=== PATIENT | female | born 1930 | race Caucasian/White ===

== ENCOUNTER 2018-06-26 05:48 | Day surgery (SDC) | payer MEDICARE, BC ==
[2018-06-26] MEDS ORDERED: ALPRAZolam 0.25 MG TAB PO PRN (06:01)
[2018-06-26] MEDS ORDERED: NITROGLYCERIN SL TABS 0.4 MG TAB SUBLINGUAL PRN ×2 (06:01→10:16)
[2018-06-26] MEDS ORDERED: SODIUM CHLORIDE 0.9% 1,000 ML in EMPTY BAG 1 BAG IV ONE (06:01)
[2018-06-26] MEDS ORDERED: ASPIRIN 325 MG TAB PO STA (06:01)
[2018-06-26] MEDS ORDERED: ALPRAZolam 0.5 MG TAB PO PRN (06:01)
[2018-06-26] MEDS ORDERED: ATORVASTATIN 80 MG TAB PO STA (06:01)
[2018-06-26] MEDS ORDERED: LIDOCAINE 1% INJ 10MG/ML (20 ML MDV) ONE (09:06)
[2018-06-26] MEDS ORDERED: MIDAZOLAM 2 MG/2 ML VIAL ONE (09:07)
[2018-06-26] MEDS ORDERED: LIDOCAINE 1% (PF) 10MG/ML VIAL SQ ONE (09:08)
[2018-06-26] MEDS: MIDAZOLAM 2 MG/2 ML VIAL IV ONE ×2 (09:10→09:49)
[2018-06-26] MEDS ORDERED: POTASSIUM CHLORIDE 20 MEQ in WATER FOR INJECTION 1 100ML.BAG IVPB STA (09:32)
[2018-06-26] MEDS ORDERED: BIVALIRUDIN BOLUS 250 MG/50 ML IV ONE (09:42)
[2018-06-26] MEDS ORDERED: BIVALIRUDIN 250 MG in SODIUM CHLORIDE 0.9% 50 ML IV ONE (09:43)
--- NOTE | 2018-06-26 09:58 | CC ---
CARDIAC CATHETERIZATION REPORT INDICATION: Unstable angina. This is an 88-year-old lady who recently presented to me with symptoms of exertional shortness of breath and chest tightness and was advised to undergo cardiac catheterization. She had been explained of risks, benefits and alternatives understood and accepted. Her renal function showed that the BUN and creatinine are elevated. She has been brought in earlier and received hydration. She understands the risk of contrast induced nephropathy. PROCEDURE NOTE: After obtaining informed consent, left heart catheterization and coronary angiogram were performed via the right femoral artery using standard Jakob catheters. The patient tolerated the procedure well without any obvious immediate complications. The patient received moderate conscious sedation and total sedation time was 17 minutes. FINDINGS: 1. HEMODYNAMICS: Left ventricular end-diastolic pressure is 14 to 16 mm. There is no significant gradient across the aortic valve. 2. LEFT VENTRICULOGRAM: Left ventriculogram is not performed. 3. ANGIOGRAPHIC DATA: 4. Left main coronary artery: Left main coronary artery appears calcified but is free of significant stenosis. Divides into left anterior descending coronary artery and circumflex coronary artery. LAD and circumflex are calcified. The circumflex coronary artery is a nondominant vessel, shows mild nonobstructive coronary artery disease. LAD shows a 99% stenosis in its midportion with slow filling of the distal LAD. Right coronary artery is a large dominant vessel that shows mild atherosclerotic plaque in its proximal portion. CONCLUSIONS: A 99% stenosis involving mid left anterior descending artery. PLAN: Patient will undergo angioplasty of the LAD. MMODL / IJN: [id number] /
[2018-06-26] MEDS ORDERED: IOPAMIDOL-370 125ML BTL INJ ONE (10:01)
[2018-06-26] MEDS ORDERED: CLOPIDOGREL 75 MG TAB ONE (10:06)
[2018-06-26] MEDS ORDERED: NITROGLYCERIN 1000MCG/10ML SYRINGE INTRACORON ONE (10:08)
[2018-06-26] MEDS ORDERED: CLOPIDOGREL 75 MG TAB PO ONE (10:08)
[2018-06-26] MEDS ORDERED: MAG HYDROX/AL HYDROX/SIMETH 30 ML CUP PO PRN (10:16)
[2018-06-26] MEDS ORDERED: ZOLPIDEM 5 MG TAB PO PRN (10:16)
[2018-06-26] MEDS ORDERED: RX INFO: IV CONTRAST WAS GIVEN 1 EACH MISC MISCELLANE PRN (10:16)
[2018-06-26] MEDS ORDERED: ATROPINE SULFATE 0.1 MG/ML 10ML SYRINGE IV PRN (10:16)
[2018-06-26] MEDS ORDERED: IOPAMIDOL-370 100ML BTL INJ ONE (10:17)
[2018-06-26] MEDS: SODIUM CHLORIDE 0.9% 1,000 ML IV SCH (13:46)
--- NOTE | 2018-06-26 16:43 | PTCA ---
PERCUTANEOUSTRANS CORORONARY ANGIOGRAPHY DATE OF SERVICE: 06/26/2018 PROCEDURE PERFORMED: PTCA and stenting of mid left anterior descending coronary artery within a previously stented lesion which was the restenotic lesion. Drug-eluting stent was used. PERFORMED BY: Dr. Gildardo Blunt. SEDATION: Moderate conscious sedation time was 34 minutes. CLINICAL INFORMATION: Mrs. Ruth Ambrocio is an 88-year-old lady who underwent stenting of LAD performed more than 10 years ago in [place]. The details of the stent are not available. However, she came in with unstable and seen by Dr. Cifuentes, who performed the cardiac cath from right femoral approach. Catheterization revealed a there was a subtotal occlusion of the LAD with the distal half of the mid LAD stent with very sluggish flow and there was a question of some thrombus. She was advised intervention that was performed in the same setting. PROCEDURE NOTE: The existing 6-Swedish introducer in the right femoral artery was used to perform the procedure. I used initially a standard left Jakob guide catheter, but the guide support was inadequate. I switched over to a 3.5 curved XB LAD guide catheter and with this I was able to cannulate the left coronary artery. I used a Whisper wire which was a straight wire to cross the lesion. I could not cross the lesion and wire was kept at the lesion and I used a 2.25 caliber 12 mm long Trek balloon and with this combination of balloon and whisper wire, I was able to cross the lesion and wire was kept distally. Predilatation was performed with this balloon at 8-9 atmospheres. Subsequently, I advanced a 2.5 caliber 12 mm long Xience stent and deployed this in the distal half of the previous stent at 13 atmospheres. Patient did not have chest pain but had subtle EKG changes. Excellent angiographic result was achieved. Just proximal to the stented segment which was also within the previously placed stent, I dilated using a 2.75 caliber NC Trek balloon up to 12 atmospheres. Excellent angiographic result was achieved without complication. The sheath was taken out and an Angio-Seal device used to secure hemostasis. She was sent to the room in a stable condition. Results were discussed with the patient's son and [id number]. The patient received Angiomax bolus and infusion and she also received an additional 150 mg of Plavix orally. Excellent angiographic result without complication was achieved. MMODL / IJN: [id number] /
[2018-06-26] MEDS: GABAPENTIN 100 MG CAP PO SCH (20:11)
[2018-06-26] MEDS ORDERED: ATORVASTATIN 40 MG TAB PO SCH (21:00)
[2018-06-27] MEDS: SODIUM CHLORIDE 0.9% 1,000 ML IV SCH (03:08)
[2018-06-27 06:20] LABS: Basophils # (A) 0.1 k/uL (0-0.2); Basophils % (A) 1 %; Eosinophils # (A) 0.4 k/uL (0-0.7); Eosinophils % (A) 5 %; Lymphocytes % (A) 24 %; MCH 29.3 pg (25.0-35.0); MCV 94.4 fL (80.0-100.0); Mean Platelet Volume 6.6; Monocytes # (A) 0.4 k/uL (0-1.0); Monocytes % (A) 5 %; Neutrophils # (A) 5.2 k/uL (1.3-7.7); Neutrophils % (A) 64 %; Platelet Count 197 k/uL (150-450); RBC 4.45 m/uL (3.80-5.40); RDW 14.5 % (11.5-15.5); WBC 8.1 k/uL (3.8-10.6)
[2018-06-27 06:25] LABS: Calcium 8.5 mg/dL (8.4-10.2)
[2018-06-27 07:30] VITALS: BP 120/84; PULSE 89; RESP 22; TEMP 97.7
[2018-06-27] MEDS: GABAPENTIN 100 MG CAP PO SCH (08:15)
--- NOTE | 2018-06-27 08:27 | DS ---
DISCHARGE SUMMARY DIAGNOSIS: Unstable angina. PROCEDURES PERFORMED: 1. Left heart catheterization. 2. Angioplasty with stent placement of LAD. HOSPITAL COURSE: This is an 88-year-old lady who presented to me with symptoms of unstable angina in the form of new onset exertion, shortness of breath and fatigue and tiredness. She underwent cardiac catheterization for the same and found to have 99% stenosis involving mid LAD for which she underwent angioplasty with stent placement. This morning she is doing well and is free of symptoms. LABS: Show that the creatinine is normal as is the hemoglobin and platelet count. She is ambulating without any problems. PHYSICAL EXAM: Afebrile. Vital signs are stable. There is no jugular venous distention. Chest exam reveals good air entry bilaterally. Heart exam reveals first and second heart sounds and a systolic murmur at the apex. Abdomen is soft. Exam of extremities did not reveal edema. Peripheral pulses are felt. Her groin is free of bleeding, bruit, hematoma. Foot pulses are intact. EKG shows sinus rhythm with PVCs inside a paced rhythm with PVCs and nonspecific ST-T wave changes. Lab show a creatinine of 0.8, hemoglobin is 13. FOLLOWUP: Patient will be followed up in my office in a week's time. DISCHARGE MEDICATION: She will go home on: 1. Aspirin. 2. Plavix 75 mg daily. 3. Amiodarone 200 daily. 4. Norvasc 10 mg daily. 5. Zoloft. 6. Lipitor 40 mg daily. 7. Neurontin 100 b.i.d. 8. Lasix 20 mg daily. 9. Losartan hydrochlorothiazide/. 10.Toprol-XL 25 mg daily. 11.Sublingual nitroglycerin on p.r.n. basis. MMODL / IJN: [id number] /
[2018-06-27] MEDS ORDERED: HYDROCHLOROTHIAZIDE 12.5 MG CAP PO SCH (09:00)
[2018-06-27] MEDS ORDERED: AMIODARONE 200 MG TAB PO SCH (09:00)
[2018-06-27] MEDS ORDERED: CLOPIDOGREL 75 MG TAB PO SCH (09:00)
[2018-06-27] MEDS ORDERED: METOPROLOL SUCCINATE (ER) 25 MG TAB.ER.24H PO SCH (09:00)
[2018-06-27] MEDS ORDERED: SERTRALINE 100 MG TAB PO SCH (09:00)
[2018-06-27] MEDS ORDERED: CYANOCOBALAMIN 500 MCG TAB PO SCH (09:00)
[2018-06-27] MEDS ORDERED: LOSARTAN 50 MG TAB PO SCH (09:00)
[2018-06-27] MEDS ORDERED: ASPIRIN 81 MG PO SCH (09:00)
[2018-06-27] MEDS ORDERED: FUROSEMIDE 20 MG TAB PO SCH (09:00)
[2018-06-27 09:50] VITALS: BMI 35.6
[2018-06-27] MEDS ORDERED: MULTIVITAMINS, THERA 1 EACH TAB PO SCH (12:00)
[2018-07-01] MEDS ORDERED: ERGOCALCIFEROL 50,000 UNIT CAP PO SCH (09:00)
== END 2018-06-27 10:09 | disposition home or self-care (01) ==
LOC: CATHCVL 05:48 → 6SEL 10:14 → CATHCVL 06-27 10:09
PROVIDERS: ATTEND Internal Medicine Cardiovascular Disease
DX: T82.855A Stenosis of coronary artery stent, initial encounter (principal); I25.110 Atherosclerotic heart disease of native coronary artery with unstable angina pectoris; I49.3 Ventricular premature depolarization; I11.0 Hypertensive heart disease with heart failure; I50.32 Chronic diastolic (congestive) heart failure; E78.2 Mixed hyperlipidemia; I49.5 Sick sinus syndrome; Z95.0 Presence of cardiac pacemaker; Z82.49 Family history of ischemic heart disease and other diseases of the circulatory system; Z79.02 Long term (current) use of antithrombotics/antiplatelets; Z79.899 Other long term (current) drug therapy; Z88.5 Allergy status to narcotic agent
CPT/HCPCS: 93458; 80048; 85025; C9600; C1760; C1769 ×2; C1887 ×2; C1725 ×2; C1894; C1874; J2250; J3480; J0583; J2001; Q9967 ×2

== ENCOUNTER 2018-07-04 19:54 | Emergency (ER) | payer MEDICARE, BC ==
[2018-07-04 20:07] VITALS: TEMP 98.2
[2018-07-04 21:07] LABS: Basophils % (A) 0 %; Eosinophils # (A) 0.2 k/uL (0-0.7); Eosinophils % (A) 3 %; HCT 42.2 % (34.0-46.0); HGB 14.4 gm/dL (11.4-16.0); Lymphocytes # (A) 1.3 k/uL (1.0-4.8); Lymphocytes % (A) 23 %; MCH 30.3 pg (25.0-35.0); MCHC 34.1 g/dL (31.0-37.0); Mean Platelet Volume 6.8; Monocytes # (A) 0.3 k/uL (0-1.0); Monocytes % (A) 6 %; Neutrophils # (A) 3.8 k/uL (1.3-7.7); Neutrophils % (A) 67 %; Platelet Count 217 k/uL (150-450); RBC 4.75 m/uL (3.80-5.40); RDW 14.6 % (11.5-15.5); WBC 5.7 k/uL (3.8-10.6)
--- NOTE | 2018-07-04 21:15 | ED ---
SOB HPI - General Chief Complaint: Shortness of Breath Stated Complaint: Congestion Time Seen by Provider: 07/04/18 20:06 Source: patient, RN notes reviewed, old records reviewed Mode of arrival: wheelchair Limitations: no limitations - History of Present Illness Initial Comments: This is an 88-year-old female the ER for evaluation weakness and not feeling well. Overall fatigue. Patient is ER catheterization a week ago states since that she's been having difficulty with her level, bleeding mild depression. Patient just overall fatigue. Patient has had multiple recent changes in medication, multiple Medications patient is on, no fevers cough or congestion MD Complaint: shortness of breath, anxiety -: days(s) Severity: mild Severity scale (1-10): 3 Quality: other (Fatigued) Improves With: nothing Worsens With: exertion Associated Symptoms: denies other symptoms Treatments Prior to Arrival: none - Related Data Home Medications Medication Instructions Recorded Confirmed Amiodarone [Cordarone] 200 mg PO DAILY 06/24/18 07/04/18 Atorvastatin [Lipitor] 40 mg PO DAILY 06/24/18 07/04/18 Clopidogrel [Plavix] 75 mg PO DAILY 06/24/18 07/04/18 Cyanocobalamin (Vitamin B-12) 1,000 mcg PO DAILY 06/24/18 07/04/18 [Vitamin B-12] Ergocalciferol (Vitamin D2) 50,000 unit PO TH 06/24/18 07/04/18 [Vitamin D2] Furosemide [Lasix] 20 mg PO DAILY 06/24/18 07/04/18 Gabapentin [Neurontin] 100 mg PO BID 06/24/18 07/04/18 Losartan/Hydrochlorothiazide 1 tab PO DAILY 06/24/18 07/04/18 [Losartan-Hctz 100-12.5 mg Tab] Multivit with Calcium,Iron,Min 1 tab PO DAILY 06/24/18 07/04/18 [Women's Multivitamin] Sertraline [Zoloft] 100 mg PO DAILY 06/24/18 07/04/18 amLODIPine [Norvasc] 10 mg PO DAILY 06/24/18 07/04/18 Metoprolol Succinate (ER) [Toprol 25 mg PO DAILY 07/04/18 07/04/18 XL] Previous Rx's Medication Instructions Recorded Nitroglycerin Sl Tabs [Nitrostat] 0.4 mg SUBLINGUAL Q5M PRN #25 tab 06/27/18 Allergies Allergy/AdvReac Type Severity Reaction Status Date / Time morphine AdvReac Nausea & Verified 07/04/18 20:43 Vomiting Review of Systems ROS Statement: Those systems with pertinent positive or pertinent negative responses have been documented in the HPI. ROS Other: All systems not noted in ROS Statement are negative. Past Medical History Past Medical History: Heart Failure, Hyperlipidemia, Hypertension, Myocardial Infarction ([place]), Musculoskeletal Disorder, Osteoarthritis (OA) Additional Past Medical History / Comment(s): worsening SOB w/exertion, frequent fatigue, uses oxygen @2l @[facility] & sometimes during the day depending on sats., occasional stool incontinence, urinary incontinence, fell & dislocated left shoulder in February 2018-no surgery but limited mobility w/it Last Myocardial Infarction Date:: unknown History of Any Multi-Drug Resistant Organisms: None Reported Past Surgical History: Appendectomy, Heart Catheterization With Stent, Pacemaker , Tonsillectomy Past Anesthesia/Blood Transfusion Reactions: No Reported Reaction Date of Last Stent Placement:: 2007 Type of Cardiac Device: Permanent Pacemaker Device Placement Date:: 08-10-14 Past Psychological History: Anxiety, Depression Smoking Status: Never smoker Past Alcohol Use History: Occasional Past Drug Use History: None Reported - Past Family History Father Family Medical History: Cancer General Exam Limitations: no limitations General appearance: alert, in no apparent distress Head exam: Present: atraumatic, normocephalic, normal inspection Eye exam: Present: normal appearance, PERRL, EOMI. Absent: scleral icterus, conjunctival injection, periorbital swelling ENT exam: Present: normal exam, mucous membranes moist Neck exam: Present: normal inspection. Absent: tenderness, meningismus, lymphadenopathy Respiratory exam: Present: normal lung sounds bilaterally. Absent: respiratory distress, wheezes, rales, rhonchi, stridor Cardiovascular Exam: Present: regular rate, normal rhythm, normal heart sounds. Absent: systolic murmur, diastolic murmur, rubs, gallop, clicks GI/Abdominal exam: Present: soft, normal bowel sounds. Absent: distended, tenderness, guarding, rebound, rigid Extremities exam: Present: normal inspection, full ROM, normal capillary refill. Absent: tenderness, pedal edema, joint swelling, calf tenderness Back exam: Present: normal inspection Neurological exam: Present: alert, oriented X3, CN II-XII intact Psychiatric exam: Present: normal affect, normal mood Skin exam: Present: warm, dry, intact, normal color. Absent: rash Course Vital Signs 07/04/18 07/04/18 07/04/18 20:04 20:38 21:48 Temperature 98.2 F Pulse Rate 80 80 Respiratory 16 17 19 Rate Blood Pressure 106/72 123/75 O2 Sat by Pulse 94 L 96 Oximetry 07/04/18 23:25 Temperature Pulse Rate 61 Respiratory 18 Rate Blood Pressure 125/71 O2 Sat by Pulse 97 Oximetry - Reevaluation(s) Reevaluation #1: Medical records thoroughly reviewed Patient consult with at length, at this point patient is asymptomatic and will be followed up with cardiology Medical Decision Making - Medical Decision Making 88 female the ER for evaluation, patient resents for evaluation regarding fatigue patient will be discharged home - Lab Data Result diagrams: 07/04/18 20:35 07/04/18 20:35 Lab Results 07/04/18 07/04/18 07/04/18 Range/Units 20:35 20:35 20:35 WBC 5.7 (3.8-10.6) k/uL RBC 4.75 (3.80-5.40) m/uL Hgb 14.4 (11.4-16.0) gm/dL Hct 42.2 (34.0-46.0) % MCV 88.9 D (80.0-100.0) fL MCH 30.3 (25.0-35.0) pg MCHC 34.1 (31.0-37.0) g/dL RDW 14.6 (11.5-15.5) % Plt Count 217 (150-450) k/uL Neutrophils % 67 % Lymphocytes % 23 % Monocytes % 6 % Eosinophils % 3 % Basophils % 0 % Neutrophils # 3.8 (1.3-7.7) k/uL Lymphocytes # 1.3 (1.0-4.8) k/uL Monocytes # 0.3 (0-1.0) k/uL Eosinophils # 0.2 (0-0.7) k/uL Basophils # 0.0 (0-0.2) k/uL PT (9.0-12.0) sec INR (<1.2) APTT (22.0-30.0) sec Sodium 140 (137-145) mmol/L Potassium 3.8 (3.5-5.1) mmol/L Chloride 102 (98-107) mmol/L Carbon Dioxide 27 (22-30) mmol/L Anion Gap 11 mmol/L BUN 27 H (7-17) mg/dL Creatinine 0.98 (0.52-1.04) mg/dL Est GFR (CKD-EPI)AfAm 60 (>60 ml/min/1.73 sqM) Est GFR (CKD-EPI)NonAf 52 (>60 ml/min/1.73 sqM) Glucose 124 H (74-99) mg/dL Calcium 8.9 (8.4-10.2) mg/dL Phosphorus 3.6 (2.5-4.5) mg/dL Magnesium 2.2 (1.6-2.3) mg/dL Total Bilirubin 0.8 (0.2-1.3) mg/dL AST 37 H (14-36) U/L ALT 43 (9-52) U/L Alkaline Phosphatase 124 (38-126) U/L Total Creatine Kinase 34 (30-135) U/L CK-MB (CK-2) 0.8 (0.0-2.4) ng/mL CK-MB (CK-2) Rel Index 2.4 Troponin I 0.014 (0.000-0.034) ng/mL Total Protein 6.5 (6.3-8.2) g/dL Albumin 3.9 (3.5-5.0) g/dL 07/04/18 Range/Units 20:35 WBC (3.8-10.6) k/uL RBC (3.80-5.40) m/uL Hgb (11.4-16.0) gm/dL Hct (34.0-46.0) % MCV (80.0-100.0) fL MCH (25.0-35.0) pg MCHC (31.0-37.0) g/dL RDW (11.5-15.5) % Plt Count (150-450) k/uL Neutrophils % % Lymphocytes % % Monocytes % % Eosinophils % % Basophils % % Neutrophils # (1.3-7.7) k/uL Lymphocytes # (1.0-4.8) k/uL Monocytes # (0-1.0) k/uL Eosinophils # (0-0.7) k/uL Basophils # (0-0.2) k/uL PT 10.2 (9.0-12.0) sec INR 1.0 (<1.2) APTT 20.1 L (22.0-30.0) sec Sodium (137-145) mmol/L Potassium (3.5-5.1) mmol/L Chloride (98-107) mmol/L Carbon Dioxide (22-30) mmol/L Anion Gap mmol/L BUN (7-17) mg/dL Creatinine (0.52-1.04) mg/dL Est GFR (CKD-EPI)AfAm (>60 ml/min/1.73 sqM) Est GFR (CKD-EPI)NonAf (>60 ml/min/1.73 sqM) Glucose (74-99) mg/dL Calcium (8.4-10.2) mg/dL Phosphorus (2.5-4.5) mg/dL Magnesium (1.6-2.3) mg/dL Total Bilirubin (0.2-1.3) mg/dL AST (14-36) U/L ALT (9-52) U/L Alkaline Phosphatase (38-126) U/L Total Creatine Kinase (30-135) U/L CK-MB (CK-2) (0.0-2.4) ng/mL CK-MB (CK-2) Rel Index Troponin I (0.000-0.034) ng/mL Total Protein (6.3-8.2) g/dL Albumin (3.5-5.0) g/dL - EKG Data -: EKG Interpreted by Me (EKG shows paced rhythm rate of 73, CO 210, QRS 92, QTc 458) - Radiology Data Radiology results: report reviewed (Chest x-rays negative for acute disease), image reviewed Disposition Clinical Impression: Weakness Disposition: HOME SELF-CARE Condition: Good Instructions: Weakness (ED) Is patient prescribed a controlled substance at d/c from ED?: No Referrals: Oliver Balbuena MD [Primary Care Provider] - 1-2 days
[2018-07-04 21:17] LABS: Albumin 3.9 g/dL (3.5-5.0); Calcium 8.9 mg/dL (8.4-10.2); Magnesium 2.2 mg/dL (1.6-2.3); Phosphorus 3.6 mg/dL (2.5-4.5); Potassium 3.8 mmol/L (3.5-5.1); Total Bilirubin 0.8 mg/dL (0.2-1.3); Total Protein 6.5 g/dL (6.3-8.2)
[2018-07-04 21:20] LABS: MCV 88.9 fL (80.0-100.0)
[2018-07-04 21:22] LABS: Prothrombin Time 10.2 sec (9.0-12.0)
[2018-07-04 21:27] LABS: Partial Thromboplastin Time 20.1 sec (22.0-30.0)
--- NOTE | 2018-07-04 21:51 | XR ---
EXAMINATION TYPE: XR chest 2V DATE OF EXAM: 07/04/2018 COMPARISON: NONE HISTORY: Weakness TECHNIQUE: Frontal and lateral views of the chest are obtained. FINDINGS: There is no heart failure nor confluent pneumonic infiltrate. Costophrenic angles are ronald r. Thoracic aorta is atheromatous. There is left axillary pacemaker with the lead tips in the right v entricle. There are small calcified granulomata in the right lung. IMPRESSION: Aneurysmal thoracic aorta. No active cardiopulmonary disease.
[2018-07-04 22:32] LABS: Creatine Kinase MB 0.8 ng/mL (0.0-2.4); Troponin I 0.014 ng/mL (0.000-0.034)
[2018-07-04 23:26] VITALS: BP 125/71; PULSE 61; RESP 18
== END 2018-07-04 23:25 | disposition home or self-care (01) ==
LOC: EC 19:54
DX: R53.1 Weakness (principal); R06.02 Shortness of breath; F41.9 Anxiety disorder, unspecified; F32.9 Major depressive disorder, single episode, unspecified; I11.0 Hypertensive heart disease with heart failure; I50.9 Heart failure, unspecified; E78.5 Hyperlipidemia, unspecified; I25.2 Old myocardial infarction; Z95.5 Presence of coronary angioplasty implant and graft; Z95.0 Presence of cardiac pacemaker; Z79.02 Long term (current) use of antithrombotics/antiplatelets; Z79.899 Other long term (current) drug therapy; Z88.5 Allergy status to narcotic agent
CPT/HCPCS: 36415; 71046; 80053; 82550; 82553; 83735; 84100; 84484; 85025; 85610; 85730; 93005; 99285

== ENCOUNTER 2018-08-22 11:52 | Emergency (ER) | payer MEDICARE, BC ==
[2018-08-22 12:02] VITALS: RESP 18
[2018-08-22] MEDS ORDERED: HYDROmorphone 1 MG/ML 1 ML SYRINGE IVP STA ×2 (12:09→12:46)
[2018-08-22] MEDS ORDERED: ONDANSETRON 4 MG/2 ML VIAL IVP STA (12:10)
--- NOTE | 2018-08-22 12:50 | ED ---
Extremity Problem HPI - General Chief complaint: Extremity Problem,Nontraumatic Stated complaint: Shoulder pain Time Seen by Provider: 08/22/18 12:05 Source: patient, EMS, RN notes reviewed Mode of arrival: EMS Limitations: no limitations - History of Present Illness Initial comments: This a 88-year-old female presents emergency Department chief complaint of left shoulder pain. Patient's had multiple prior dislocations. Patient states she woke up and the pain felt like she rolled on it wrong. Patient states she has not see a local orthopedic physician as she is new to the area. She states she moved from [place]. Patient denies any chest pain, shortness breath, headache or dizziness. Patient did not take anything for pain at this time. She states she has no movement secondary to that her symptoms. - Related Data Home Medications Medication Instructions Recorded Confirmed Amiodarone [Cordarone] 200 mg PO DAILY 06/24/18 08/22/18 Atorvastatin [Lipitor] 40 mg PO DAILY 06/24/18 08/22/18 Clopidogrel [Plavix] 75 mg PO DAILY 06/24/18 08/22/18 Cyanocobalamin (Vitamin B-12) 1,000 mcg PO DAILY 06/24/18 08/22/18 [Vitamin B-12] Ergocalciferol (Vitamin D2) 50,000 unit PO TH 06/24/18 08/22/18 [Vitamin D2] Furosemide [Lasix] 20 mg PO DAILY 06/24/18 08/22/18 Gabapentin [Neurontin] 100 mg PO BID 06/24/18 08/22/18 Losartan/Hydrochlorothiazide 1 tab PO DAILY 06/24/18 08/22/18 [Losartan-Hctz 100-12.5 mg Tab] Multivit with Calcium,Iron,Min 1 tab PO DAILY 06/24/18 08/22/18 [Women's Multivitamin] Sertraline [Zoloft] 100 mg PO DAILY 06/24/18 08/22/18 amLODIPine [Norvasc] 10 mg PO DAILY 06/24/18 08/22/18 Metoprolol Succinate (ER) [Toprol 25 mg PO DAILY 07/04/18 08/22/18 XL] Previous Rx's Medication Instructions Recorded Nitroglycerin Sl Tabs [Nitrostat] 0.4 mg SUBLINGUAL Q5M PRN #25 tab 06/27/18 Allergies Allergy/AdvReac Type Severity Reaction Status Date / Time morphine AdvReac Nausea & Verified 08/22/18 12:24 Vomiting Review of Systems ROS Statement: Those systems with pertinent positive or pertinent negative responses have been documented in the HPI. ROS Other: All systems not noted in ROS Statement are negative. Past Medical History Past Medical History: Heart Failure, Hyperlipidemia, Hypertension, Myocardial Infarction ([place]), Musculoskeletal Disorder, Osteoarthritis ([place]) Additional Past Medical History / Comment(s): worsening SOB w/exertion, frequent fatigue, uses oxygen @2l @[facility] & sometimes during the day depending on sats., occasional stool incontinence, urinary incontinence, fell & dislocated left shoulder in February 2018-no surgery but limited mobility w/it Last Myocardial Infarction Date:: unknown History of Any Multi-Drug Resistant Organisms: None Reported Past Surgical History: Appendectomy, Heart Catheterization With Stent, Pacemaker , Tonsillectomy Past Anesthesia/Blood Transfusion Reactions: No Reported Reaction Date of Last Stent Placement:: 2007 Type of Cardiac Device: Permanent Pacemaker Device Placement Date:: 08-10-14 Past Psychological History: Anxiety, Depression Smoking Status: Never smoker Past Alcohol Use History: Occasional Past Drug Use History: None Reported - Past Family History Father Family Medical History: Cancer General Exam Limitations: no limitations General appearance: alert, in no apparent distress Head exam: Present: atraumatic, normocephalic, normal inspection Neck exam: Present: normal inspection, full ROM. Absent: tenderness, meningismus, lymphadenopathy Respiratory exam: Present: normal lung sounds bilaterally. Absent: respiratory distress, wheezes, rales, rhonchi, stridor Cardiovascular Exam: Present: regular rate, normal rhythm, normal heart sounds. Absent: systolic murmur, diastolic murmur, rubs, gallop, clicks Extremities exam: Present: other (Left shoulder diffuse tenderness, sulcus noted , neurovascular intact left arm limited range of motion secondary to pain and current symptoms. No tenderness distal to the left shoulder) Course Vital Signs 08/22/18 11:58 Temperature 98.3 F Pulse Rate 63 Respiratory 18 Rate Blood Pressure 148/93 O2 Sat by Pulse 97 Oximetry Procedures - Orthopedic Joint Reduction Joint #1 Consent Obtained: verbal consent Side: left Joint Reduction Location: shoulder Shoulder Technique Used (if applicable): Sharri Post-Reduction Neuro Exam: intact Post-Reduction Vascular Exam: intact Post Reduction X-Ray Results: reduced Patient Tolerated Procedure: well, no complications Medical Decision Making - Medical Decision Making 88-year-old female presented for left shoulder pain. Patient had left shoulder dislocation reduction was performed. Patient was placed in a sling and follow- up with orthopedics. Disposition Clinical Impression: Recurrent dislocation, left shoulder Disposition: TRANSFER TO PSYCH HOSP/UNIT Condition: Stable Instructions: Shoulder Dislocation (ED) Additional Instructions: Please wear sling and follow-up with orthopedics.Please return to the Emergency Department if symptoms worsen or any other concerns. Is patient prescribed a controlled substance at d/c from ED?: No Referrals: Oliver Balbuena MD [Primary Care Provider] - 1-2 days Jhonny Thorne MD [STAFF PHYSICIAN] - 1-2 days Time of Disposition: 13:57
--- NOTE | 2018-08-22 13:02 | XR ---
EXAMINATION TYPE: XR shoulder limited LT DATE OF EXAM: 08/22/2018 COMPARISON: NONE HISTORY: Pain TECHNIQUE: Shoulder examined in 2 views FINDINGS: There is an anterior inferior dislocation of the humeral head in relation to the glenoid. A glenoid fracture is not excluded. The acromio-clavicular junction is normal. IMPRESSION: 1. Anterior dislocation of the humerus from the glenoid. An inferior glenoid fracture is not excluded .
[2018-08-22] MEDS ORDERED: LORazepam 2 MG/ML INJ IV STA (13:04)
[2018-08-22] MEDS ORDERED: PROPOFOL 10 MG/ML 20 ML VIAL IV STA (13:17)
[2018-08-22 14:23] VITALS: BP 156/92; PULSE 62; TEMP 97.6
--- NOTE | 2018-08-22 14:30 | XR ---
EXAMINATION TYPE: XR shoulder limited LT DATE OF EXAM: 08/22/2018 COMPARISON: 08/22/2018 HISTORY: Post reduction TECHNIQUE: Single view of the left shoulder is obtained. FINDINGS: The humeral head appears to articulate with the glenoid on this image. The suspected inferi or glenoid fracture is not identified at this time. There is some prominence of the space at the acro mioclavicular junction measuring 0.8 cm. The alignment however appears preserved. This may be a chron ic change. Grade 1 separation should also be considered. IMPRESSION: 1. Reduction of the left shoulder dislocation. 2. Grade 1 separation of the AC joint is not excluded.
== END 2018-08-22 14:23 ==
LOC: EC 11:52
DX: M24.412 Recurrent dislocation, left shoulder (principal); I11.0 Hypertensive heart disease with heart failure; I50.9 Heart failure, unspecified; E78.5 Hyperlipidemia, unspecified; I25.2 Old myocardial infarction; M19.90 Unspecified osteoarthritis, unspecified site; F41.9 Anxiety disorder, unspecified; F32.9 Major depressive disorder, single episode, unspecified; Z95.5 Presence of coronary angioplasty implant and graft; Z95.0 Presence of cardiac pacemaker; Z79.02 Long term (current) use of antithrombotics/antiplatelets; Z79.899 Other long term (current) drug therapy; Z88.5 Allergy status to narcotic agent
CPT/HCPCS: 99285; 23650; 96374; 96375; 96376; 73020; L3670; J2405; J1170

== ENCOUNTER 2018-08-22 18:58 | Emergency (ER) | payer MEDICARE, BC ==
[2018-08-22 19:34] VITALS: RESP 18; TEMP 97.9
--- NOTE | 2018-08-22 19:41 | XR ---
EXAMINATION TYPE: XR shoulder limited LT DATE OF EXAM: 08/22/2018 CLINICAL HISTORY: Left shoulder pain, dislocation earlier today. TECHNIQUE: 2 views of left shoulder are obtained. COMPARISON: Left shoulder x-ray earlier today. FINDINGS: There is recurrent anterior shoulder dislocation with inferior medial positioning of the h umeral head relative to glenoid. No acute fractures seen. The acromioclavicular joint space appears within normal limits currently. There is partial visualization of pacemaker. IMPRESSION: There is recurrent anterior left shoulder dislocation.
[2018-08-22] MEDS ORDERED: HYDROmorphone 1 MG/ML 1 ML SYRINGE IVP STA (19:42)
[2018-08-22] MEDS ORDERED: ONDANSETRON 4 MG/2 ML VIAL IVP STA (19:42)
--- NOTE | 2018-08-22 20:02 | ED ---
Extremity Problem HPI - General Chief complaint: Extremity Problem,Nontraumatic Stated complaint: Should pain Time Seen by Provider: 08/22/18 19:17 Source: patient, EMS, RN notes reviewed Mode of arrival: EMS Limitations: no limitations - History of Present Illness Initial comments: 88-year-old female presents emergency from for left shoulder pain. Patient states developed while she was neck pain. Patient states that she was seen here earlier this morning for some her complaints and had dislocation. Initial injury was back in February when she fell and had dislocations. She states that happened several times. Patient denies any numbness or tingling. - Related Data Home Medications Medication Instructions Recorded Confirmed Amiodarone [Cordarone] 200 mg PO DAILY 06/24/18 08/22/18 Atorvastatin [Lipitor] 40 mg PO DAILY 06/24/18 08/22/18 Clopidogrel [Plavix] 75 mg PO DAILY 06/24/18 08/22/18 Cyanocobalamin (Vitamin B-12) 1,000 mcg PO DAILY 06/24/18 08/22/18 [Vitamin B-12] Ergocalciferol (Vitamin D2) 50,000 unit PO TH 06/24/18 08/22/18 [Vitamin D2] Furosemide [Lasix] 20 mg PO DAILY 06/24/18 08/22/18 Gabapentin [Neurontin] 100 mg PO BID 06/24/18 08/22/18 Losartan/Hydrochlorothiazide 1 tab PO DAILY 06/24/18 08/22/18 [Losartan-Hctz 100-12.5 mg Tab] Multivit with Calcium,Iron,Min 1 tab PO DAILY 06/24/18 08/22/18 [Women's Multivitamin] Sertraline [Zoloft] 100 mg PO DAILY 06/24/18 08/22/18 amLODIPine [Norvasc] 10 mg PO DAILY 06/24/18 08/22/18 Metoprolol Succinate (ER) [Toprol 25 mg PO DAILY 07/04/18 08/22/18 XL] Previous Rx's Medication Instructions Recorded Nitroglycerin Sl Tabs [Nitrostat] 0.4 mg SUBLINGUAL Q5M PRN #25 tab 06/27/18 Allergies Allergy/AdvReac Type Severity Reaction Status Date / Time morphine AdvReac Nausea & Verified 08/22/18 19:20 Vomiting Review of Systems ROS Statement: Those systems with pertinent positive or pertinent negative responses have been documented in the HPI. ROS Other: All systems not noted in ROS Statement are negative. Past Medical History Past Medical History: Heart Failure, Hyperlipidemia, Hypertension, Myocardial Infarction ([place]), Musculoskeletal Disorder, Osteoarthritis ([place]) Additional Past Medical History / Comment(s): worsening SOB w/exertion, frequent fatigue, uses oxygen @2l @[facility] & sometimes during the day depending on sats., occasional stool incontinence, urinary incontinence, fell & dislocated left shoulder in February 2018-no surgery but limited mobility w/it Last Myocardial Infarction Date:: unknown History of Any Multi-Drug Resistant Organisms: None Reported Past Surgical History: Appendectomy, Heart Catheterization With Stent, Pacemaker , Tonsillectomy Past Anesthesia/Blood Transfusion Reactions: No Reported Reaction Date of Last Stent Placement:: 2007 Type of Cardiac Device: Permanent Pacemaker Device Placement Date:: 08-10-14 Past Psychological History: Anxiety, Depression Smoking Status: Never smoker Past Alcohol Use History: Occasional Past Drug Use History: None Reported - Past Family History Father Family Medical History: Cancer General Exam Limitations: no limitations General appearance: alert, in no apparent distress Neck exam: Present: normal inspection, full ROM. Absent: tenderness, meningismus, lymphadenopathy Respiratory exam: Present: normal lung sounds bilaterally. Absent: respiratory distress, wheezes, rales, rhonchi, stridor Cardiovascular Exam: Present: regular rate, normal rhythm, normal heart sounds. Absent: systolic murmur, diastolic murmur, rubs, gallop, clicks Extremities exam: Present: other (Limited range of motion to left shoulder, sulcus is noted, tenderness with palpation, left arm neurovascular intact) Neurological exam: Present: alert, oriented X3, CN II-XII intact Skin exam: Present: warm, dry, intact, normal color. Absent: rash Course Vital Signs 08/22/18 19:28 Temperature 97.9 F Pulse Rate 71 Respiratory 18 Rate Blood Pressure 177/110 O2 Sat by Pulse 98 Oximetry Procedures - Orthopedic Joint Reduction Joint #1 Consent Obtained: verbal consent Side: left Joint Reduction Location: shoulder Shoulder Technique Used (if applicable): Sharri Post-Reduction Neuro Exam: intact Post-Reduction Vascular Exam: intact Post Reduction X-Ray Obtained: Yes Post Reduction X-Ray Results: reduced Additional Comments: Shoulder immobilizer Medical Decision Making - Medical Decision Making 88 show female presented emergency dept for left shoulder pain. Patient had recurrent shoulder dislocation. She'll be placed in a shoulder immobilizer and follow-up with orthopedics. Disposition Clinical Impression: Recurrent dislocation, left shoulder Disposition: HOME SELF-CARE Condition: Stable Instructions: Shoulder Dislocation (ED) Additional Instructions: Please return to the Emergency Department if symptoms worsen or any other concerns. Is patient prescribed a controlled substance at d/c from ED?: No Referrals: Oliver Balbuena MD [Primary Care Provider] - 1-2 days Jhonny Thorne MD [STAFF PHYSICIAN] - 1-2 days Time of Disposition: 20:23
--- NOTE | 2018-08-22 20:15 | XR ---
EXAMINATION TYPE: XR shoulder limited LT DATE OF EXAM: 08/22/2018 CLINICAL HISTORY: Shoulder dislocation TECHNIQUE: Post reduction single frontal view of the left shoulder is obtained. COMPARISON: Left shoulder x-ray earlier today.. FINDINGS: There is successful interval reduction of anterior glenohumeral joint dislocation with imp roved alignment of humeral head relative to glenoid cavity on current study. No acute fracture is see n. There is once again partial visualization of overlying dual lead pacemaker. IMPRESSION: There is interval successful reduction of anterior left shoulder glenohumeral joint disl ocation.
[2018-08-22] MEDS ORDERED: ACET/COD 300 MG/30 MG STARTER PACK 6 TAB BTL PO STA (20:22)
[2018-08-22] MEDS ORDERED: HYDROcodone/APAP 7.5-325MG 1 EACH TAB PO ONE (20:22)
[2018-08-22 20:49] VITALS: BP 147/94; PULSE 62
== END 2018-08-22 20:48 | disposition home or self-care (01) ==
LOC: EC 18:58
DX: M24.412 Recurrent dislocation, left shoulder (principal); I11.0 Hypertensive heart disease with heart failure; I50.9 Heart failure, unspecified; E78.5 Hyperlipidemia, unspecified; I25.2 Old myocardial infarction; F41.9 Anxiety disorder, unspecified; F32.9 Major depressive disorder, single episode, unspecified; M19.90 Unspecified osteoarthritis, unspecified site; Z95.5 Presence of coronary angioplasty implant and graft; Z95.0 Presence of cardiac pacemaker; Z79.02 Long term (current) use of antithrombotics/antiplatelets; Z79.899 Other long term (current) drug therapy; Z88.5 Allergy status to narcotic agent
CPT/HCPCS: 73020; 99284; 23650; 96374; 96375; L3670; J2405; J1170

== ENCOUNTER 2018-11-12 13:48 | Emergency (ER) | payer MEDICARE, BC ==
[2018-11-12] MEDS ORDERED: HYDROmorphone 0.5 MG/0.5 ML SYRINGE IVP STA (14:05)
--- NOTE | 2018-11-12 14:09 | ED ---
General Adult HPI <Teodoro Bain - Last Filed: 11/12/18 17:08> - General Source: patient, EMS, RN notes reviewed Mode of arrival: EMS Limitations: no limitations <Nitesh Narvaez - Last Filed: 11/12/18 17:55> - General Chief complaint: Extremity Injury, Upper Stated complaint: Shoulder dislocation Time Seen by Provider: 11/12/18 14:00 - History of Present Illness Initial comments: 88-year-old female presents to the emergency department for a chief complaint of shoulder dislocation 1 hour. Patient states this has happened 3 times previously within the past 6 months. Patient states she is supposed to have a rotator cuff repair but did not want to do it before [place] so has not followed up. Patient states she was trying to get out of bed this morning when she felt her left shoulder dislocate. Patient states pain is similar to before. She denies any other injuries. She denies falling or hitting her head. Patient has no other complaints at this time including shortness of breath , chest pain, abdominal pain, nausea or vomiting, headache, or visual changes. ( Nitesh Narvaez) - Related Data Home Medications Medication Instructions Recorded Confirmed Amiodarone [Cordarone] 200 mg PO DAILY 06/24/18 11/12/18 Atorvastatin [Lipitor] 40 mg PO DAILY 06/24/18 11/12/18 Clopidogrel [Plavix] 75 mg PO DAILY 06/24/18 11/12/18 Cyanocobalamin (Vitamin B-12) 1,000 mcg PO DAILY 06/24/18 11/12/18 [Vitamin B-12] Ergocalciferol (Vitamin D2) 50,000 unit PO TH 06/24/18 11/12/18 [Vitamin D2] Furosemide [Lasix] 20 mg PO DAILY 06/24/18 11/12/18 Gabapentin [Neurontin] 100 mg PO BID 06/24/18 11/12/18 Losartan/Hydrochlorothiazide 1 tab PO DAILY 06/24/18 11/12/18 [Losartan-Hctz 100-12.5 mg Tab] Multivit with Calcium,Iron,Min 1 tab PO DAILY 06/24/18 11/12/18 [Women's Multivitamin] Sertraline [Zoloft] 100 mg PO DAILY 06/24/18 11/12/18 amLODIPine [Norvasc] 10 mg PO DAILY 06/24/18 11/12/18 Hydrocodone/Acetaminophen [[place] 1 tab PO Q6HR PRN 11/12/18 11/12/18 7.5-325] Allergies Allergy/AdvReac Type Severity Reaction Status Date / Time morphine AdvReac Nausea & Verified 11/12/18 17:07 Vomiting Review of Systems ROS Other: All systems not noted in ROS Statement are negative. <Teodoro Bain - Last Filed: 11/12/18 17:08> ROS Other: All systems not noted in ROS Statement are negative. <Nitesh Narvaez - Last Filed: 11/12/18 17:55> ROS Statement: Those systems with pertinent positive or pertinent negative responses have been documented in the HPI. Past Medical History Past Medical History: Heart Failure, Hyperlipidemia, Hypertension, Myocardial Infarction ([place]), Musculoskeletal Disorder, Osteoarthritis (OA) Additional Past Medical History / Comment(s): worsening SOB w/exertion, frequent fatigue, uses oxygen @2l @[facility] & sometimes during the day depending on sats., occasional stool incontinence, urinary incontinence, fell & dislocated left shoulder in February 2018-no surgery but limited mobility w/it Last Myocardial Infarction Date:: unknown History of Any Multi-Drug Resistant Organisms: None Reported Past Surgical History: Appendectomy, Heart Catheterization With Stent, Pacemaker , Tonsillectomy Past Anesthesia/Blood Transfusion Reactions: No Reported Reaction Date of Last Stent Placement:: 2007 Type of Cardiac Device: Permanent Pacemaker Device Placement Date:: 08-10-14 Past Psychological History: Anxiety, Depression Smoking Status: Never smoker Past Alcohol Use History: Occasional Past Drug Use History: None Reported - Past Family History Father Family Medical History: Cancer Additional Family Medical History / Comment(s): Lung cancer Mother Family Medical History: Coronary Artery Disease (CAD), CVA/TIA <Nitesh Narvaez P - Last Filed: 11/12/18 17:55> General Exam Limitations: no limitations General appearance: alert, in no apparent distress Head exam: Present: atraumatic, normocephalic, normal inspection Eye exam: Present: normal appearance, PERRL, EOMI. Absent: scleral icterus, conjunctival injection, periorbital swelling ENT exam: Present: normal exam, mucous membranes moist Neck exam: Present: normal inspection, full ROM. Absent: tenderness, meningismus, lymphadenopathy Respiratory exam: Present: normal lung sounds bilaterally. Absent: respiratory distress, wheezes, rales, rhonchi, stridor Cardiovascular Exam: Present: regular rate, normal rhythm, normal heart sounds. Absent: systolic murmur, diastolic murmur, rubs, gallop, clicks Extremities exam: Present: normal capillary refill (Capillary refill less than 2 seconds and radial pulse 2+ in the left upper extremity). Absent: full ROM ( Unable to move left shoulder) <Nitesh Narvaez P - Last Filed: 11/12/18 17:55> Vital Signs 11/12/18 11/12/18 11/12/18 13:56 15:29 15:34 Temperature 98.1 F Pulse Rate 71 66 81 Respiratory 16 18 18 Rate Blood Pressure 176/113 136/101 195/111 O2 Sat by Pulse 96 97 97 Oximetry 11/12/18 11/12/18 11/12/18 15:39 15:45 15:50 Temperature Pulse Rate 97 67 64 Respiratory 14 14 14 Rate Blood Pressure 173/101 178/106 182/115 O2 Sat by Pulse 95 97 96 Oximetry 11/12/18 11/12/18 11/12/18 16:00 16:15 16:30 Temperature Pulse Rate 80 65 70 Respiratory 20 20 20 Rate Blood Pressure 180/101 159/115 141/91 O2 Sat by Pulse 96 96 96 Oximetry 11/12/18 11/12/18 11/12/18 16:45 17:15 17:25 Temperature 98.2 F 98.6 F Pulse Rate 69 76 71 Respiratory 20 20 20 Rate Blood Pressure 126/83 127/87 106/56 O2 Sat by Pulse 96 95 98 Oximetry Procedures - Orthopedic Joint Reduction Joint #1 Consent Obtained: verbal consent, written consent Side: left Joint Reduction Location: shoulder Analgesia: procedural sedation Shoulder Technique Used (if applicable): traction/counter-traction Post-Reduction Neuro Exam: intact Post-Reduction Vascular Exam: intact Post Reduction X-Ray Obtained: Yes Post Reduction X-Ray Results: reduced Patient Tolerated Procedure: well, no complications - Procedural Sedation Procedural Sedation Start Time: 15:30 Procedural Sedation Stop Time: 15:57 Indications: fracture/dislocation reduction Preparation: literacy specialist applied, pulse oximeter, capnometry used, supplemental O2 applied IV Etomidate Dose (mgs): 16 Complications: none Patient Tolerated Procedure: well, no complications <Teodoro Bain - Last Filed: 11/12/18 17:08> Medical Decision Making <Teodoro Bain - Last Filed: 11/12/18 17:08> <Nitesh Narvaez - Last Filed: 11/12/18 17:55> - Medical Decision Making Patient was reevaluated. Family was upset that patient is not been admitted secondary to recurrent shoulder dislocations. There are explained this is not the standard treatment for shoulder dislocation. Case was discussed with practitioner Nikole Limon who states Dr. Calix, the patient's orthopedic physician is out of town and back on Saturday. She agrees patient should not be admitted and have them follow-up on Saturday. (Teodoro Bain) 88-year-old female presents to the emergency department for a chief complaint of left shoulder dislocation. This has happened multiple times. Patient states she was recommended to have a surgical repair done on October 06 but she wanted to try conservative management of using a sling first. X-ray did show an anterior shoulder dislocation with possible Hill-Sachs deformity. This was easily reduced with Dr. Bain. Patient was put in a shoulder immobilizer. Repeat x-ray did show the relocation of the humerus. Patient's family is upset that they are not being admitted and that surgery has not been done sooner. However at this time they are aware that admission for shoulder dislocation is not the standard of care and was able be best for them to follow up outpatient with their orthopedic doctor. Dr. Bain spoke with Nikole Limon's PA who agrees with this and recommends outpatient follow-up. Patient will make an appointment with Dr. Thorne who has been following her for this. They will return if she has any worsening symptoms and otherwise keep the sling in place. (Nitesh Narvaez) Disposition <Teodoro Bain - Last Filed: 11/12/18 17:08> Is patient prescribed a controlled substance at d/c from ED?: No <Nitesh Narvaez - Last Filed: 11/12/18 17:55> Clinical Impression: Dislocation of shoulder, left, closed Disposition: HOME SELF-CARE Condition: Good Instructions (If sedation given, give patient instructions): Shoulder Dislocation (ED), Moderate Sedation (ED) Additional Instructions: Please take Tylenol for pain. Please use shoulder immobilizer. Please follow- up with Dr. Thorne in one to 2 days. Please return to the emergency department if you have any worsening symptoms. Referrals: Oliver Balbuena MD [Primary Care Provider] - 1-2 days Jhonny Thorne MD [STAFF PHYSICIAN] - 1-2 days
--- NOTE | 2018-11-12 14:49 | XR ---
EXAMINATION TYPE: XR shoulder complete LT DATE OF EXAM: 11/12/2018 CLINICAL HISTORY: pain COMPARISON: 08/23/2018 TECHNIQUE: Three views of the left shoulder are obtained. FINDINGS: Anterior shoulder dislocation noted of the humerus relative to the glenoid. Suspect Hill-Sa chs deformity. AC joint is intact. The visualized ribs are intact and unremarkable. IMPRESSION: 1. Anterior left shoulder dislocation with Hill-Sachs deformity suspected.
[2018-11-12] MEDS ORDERED: ETOMIDATE 2 MG/ML 10 ML VIAL IVP STA (14:56)
--- NOTE | 2018-11-12 15:57 | XR ---
EXAMINATION TYPE: XR shoulder limited LT DATE OF EXAM: 11/12/2018 CLINICAL HISTORY: Post reduction COMPARISON: November 12, 2018 TECHNIQUE: Single postreduction views obtained. FINDINGS: There is relocation of the humerus relative to the glenoid. There appears to be Hill-Sachs deformity. Well-corticated ossific density adjacent to the greater humeral tuberosity may reflect a c hip fracture or avulsion fracture. IMPRESSION: 1. Relocation of the humerus relative to the glenoid.
[2018-11-12] MEDS ORDERED: ONDANSETRON 4 MG/2 ML VIAL IVP STA (15:58)
[2018-11-12 16:04] VITALS: RESP 20
[2018-11-12] MEDS ORDERED: hydrALAZINE HCL 20 MG/ML 1 ML VIAL IVP STA (16:30)
[2018-11-12 17:45] VITALS: BP 106/56; PULSE 71; TEMP 98.6
== END 2018-11-12 17:25 | disposition home or self-care (01) ==
LOC: EC 13:48
DX: S43.005A Unspecified dislocation of left shoulder joint, initial encounter (principal); I11.0 Hypertensive heart disease with heart failure; I50.9 Heart failure, unspecified; I25.2 Old myocardial infarction; E78.5 Hyperlipidemia, unspecified; M19.90 Unspecified osteoarthritis, unspecified site; F32.9 Major depressive disorder, single episode, unspecified; F41.9 Anxiety disorder, unspecified; Z79.01 Long term (current) use of anticoagulants; Z79.899 Other long term (current) drug therapy; Z88.5 Allergy status to narcotic agent; Z95.0 Presence of cardiac pacemaker; Z95.5 Presence of coronary angioplasty implant and graft; X58.XXXA Exposure to other specified factors, initial encounter; Y92.003 Bedroom of unspecified non-institutional (private) residence as the place of occurrence of the external cause; Z53.8 Procedure and treatment not carried out for other reasons
CPT/HCPCS: 99283 ×2; 23650 ×2; 99152 ×2; 99153 ×2; 96374 ×2; 96375 ×2; 73030; 73020; J2405; J1170

== ENCOUNTER 2018-11-13 08:19 | Inpatient (IN) | payer MEDICARE, BC ==
--- NOTE | 2018-11-13 08:54 | XR ---
EXAMINATION TYPE: XR shoulder complete LT DATE OF EXAM: 11/13/2018 COMPARISON: 11/12/2018 HISTORY: Pain TECHNIQUE: Shoulder examined in 3 projections FINDINGS: Humeral head is dislocated from the glenoid. The acromio-clavicular junction is normal. No acute fractures are evident. IMPRESSION: 1. Dislocation of the humeral head in relation to the glenoid
--- NOTE | 2018-11-13 09:05 | ED ---
General Adult HPI - General Chief complaint: Extremity Problem,Nontraumatic Stated complaint: LEFT SHOULDER INJURY, POSS DISLOCATION Time Seen by Provider: 11/13/18 08:22 Source: patient, RN notes reviewed, old records reviewed Mode of arrival: EMS Limitations: no limitations - History of Present Illness Initial comments: 88 -year-old female presents with chief complaint of pain in her left shoulder. Patient has history of chronic, recurrent left shoulder dislocation status post fall which occurred approximate 6 months ago. She was planning to have operative repair approximately 2 months ago but this was inconvenient at that time. She has been followed with orthopedics. She was in the emergency department yesterday with shoulder dislocation, and had satisfactory reduction, she was discharged home. She states that in the evening hours yesterday she did dislocate her shoulder again and has had constant pain since that time. She dislocated her shoulder while getting dressed at home. No recent falls, no injury, pain isolated to left shoulder. No hand numbness or tingling, no pain in the elbow, wrist, hand. - Related Data Home Medications Medication Instructions Recorded Confirmed Amiodarone [Cordarone] 200 mg PO DAILY 06/24/18 11/13/18 Atorvastatin [Lipitor] 40 mg PO DAILY 06/24/18 11/13/18 Clopidogrel [Plavix] 75 mg PO DAILY 06/24/18 11/13/18 Cyanocobalamin (Vitamin B-12) 1,000 mcg PO DAILY 06/24/18 11/13/18 [Vitamin B-12] Ergocalciferol (Vitamin D2) 50,000 unit PO Q7D 06/24/18 11/13/18 [Vitamin D2] Furosemide [Lasix] 20 mg PO DAILY 06/24/18 11/13/18 Gabapentin [Neurontin] 100 mg PO BID 06/24/18 11/13/18 Losartan/Hydrochlorothiazide 1 tab PO DAILY 06/24/18 11/13/18 [Losartan-Hctz 100-12.5 mg Tab] Multivit with Calcium,Iron,Min 1 tab PO DAILY 06/24/18 11/13/18 [Women's Multivitamin] Sertraline [Zoloft] 100 mg PO DAILY 06/24/18 11/13/18 amLODIPine [Norvasc] 10 mg PO DAILY 06/24/18 11/13/18 Hydrocodone/Acetaminophen [[place] 1 tab PO Q6HR PRN 11/12/18 11/13/18 7.5-325] Allergies Allergy/AdvReac Type Severity Reaction Status Date / Time morphine AdvReac Nausea & Verified 11/13/18 09:08 Vomiting Review of Systems ROS Statement: Those systems with pertinent positive or pertinent negative responses have been documented in the HPI. ROS Other: All systems not noted in ROS Statement are negative. Past Medical History Past Medical History: Heart Failure, Hyperlipidemia, Hypertension, Myocardial Infarction ([place]), Musculoskeletal Disorder, Osteoarthritis ([place]) Additional Past Medical History / Comment(s): worsening SOB w/exertion, frequent fatigue, uses oxygen @2l @[facility] & sometimes during the day depending on sats., occasional stool incontinence, urinary incontinence, fell & dislocated left shoulder in February 2018-no surgery but limited mobility w/it Last Myocardial Infarction Date:: unknown History of Any Multi-Drug Resistant Organisms: None Reported Past Surgical History: Appendectomy, Heart Catheterization With Stent, Pacemaker , Tonsillectomy Past Anesthesia/Blood Transfusion Reactions: No Reported Reaction Date of Last Stent Placement:: 2007 Type of Cardiac Device: Permanent Pacemaker Device Placement Date:: 08-10-14 Past Psychological History: Anxiety, Depression Smoking Status: Never smoker Past Alcohol Use History: Occasional Past Drug Use History: None Reported - Past Family History Father Family Medical History: Cancer Additional Family Medical History / Comment(s): Lung cancer Mother Family Medical History: Coronary Artery Disease (CAD), CVA/TIA General Exam Limitations: no limitations General appearance: alert, in no apparent distress Head exam: Present: atraumatic, normocephalic Eye exam: Present: normal appearance, PERRL ENT exam: Present: normal exam Neck exam: Present: normal inspection. Absent: tenderness Respiratory exam: Present: normal lung sounds bilaterally. Absent: respiratory distress, wheezes Cardiovascular Exam: Present: regular rate, normal rhythm GI/Abdominal exam: Present: soft. Absent: distended, tenderness Extremities exam: Present: normal capillary refill, other (Deformity left shoulder. Distal pulses intact, 2+. Normal sensation, normal motor). Absent: pedal edema, joint swelling Neurological exam: Present: alert, oriented X3, CN II-XII intact. Absent: motor sensory deficit Course Vital Signs 11/13/18 11/13/18 11/13/18 08:24 09:50 09:55 Pulse Rate 63 64 77 Respiratory 18 18 16 Rate Blood Pressure 130/80 161/86 210/111 O2 Sat by Pulse 91 L 99 97 Oximetry 11/13/18 11/13/18 11/13/18 10:05 10:15 10:30 Pulse Rate 69 74 64 Respiratory 18 17 18 Rate Blood Pressure 233/118 208/122 207/107 O2 Sat by Pulse 97 96 98 Oximetry 11/13/18 11/13/18 10:45 11:02 Pulse Rate 67 64 Respiratory 18 18 Rate Blood Pressure 183/97 165/92 O2 Sat by Pulse 96 96 Oximetry Procedures - Orthopedic Joint Reduction Joint #1 Consent Obtained: written consent Side: left Joint Reduction Location: shoulder Analgesia: procedural sedation Shoulder Technique Used (if applicable): traction/counter-traction Post-Reduction Neuro Exam: intact Post-Reduction Vascular Exam: intact Post Reduction X-Ray Obtained: Yes Post Reduction X-Ray Results: reduced Splint Applied: Yes (Left upper extremity sling) Patient Tolerated Procedure: well - Procedural Sedation Procedural Sedation Start Time: 09:50 Procedural Sedation Stop Time: 10:25 Indications: fracture/dislocation reduction ASA Class: II Mallampati Airway Score: 2 Preparation: registered nurse cardiac telemetry applied, pulse oximeter, capnometry used, supplemental O2 applied, suction/airway equipment at bedside IV Etomidate Dose (mgs): 9 Complications: none Patient Tolerated Procedure: well Medical Decision Making - Medical Decision Making 88-year-old female with chronic and recurrent left shoulder dislocation presenting with left shoulder dislocation. X-rays obtained, does show anterior dislocation, patient undergoes conscious sedation emergency department with reduction of left shoulder dislocation. Postreduction films are obtained and shows satisfactory reduction. Patient has significant pain associated with this dislocation and reduction. She is given pain medication the emergency department. She is having difficulty at home secondary to recurrence of her shoulder dislocations. Discussed case with, Dr. Chowdary, we will see the patient in consultation for evaluation. Case discussed with Dr. Samson, we will admit for pain control. - Lab Data Result diagrams: 11/13/18 09:15 11/13/18 09:15 Lab Results 11/13/18 11/13/18 11/13/18 Range/Units 09:15 09:15 09:15 WBC 6.9 (3.8-10.6) k/uL RBC 4.94 (3.80-5.40) m/uL Hgb 15.0 (11.4-16.0) gm/dL Hct 46.7 H (34.0-46.0) % MCV 94.6 (80.0-100.0) fL MCH 30.4 (25.0-35.0) pg MCHC 32.1 (31.0-37.0) g/dL RDW 13.7 (11.5-15.5) % Plt Count 182 (150-450) k/uL Neutrophils % 72 % Lymphocytes % 18 % Monocytes % 5 % Eosinophils % 3 % Basophils % 1 % Neutrophils # 5.0 (1.3-7.7) k/uL Lymphocytes # 1.2 (1.0-4.8) k/uL Monocytes # 0.4 (0-1.0) k/uL Eosinophils # 0.2 (0-0.7) k/uL Basophils # 0.0 (0-0.2) k/uL PT 10.2 (9.0-12.0) sec INR 0.9 (<1.2) APTT 22.6 (22.0-30.0) sec Sodium 142 (137-145) mmol/L Potassium 3.4 L (3.5-5.1) mmol/L Chloride 109 H (98-107) mmol/L Carbon Dioxide 26 (22-30) mmol/L Anion Gap 7 mmol/L BUN 26 H (7-17) mg/dL Creatinine 1.05 H (0.52-1.04) mg/dL Est GFR (CKD-EPI)AfAm 56 (>60 ml/min/1.73 sqM) Est GFR (CKD-EPI)NonAf 48 (>60 ml/min/1.73 sqM) Glucose 109 H (74-99) mg/dL Calcium 9.0 (8.4-10.2) mg/dL Total Bilirubin 1.1 (0.2-1.3) mg/dL AST 25 (14-36) U/L ALT 36 (9-52) U/L Alkaline Phosphatase 105 (38-126) U/L Total Protein 6.1 L (6.3-8.2) g/dL Albumin 3.7 (3.5-5.0) g/dL Disposition Clinical Impression: Dislocation of shoulder, left, closed Disposition: ADMITTED IP TO THIS [facility] Condition: Stable Referrals: Oliver Balbuena MD [Primary Care Provider] - 1-2 days
[2018-11-13 09:28] LABS: Basophils % (A) 1 %; Eosinophils # (A) 0.2 k/uL (0-0.7); Eosinophils % (A) 3 %; HCT 46.7 % (34.0-46.0); Lymphocytes # (A) 1.2 k/uL (1.0-4.8); Lymphocytes % (A) 18 %; MCH 30.4 pg (25.0-35.0); MCHC 32.1 g/dL (31.0-37.0); MCV 94.6 fL (80.0-100.0); Mean Platelet Volume 7.1; Monocytes # (A) 0.4 k/uL (0-1.0); Monocytes % (A) 5 %; Neutrophils % (A) 72 %; Platelet Count 182 k/uL (150-450); RBC 4.94 m/uL (3.80-5.40); RDW 13.7 % (11.5-15.5); WBC 6.9 k/uL (3.8-10.6)
[2018-11-13 09:32] LABS: Albumin 3.7 g/dL (3.5-5.0); Potassium 3.4 mmol/L (3.5-5.1); Total Bilirubin 1.1 mg/dL (0.2-1.3); Total Protein 6.1 g/dL (6.3-8.2)
[2018-11-13 09:33] LABS: INR 0.9 (<1.2); Partial Thromboplastin Time 22.6 sec (22.0-30.0); Prothrombin Time 10.2 sec (9.0-12.0)
[2018-11-13] MEDS ORDERED: ETOMIDATE 2 MG/ML 10 ML VIAL IV STA (09:37)
[2018-11-13] MEDS ORDERED: SODIUM CHLORIDE 0.9% 500 ML 500 ML IV ONE (09:38)
[2018-11-13] MEDS ORDERED: KETOROLAC 30 MG/ML 1 ML VIAL IVP STA (09:38)
[2018-11-13] MEDS ORDERED: ONDANSETRON 4 MG/2 ML VIAL IM STA (09:57)
--- NOTE | 2018-11-13 10:12 | XR ---
EXAMINATION TYPE: XR shoulder limited LT DATE OF EXAM: 11/13/2018 COMPARISON: 11/13/2018, 11/12/2018 HISTORY: Dislocation TECHNIQUE: Shoulder examined in single AP portable image. Images are limited due to motion artifact. FINDINGS: The humeral head articulates with the glenoid. The acromio-clavicular junction is normal. No acute fractures or dislocations are evident post reduction. Previous dislocation appears to be reduced. IMPRESSION: 1. Reduction of previous dislocation left shoulder. 2. No acute fractures post
[2018-11-13] MEDS ORDERED: HYDROmorphone 0.5 MG/0.5 ML SYRINGE IVP STA (10:57)
[2018-11-13] MEDS ORDERED: ONDANSETRON 4 MG/2 ML VIAL IVP PRN (11:13)
[2018-11-13] MEDS ORDERED: NALOXONE 0.4 MG/ML 1 ML VIAL IV PRN (11:13)
[2018-11-13] MEDS ORDERED: ACETAMINOPHEN TAB 325 MG TAB PO PRN (11:13)
[2018-11-13] MEDS ORDERED: HYDROmorphone 0.5 MG/0.5 ML SYRINGE IVP PRN (11:13)
[2018-11-13] MEDS ORDERED: POTASSIUM CHLORIDE ER 20 MEQ TAB.ER PO STA (11:18)
[2018-11-13] MEDS ORDERED: HYDROcodone/APAP 7.5-325MG 1 EACH TAB PO PRN ×2 (11:26→11:32)
[2018-11-13] MEDS ORDERED: IPRATROPIUM-ALBUTEROL 3 ML NEB INHALATION PRN (14:47)
[2018-11-13] MEDS ORDERED: FUROSEMIDE 10 MG/ML 2 ML VIAL IV STA (14:51)
--- NOTE | 2018-11-13 15:20 | P.HPIM ---
History of Present Illness H&P Date: 11/13/18 This is an 88-year-old female patient of Dr. 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 According to patient she had a fall in February 2018 but since then has significant pain in her left shoulder and had multiple dislocations and follows with Dr. Calix. She last saw him in August was put into a brace for 8 weeks. She has had 2 dislocations in the past 24 hours and came into the ER yesterday had reduction done went home and returned after the second dislocation. She is now being placed in the observation unit and consult with orthopedics. She has been started on Dilaudid along with Tamaroa and Voltaren gel added for pain control. Patient's initial blood pressure was 130/80 and subsequently 233/118, pulse ox 97% on 2 L, heart rate running in the 60s and 70s , afebrile. White count normal at 6.9, hemoglobin 15.0, BUN 26 and creatinine 1.05. Review of Systems All systems: negative Constitutional: Denies chills, Denies fever, Denies poor appetite, Denies weight loss Eyes: denies blurred vision, denies pain Ears, nose, mouth and throat: Denies dysphagia, Denies headache, Denies hoarseness, Denies sore throat, Denies vertigo Cardiovascular: Denies chest pain, Denies edema, Denies leg edema, Denies shortness of breath, Denies syncope Respiratory: Denies cough, Denies cough with sputum, Denies dyspnea, Denies excessive sputum, Denies hemoptysis, Denies home oxygen Gastrointestinal: Denies abdominal pain, Denies diarrhea, Denies loss of appetite, Denies nausea, Denies vomiting Genitourinary: Denies dysuria, Denies hematuria, Denies urgency, Denies urinary frequency Musculoskeletal: Denies frequent falls, Denies gait dysfunction, Denies muscle weakness, Denies myalgias Musculoskeletal: left: shoulder pain Integumentary: Denies pruritus, Denies rash, Denies wounds Neurological: Denies aphasia, Denies change in mentation, Denies change in speech, Denies confusion, Denies gait dysfunction, Denies head injury, Denies numbness, Denies seizures, Denies weakness Psychiatric: Denies anxiety, Denies depression Endocrine: Denies fatigue, Denies weight change Past Medical History Past Medical History: Heart Failure, Hyperlipidemia, Hypertension, Myocardial Infarction ([place]), Musculoskeletal Disorder, Osteoarthritis (OA) Additional Past Medical History / Comment(s): worsening SOB w/exertion, frequent fatigue, uses oxygen @2l @[facility] & sometimes during the day depending on sats., occasional stool incontinence, urinary incontinence, fell & dislocated left shoulder in February 2018-no surgery but limited mobility w/it Last Myocardial Infarction Date:: unknown History of Any Multi-Drug Resistant Organisms: None Reported Past Surgical History: Appendectomy, Heart Catheterization With Stent, Pacemaker , Tonsillectomy Past Anesthesia/Blood Transfusion Reactions: No Reported Reaction Date of Last Stent Placement:: 2007 Type of Cardiac Device: Permanent Pacemaker Device Placement Date:: 08-10-14 Past Psychological History: Anxiety, Depression Smoking Status: Never smoker Past Alcohol Use History: Occasional Additional Past Alcohol Use History / Comment(s): Patient is a lifelong nonsmoker. No marijuana or illicit drug use. No alcohol use. Patient lives at home alone but family members have been staying with her at nighttime. Past Drug Use History: None Reported - Past Family History Father Family Medical History: Cancer Additional Family Medical History / Comment(s): Lung cancer Mother Family Medical History: Coronary Artery Disease (CAD), CVA/TIA Brother(s) Additional Family Medical History / Comment(s): Patient has one brother has passed but she does not know etiology. Sister(s) Additional Family Medical History / Comment(s): Patient is a total of 3 sisters. One has history of coronary artery disease and stroke. One has passed but patient does not know etiology. One sister has no major medical problems. Son(s) Additional Family Medical History / Comment(s): Patient has 2 stents. One son has Parkinson's and one son has coronary artery disease. Medications and Allergies Home Medications Medication Instructions Recorded Confirmed Type Amiodarone [Cordarone] 200 mg PO DAILY 06/24/18 11/13/18 History Atorvastatin [Lipitor] 40 mg PO DAILY 06/24/18 11/13/18 History Clopidogrel [Plavix] 75 mg PO DAILY 06/24/18 11/13/18 History Cyanocobalamin (Vitamin B-12) 1,000 mcg PO DAILY 06/24/18 11/13/18 History [Vitamin B-12] Ergocalciferol (Vitamin D2) 50,000 unit PO Q7D 06/24/18 11/13/18 History [Vitamin D2] Furosemide [Lasix] 20 mg PO DAILY 06/24/18 11/13/18 History Gabapentin [Neurontin] 100 mg PO BID 06/24/18 11/13/18 History Losartan/Hydrochlorothiazide 1 tab PO DAILY 06/24/18 11/13/18 History [Losartan-Hctz 100-12.5 mg Tab] Multivit with Calcium,Iron,Min 1 tab PO DAILY 06/24/18 11/13/18 History [Women's Multivitamin] Sertraline [Zoloft] 100 mg PO DAILY 06/24/18 11/13/18 History amLODIPine [Norvasc] 10 mg PO DAILY 06/24/18 11/13/18 History Hydrocodone/Acetaminophen [Tamaroa 1 tab PO Q6HR PRN 11/12/18 11/13/18 History 7.5-325] Allergies Allergy/AdvReac Type Severity Reaction Status Date / Time morphine AdvReac Nausea & Verified 11/13/18 09:08 Vomiting Physical Exam Vitals: Vital Signs Pulse Resp BP Pulse Ox 11/13/18 11:02 64 18 165/92 96 11/13/18 10:45 67 18 183/97 96 11/13/18 10:30 64 18 207/107 98 11/13/18 10:15 74 17 208/122 96 11/13/18 10:05 69 18 233/118 97 11/13/18 09:55 77 16 210/111 97 11/13/18 09:50 64 18 161/86 99 11/13/18 08:24 63 18 130/80 91 L Intake and Output 11/12/18 11/13/18 11/13/18 22:59 06:59 14:59 Other: Weight 81.647 kg General appearance: cooperative, no acute distress, obese, patient is resting on stretcher - EENT Eyes: anicteric sclerae, PERRLA, normal appearance ENT: hearing grossly normal - Neck Neck: no lymphadenopathy, normal ROM, no other, no rigidity, no stridor, no thyromegaly - Respiratory Respiratory: bilateral: CTA, negative: diminished, dullness, rales, rhonchi - Cardiovascular Rhythm: regular Heart sounds: normal: S1, S2 Abnormal Heart Sounds: no systolic murmur, no diastolic murmur, no rub, no S3 Gallop - Gastrointestinal General gastrointestinal: normal bowel sounds, soft nontender to palpate - Integumentary Integumentary: no rash - Neurologic Neurologic: CNII-XII intact no sensory or motor deficit - Musculoskeletal Musculoskeletal: strength equal bilaterally. Left shoulder immobilized in a brace - Psychiatric Psychiatric: A&O x's 3, appropriate affect Results CBC & Chem 7: 11/13/18 09:15 11/13/18 09:15 Labs: Abnormal Lab Results - Last 24 Hours (Table) 11/13/18 11/13/18 Range/Units 09:15 09:15 Hct 46.7 H (34.0-46.0) % Potassium 3.4 L (3.5-5.1) mmol/L Chloride 109 H (98-107) mmol/L BUN 26 H (7-17) mg/dL Creatinine 1.05 H (0.52-1.04) mg/dL Glucose 109 H (74-99) mg/dL Total Protein 6.1 L (6.3-8.2) g/dL Thrombosis Risk Factor Assmnt - DVT/VTE Prophylaxis DVT/VTE Prophylaxis: Pharmacologic Prophylaxis ordered Assessment and Plan Plan: 1. Acute left shoulder dislocation, 2 episodes in 24 hours with reduction. Orthopedic consult. Patient has a special shoulder immobilizer that have been ordered by orthopedics. Continue IV Dilaudid, oral Tamaroa for pain, Voltaren gel added. 2. Generalized debilitation with concern for falls at home. Patient uses walker as a baseline. PT and OT evaluation. 3. Chronic heart failure, possibly diastolic due to coronary artery disease. Continue Lasix, losartan. 4. History of sick sinus syndrome status post pacemaker. 5. Coronary artery disease status post angioplasty with stent placement of the LAD May 2018. Continue Lipitor, Plavix. 6. Hyperlipidemia. 7. Recurrent depression. Continue Zoloft 100 mg daily, gabapentin 100 mg twice daily. 8. Hypertension. Continue losartan 100 mg daily, hydrochlorothiazide 12.5 mg daily, amlodipine 10 mg daily, amiodarone 200 mg daily. 9. GI prophylaxis. Pepcid. 10. DVT prophylaxis. Lovenox. Patient will be placed on the observation unit. Discharge plan: To be determined Impression and plan of care have been directed as dictated by the signing physician. Laura Murillo nurse practitioner acting as scribe for signing physician.
[2018-11-13] MEDS: amLODIPine 10 MG TAB PO SCH (15:42)
[2018-11-13] MEDS: ATORVASTATIN 40 MG TAB PO SCH (15:42)
[2018-11-13] MEDS: HYDROCHLOROTHIAZIDE 12.5 MG CAP PO SCH (15:48)
[2018-11-13] MEDS: LOSARTAN 50 MG TAB PO SCH (15:48)
[2018-11-13] MEDS: AMIODARONE 200 MG TAB PO SCH (15:48)
[2018-11-13] MEDS: SERTRALINE 100 MG TAB PO SCH (15:49)
[2018-11-13] MEDS: FUROSEMIDE 20 MG TAB PO SCH (15:49)
[2018-11-13] MEDS: CLOPIDOGREL 75 MG TAB PO SCH (15:49)
[2018-11-13] MEDS: GABAPENTIN 100 MG CAP PO SCH ×2 (15:49→18:12)
[2018-11-13] MEDS: DICLOFENAC SODIUM GEL 100 GM TUBE TOPICAL SCH ×3 (18:11→22:20)
--- NOTE | 2018-11-13 18:17 | P.CNOR ---
History of Present Illness - [facility] Consult date: 11/13/18 Consult reason: other (Recurrent left shoulder dislocations) History of present illness: Ms. Ambrocio is a pleasant 88-year-old right-hand dominant female who has had recurrent left shoulder dislocations. She states the first dislocation was the result of a fall in February 2018. She has had numerous re-dislocations in the interim. She states she simply roll over in bed last night awoke with a sharp pain. She was brought to the emergency department where x-rays were obtained which showed the shoulder was again dislocated. A closed reduction was performed. She says the pain has improved but not returned to her normal baseline yet. She was scheduled to undergo superior capsular reconstruction versus reverse total shoulder arthroplasty with Dr. Thorne but she canceled the surgery, wanting to wait until after the holidays. She lives alone but her son and [id number] live in the same neighborhood in our frequently there to assist her when needed. She does not use any assistive devices for ambulation. Past Medical History Past Medical History: Heart Failure, Hyperlipidemia, Hypertension, Myocardial Infarction ([place]), Musculoskeletal Disorder, Osteoarthritis ([place]) Additional Past Medical History / Comment(s): worsening SOB w/exertion, frequent fatigue, uses oxygen @2l @[facility] & sometimes during the day depending on sats., occasional stool incontinence, urinary incontinence, fell & dislocated left shoulder in February 2018-no surgery but limited mobility w/it Last Myocardial Infarction Date:: unknown History of Any Multi-Drug Resistant Organisms: None Reported Past Surgical History: Appendectomy, Heart Catheterization With Stent, Pacemaker , Tonsillectomy Additional Past Surgical History / Comment(s): PCI/stents with last stent placed 06/26/18, pacemaker placed in 2008 and battery recently tested, colonoscopy-normal, bilateral cataract removals Past Anesthesia/Blood Transfusion Reactions: No Reported Reaction Date of Last Stent Placement:: 2007 Type of Cardiac Device: Permanent Pacemaker Device Placement Date:: 08-10-14 Past Psychological History: Anxiety, Depression Smoking Status: Never smoker Past Alcohol Use History: Occasional Additional Past Alcohol Use History / Comment(s): Patient is a lifelong nonsmoker. No marijuana or illicit drug use. No alcohol use. Patient lives at home alone but family members have been staying with her at nighttime. Past Drug Use History: None Reported - Past Family History Father Family Medical History: Cancer Additional Family Medical History / Comment(s): Lung cancer Mother Family Medical History: Coronary Artery Disease (CAD), CVA/TIA Brother(s) Additional Family Medical History / Comment(s): Patient has one brother has passed but she does not know etiology. Sister(s) Additional Family Medical History / Comment(s): Patient is a total of 3 sisters. One has history of coronary artery disease and stroke. One has passed but patient does not know etiology. One sister has no major medical problems. Son(s) Additional Family Medical History / Comment(s): Patient has 2 stents. One son has Parkinson's and one son has coronary artery disease. Medications and Allergies Home Medications Medication Instructions Recorded Confirmed Type Amiodarone [Cordarone] 200 mg PO DAILY 06/24/18 11/13/18 History Atorvastatin [Lipitor] 40 mg PO DAILY 06/24/18 11/13/18 History Clopidogrel [Plavix] 75 mg PO DAILY 06/24/18 11/13/18 History Cyanocobalamin (Vitamin B-12) 1,000 mcg PO DAILY 06/24/18 11/13/18 History [Vitamin B-12] Ergocalciferol (Vitamin D2) 50,000 unit PO Q7D 06/24/18 11/13/18 History [Vitamin D2] Furosemide [Lasix] 20 mg PO DAILY 06/24/18 11/13/18 History Gabapentin [Neurontin] 100 mg PO BID 06/24/18 11/13/18 History Losartan/Hydrochlorothiazide 1 tab PO DAILY 06/24/18 11/13/18 History [Losartan-Hctz 100-12.5 mg Tab] Multivit with Calcium,Iron,Min 1 tab PO DAILY 06/24/18 11/13/18 History [Women's Multivitamin] Sertraline [Zoloft] 100 mg PO DAILY 06/24/18 11/13/18 History amLODIPine [Norvasc] 10 mg PO DAILY 06/24/18 11/13/18 History Hydrocodone/Acetaminophen [[place] 1 tab PO Q6HR PRN 11/12/18 11/13/18 History 7.5-325] Allergies Allergy/AdvReac Type Severity Reaction Status Date / Time morphine AdvReac Nausea & Verified 11/13/18 09:08 Vomiting Physical Examination Examination of the left shoulder reveals no gross visible or palpable bony deformity. The humeral head is palpable beneath the acromion and minimally tender to palpation. Limited gentle passive internal and external rotation in neutral abduction reveals a smooth articulation and minimal discomfort. Limited passive abduction and circumduction demonstrates moderate generalized laxity and crepitus but no appreciable subluxation or redislocation. The shoulder does not appear to perch or sublux with anterior and posterior drawer testing. Intact light touch sensation throughout the axillary and distal radial , median, and ulnar nerve distributions without focal deficit. Intact gross motor function to wrist and digital flexion and extension. Results X-rays of the left shoulder from today reveal an anterior inferior glenohumeral dislocation without appreciable fracture. 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 Repeat postreduction x-ray shows the humeral head well aligned with the glenoid and no evidence of subluxation. 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 Ambrocio in detail. Based on her exam today and the number of previous dislocations, I feel that she will ultimately require surgical intervention to achieve definitive stabilization of the shoulder. For interim protection, I recommended leaving the abduction pillow off the sling and applying a swath. This should remain in place at all times except for showering and dressing. When it is removed, the shoulder must remain at rest at her side. She must avoid active elevation and especially external rotation. I recommended an OT evaluation to provide education and teaching on how best to manage activities of daily living with the above restrictions. Questions were invited and answered. She expressed understanding and agreement with the proposed plan. Once the OT evaluation has been completed and she is deemed medically stable, she may be discharged home. She may follow up outpatient with Dr. Thorne to discuss the surgical plan. Thank you for allowing me to participate in the care of this patient. Jason Chowdary D.O. [facility]
[2018-11-13] MEDS: IPRATROPIUM-ALBUTEROL 3 ML NEB INHALATION SCH (19:17)
[2018-11-13] MEDS: BUDESONIDE 1 MG/2 ML NEBU INHALATION SCH (19:17)
[2018-11-14] MEDS: BUDESONIDE 1 MG/2 ML NEBU INHALATION SCH ×2 (07:39→19:54)
[2018-11-14] MEDS: IPRATROPIUM-ALBUTEROL 3 ML NEB INHALATION SCH ×3 (07:39→19:54)
[2018-11-14] MEDS ORDERED: FUROSEMIDE 10 MG/ML 2 ML VIAL IV STA (08:04)
[2018-11-14] MEDS ORDERED: methylPREDNISolone SOD SUCCI 125 MG/2 ML VIAL IV STA (08:05)
--- NOTE | 2018-11-14 08:12 | XR ---
EXAMINATION TYPE: XR chest 1V DATE OF EXAM: 11/14/2018 COMPARISON: 07/04/2018 HISTORY: Congestive heart failure. Wheezing. TECHNIQUE: Single frontal view of the chest is obtained. FINDINGS: There are 3 nodular densities within the right midlung and lower lung. Additionally calcif ied right upper lung medially granuloma and right hilar benign mediastinal granulomas are seen. Upper thoracic mediastinal widening is similar to the prior of 07/04/2018. Retrocardiac airspace disease pa rtially obscures the left hemidiaphragm. No cephalization is noted. Cardiomediastinal silhouette is u pper limits of normal in size with dual lead left-sided cardiac device. Osseous structures are grossl y intact. IMPRESSION: 1. Retrocardiac airspace disease partially obscuring the left hemidiaphragm may represent atelectasis or developing pneumonia. 2. Multiple right peripheral lung nodules could relate to granulomas however are incompletely charact erized and should be followed up with nonemergent chest CT. Benign right upper lobe and right mediast inal granulomas are also noted. 3. Mediastinal widening from probable thoracic aortic aneurysm is similar to 07/04/2018.
[2018-11-14 09:28] LABS: HCT 43.4 % (34.0-46.0); MCH 30.5 pg (25.0-35.0); MCHC 32.2 g/dL (31.0-37.0); MCV 94.6 fL (80.0-100.0); Mean Platelet Volume 7.1; Platelet Count 184 k/uL (150-450); RBC 4.58 m/uL (3.80-5.40); RDW 13.7 % (11.5-15.5); WBC 8.9 k/uL (3.8-10.6)
[2018-11-14 09:35] LABS: Albumin 3.6 g/dL (3.5-5.0); Calcium 8.9 mg/dL (8.4-10.2); Potassium 3.1 mmol/L (3.5-5.1); Total Bilirubin 1.4 mg/dL (0.2-1.3)
[2018-11-14 11:46] LABS: Glucose,Whole Blood 140 mg/dL (75-99)
[2018-11-14] MEDS: methylPREDNISolone SOD SUCCI 125 MG/2 ML VIAL IV SCH ×3 (12:13→23:26)
[2018-11-14] MEDS: SODIUM CHLORIDE 0.9% 1,000 ML IV SCH (12:13)
[2018-11-14] MEDS: PIPERACILLIN-TAZOBACTAM 3.375 GM in SODIUM CHLORIDE 0.9% 100 ML IVPB SCH ×3 (12:14→23:27)
[2018-11-14] MEDS ORDERED: IV FLUID CONTINUATION 1,000 ML IV ONE (14:45)
[2018-11-14] MEDS ORDERED: LIDOCAINE 1% INJ 10MG/ML (20 ML MDV) ONE (14:45)
[2018-11-14] MEDS ORDERED: KETAMINE 10 MG/ML 20 ML VIAL ONE (14:45)
[2018-11-14] MEDS ORDERED: PROPOFOL 10 MG/ML 20 ML VIAL IV ONE (14:45)
[2018-11-14] MEDS ORDERED: LIDOCAINE 2% INJ 20 MG/ML INTRATRACH ONE (15:02)
--- NOTE | 2018-11-14 15:19 | P.PN ---
Subjective Progress Note Date: 11/14/18 This is an 88-year-old female patient of Dr. 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 According to patient she had a fall in February 2018 but since then has significant pain in her left shoulder and had multiple dislocations and follows with Dr. Calix. She last saw him in August was put into a brace for 8 weeks. She has had 2 dislocations in the past 24 hours and came into the ER yesterday had reduction done went home and returned after the second dislocation. She is now being placed in the observation unit and consult with orthopedics. She has been started on Dilaudid along with [place] and Voltaren gel added for pain control. Patient's initial blood pressure was 130/80 and subsequently 233/118, pulse ox 97% on 2 L, heart rate running in the 60s and 70s , afebrile. White count normal at 6.9, hemoglobin 15.0, BUN 26 and creatinine 1.05. 11/14: Patient developed shortness of breath this morning and A-Team was called. X-ray showed retrocardiac airspace disease partially obstructing the left hemidiaphragm may represent atelectasis or developing pneumonia. Multiple right. Peripheral lung nodules may relate to granulomas. Mediastinal widening from probable thoracic aortic aneurysm similar to 2017. A shunt is found to be wheezing and states that when she was eating she started coughing has had trouble ever since. She states she was eating eggs and sausage at the time. She also states she has had problems at home prior to admission with difficulty swallowing food. Consult added for Dr. Castaneda for emergent bronchoscopy and consult for Dr. Harden. Speech therapy consult added, Solu-Medrol 60 mg IV every 6 hours, DuoNeb treatments and Pulmicort continued. Zosyn added for gram- negative coverage. Patient made nothing by mouth until cleared by Dr. Castaneda. Review of Systems All systems: negative Constitutional: Denies chills, Denies fever, Denies poor appetite, Denies weight loss Eyes: denies blurred vision, denies pain Ears, nose, mouth and throat: Denies dysphagia, Denies headache, Denies hoarseness, Denies sore throat, Denies vertigo Cardiovascular: Denies chest pain, Denies edema, Denies leg edema, Denies shortness of breath, Denies syncope Respiratory: Reports cough, Denies cough with sputum, reports dyspnea, Denies excessive sputum, Denies hemoptysis, Denies home oxygen Gastrointestinal: Denies abdominal pain, Denies diarrhea, Denies loss of appetite, Denies nausea, Denies vomiting Genitourinary: Denies dysuria, Denies hematuria, Denies urgency, Denies urinary frequency Musculoskeletal: Denies frequent falls, Denies gait dysfunction, Denies muscle weakness, Denies myalgias Musculoskeletal: left: shoulder pain Integumentary: Denies pruritus, Denies rash, Denies wounds Neurological: Denies aphasia, Denies change in mentation, Denies change in speech, Denies confusion, Denies gait dysfunction, Denies head injury, Denies numbness, Denies seizures, Denies weakness Psychiatric: Denies anxiety, Denies depression Endocrine: Denies fatigue, Denies weight change Objective - Vital Signs Vital signs: Vital Signs Temp 98.5 F 11/14/18 07:00 Pulse 77 11/14/18 08:29 Resp 24 11/14/18 08:29 BP 126/70 11/14/18 08:29 Pulse Ox 93 L 11/14/18 08:29 Intake & Output 11/13/18 11/14/18 11/14/18 18:59 06:59 18:59 Intake Total 318 Balance 318 Weight 81.647 kg Intake: Oral 318 Other: Voiding Method Diaper Diaper # Voids 1 - Exam General appearance: cooperative, in mild to moderate respiratory acute distress , obese - EENT Eyes: anicteric sclerae, PERRLA, normal appearance ENT: hearing grossly normal - Neck Neck: no lymphadenopathy, normal ROM, no other, no rigidity, no stridor, no thyromegaly - Respiratory Respiratory: bilateral: mild to moderate accessory muscle usage, wheezing bilaterally negative: diminished, dullness, rales, rhonchi - Cardiovascular Rhythm: regular Heart sounds: normal: S1, S2 Abnormal Heart Sounds: no systolic murmur, no diastolic murmur, no rub, no S3 Gallop - Gastrointestinal General gastrointestinal: normal bowel sounds, soft nontender to palpate - Integumentary Integumentary: no rash - Neurologic Neurologic: CNII-XII intact no sensory or motor deficit - Musculoskeletal Musculoskeletal: strength equal bilaterally. Left shoulder immobilized in a brace - Psychiatric Psychiatric: A&O x's 3, appropriate affect - Labs CBC & Chem 7: 11/14/18 08:21 11/14/18 08:21 Labs: Abnormal Lab Results - Last 24 Hours (Table) 11/13/18 11/13/18 Range/Units 09:15 09:15 Hct 46.7 H (34.0-46.0) % Potassium 3.4 L (3.5-5.1) mmol/L Chloride 109 H (98-107) mmol/L BUN 26 H (7-17) mg/dL Creatinine 1.05 H (0.52-1.04) mg/dL Glucose 109 H (74-99) mg/dL Total Protein 6.1 L (6.3-8.2) g/dL Assessment and Plan Plan: 1. Acute left shoulder dislocation, 2 episodes in 24 hours with reduction. Orthopedic consult. Patient has a special shoulder immobilizer that have been ordered by orthopedics. Continue IV Dilaudid, oral Gardner for pain, Voltaren gel added. 2. Acute aspiration pneumonia. Consult with Dr. Castaneda for emergent bronchoscopy , Dr. Harden, speech therapy consult. Patient made nothing by mouth. 3. Chronic heart failure, possibly diastolic due to coronary artery disease. Continue Lasix, losartan. 4. History of sick sinus syndrome status post pacemaker. 5. Coronary artery disease status post angioplasty with stent placement of the LAD May 2018. Continue Lipitor, Plavix. 6. Hyperlipidemia. 7. Recurrent depression. Continue Zoloft 100 mg daily, gabapentin 100 mg twice daily. 8. Hypertension. Continue losartan 100 mg daily, hydrochlorothiazide 12.5 mg daily, amlodipine 10 mg daily, amiodarone 200 mg daily. 9. GI prophylaxis. Pepcid. 10. DVT prophylaxis. Lovenox. Patient admitted to the hospital for a minimum of 2 night stay. Discharge plan: To be determined. PT, OT Impression and plan of care have been directed as dictated by the signing physician. Laura Murillo nurse practitioner acting as scribe for signing physician.
--- NOTE | 2018-11-14 15:39 | P.CNPUL ---
History of Present Illness Consult date: 11/14/18 Reason for consult: dyspnea, cough, hypoxemia, pneumonia, obstructive sleep apnea Chief complaint: Cough shortness of breath episode of aspiration History of present illness: 88-year-old female who was seen evaluated examined, this patient has been admitted into the hospital with problems associated with left shoulder pain, patient has been lately developing problems associated with swallowing dysfunction has the intermittent choking with food which is been going on for several weeks to month lately as the [id number] describes symptoms and episode have been more frequent, this morning patient had an episode in which while she was eating breakfast choked on food started coughing about with particles of food I was asked to evaluate this patient and consider for bronchoscopy. 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 According to patient she had a fall in February 2018 but since then has significant pain in her left shoulder and had multiple dislocations and follows with Dr. Calix. She last saw him in August was put into a brace for 8 weeks. She has had 2 dislocations in the past 24 hours and came into the ER yesterday had reduction done went home and returned after the second dislocation. She is now being placed in the observation unit and consult with orthopedics. She has been started on Dilaudid along with Mart and Voltaren gel added for pain control. Patient's initial blood pressure was 130/80 and subsequently 233/118, pulse ox 97% on 2 L, heart rate running in the 60s and 70s , afebrile. White count normal at 6.9, hemoglobin 15.0, BUN 26 and creatinine 1.05. Review of Systems All systems: negative Past Medical History Past Medical History: Heart Failure, Hyperlipidemia, Hypertension, Myocardial Infarction ([place]), Musculoskeletal Disorder, Osteoarthritis (OA) Additional Past Medical History / Comment(s): worsening SOB w/exertion, frequent fatigue, uses oxygen @2l @[facility] & sometimes during the day depending on sats., occasional stool incontinence, urinary incontinence, fell & dislocated left shoulder in February 2018-no surgery but limited mobility w/it Last Myocardial Infarction Date:: unknown History of Any Multi-Drug Resistant Organisms: None Reported Past Surgical History: Appendectomy, Heart Catheterization With Stent, Pacemaker , Tonsillectomy Additional Past Surgical History / Comment(s): PCI/stents with last stent placed 06/26/18, pacemaker placed in 2008 and battery recently tested, colonoscopy-normal, bilateral cataract removals Past Anesthesia/Blood Transfusion Reactions: No Reported Reaction Date of Last Stent Placement:: 2007 Type of Cardiac Device: Permanent Pacemaker Device Placement Date:: 08-10-14 Past Psychological History: Anxiety, Depression Smoking Status: Never smoker Past Alcohol Use History: Occasional Additional Past Alcohol Use History / Comment(s): Patient is a lifelong nonsmoker. No marijuana or illicit drug use. No alcohol use. Patient lives at home alone but family members have been staying with her at nighttime. Past Drug Use History: None Reported - Past Family History Father Family Medical History: Cancer Additional Family Medical History / Comment(s): Lung cancer Mother Family Medical History: Coronary Artery Disease (CAD), CVA/TIA Brother(s) Additional Family Medical History / Comment(s): Patient has one brother has passed but she does not know etiology. Sister(s) Additional Family Medical History / Comment(s): Patient is a total of 3 sisters. One has history of coronary artery disease and stroke. One has passed but patient does not know etiology. One sister has no major medical problems. Son(s) Additional Family Medical History / Comment(s): Patient has 2 stents. One son has Parkinson's and one son has coronary artery disease. Medications and Allergies Home Medications Medication Instructions Recorded Confirmed Type Amiodarone [Cordarone] 200 mg PO DAILY 06/24/18 11/13/18 History Atorvastatin [Lipitor] 40 mg PO DAILY 06/24/18 11/13/18 History Clopidogrel [Plavix] 75 mg PO DAILY 06/24/18 11/13/18 History Cyanocobalamin (Vitamin B-12) 1,000 mcg PO DAILY 06/24/18 11/13/18 History [Vitamin B-12] Ergocalciferol (Vitamin D2) 50,000 unit PO Q7D 06/24/18 11/13/18 History [Vitamin D2] Furosemide [Lasix] 20 mg PO DAILY 06/24/18 11/13/18 History Gabapentin [Neurontin] 100 mg PO BID 06/24/18 11/13/18 History Losartan/Hydrochlorothiazide 1 tab PO DAILY 06/24/18 11/13/18 History [Losartan-Hctz 100-12.5 mg Tab] Multivit with Calcium,Iron,Min 1 tab PO DAILY 06/24/18 11/13/18 History [Women's Multivitamin] Sertraline [Zoloft] 100 mg PO DAILY 06/24/18 11/13/18 History amLODIPine [Norvasc] 10 mg PO DAILY 06/24/18 11/13/18 History Hydrocodone/Acetaminophen [Mart 1 tab PO Q6HR PRN 11/12/18 11/13/18 History 7.5-325] Allergies Allergy/AdvReac Type Severity Reaction Status Date / Time morphine AdvReac Nausea & Verified 11/13/18 09:08 Vomiting Physical Exam Vitals: Vital Signs Temp Pulse Pulse Resp BP BP Pulse Ox 11/14/18 11:47 71 11/14/18 11:41 71 22 11/14/18 08:29 77 24 126/70 93 L 11/14/18 07:55 70 24 11/14/18 07:39 69 24 96 11/14/18 07:00 98.5 F 72 17 102/63 93 L 11/14/18 03:53 16 11/14/18 00:30 98.7 F 74 16 110/71 92 L 11/13/18 19:31 64 11/13/18 19:17 64 11/13/18 19:00 98.6 F 70 16 126/70 98 11/13/18 17:11 98 F 62 16 175/92 95 11/13/18 16:20 16 11/13/18 15:37 62 Intake and Output 11/14/18 11/14/18 11/14/18 06:59 14:59 22:59 Intake Total 100 200 Balance 100 200 Intake: IV 200 Oral 100 Other: Voiding Method Diaper - Exam General appearance: cooperative, in mild to moderate respiratory acute distress , obese - EENT Eyes: anicteric sclerae, PERRLA, normal appearance ENT: hearing grossly normal - Neck Neck: no lymphadenopathy, normal ROM, no other, no rigidity, no stridor, no thyromegaly - Respiratory Respiratory: bilateral: mild to moderate accessory muscle usage, wheezing bilaterally negative: diminished, dullness, rales, rhonchi - Cardiovascular Rhythm: regular Heart sounds: normal: S1, S2 Abnormal Heart Sounds: no systolic murmur, no diastolic murmur, no rub, no S3 Gallop - Gastrointestinal General gastrointestinal: normal bowel sounds, soft nontender to palpate - Integumentary Integumentary: no rash - Neurologic Neurologic: CNII-XII intact no sensory or motor deficit - Musculoskeletal Musculoskeletal: strength equal bilaterally. Left shoulder immobilized in a brace - Psychiatric Psychiatric: A&O x's 3, appropriate affect Results - Laboratory Findings CBC and BMP: 11/14/18 08:21 11/14/18 08:21 PT/INR, D-dimer PT 10.2 sec (9.0-12.0) 11/13/18 09:15 INR 0.9 (<1.2) 11/13/18 09:15 D-Dimer 1.10 mg/L FEU (<0.60) H 11/14/18 08:21 Abnormal lab findings: Abnormal Labs 11/13/18 11/13/18 11/14/18 09:15 09:15 08:21 Hct 46.7 H D-Dimer Potassium 3.4 L 3.1 L Chloride 109 H BUN 26 H 26 H Creatinine 1.05 H 1.43 H Glucose 109 H 128 H POC Glucose (mg/dL) Total Bilirubin 1.4 H Total Protein 6.1 L 6.0 L 11/14/18 11/14/18 08:21 11:34 Hct D-Dimer 1.10 H Potassium Chloride BUN Creatinine Glucose POC Glucose (mg/dL) 140 H Total Bilirubin Total Protein - Diagnostic Findings Chest x-ray: report reviewed, image reviewed (Finding as noted above) Assessment and Plan Assessment: Aspiration pneumonia Chronic developing progressive dysphagia Acute hypoxic respiratory failure Severe morbid obesity likely sleep disorder breathing and sleep apnea to be valid further outpatient setting Dislocated shoulder, acute on the left side Chronic congestive heart failure likely diastolic heart failure Coronary artery disease Dyslipidemia hypertension hypertensive cardiovascular disease Plan: Broad-spectrum antibiotics IV steroids Breathing treatment To do swallow evaluation patient will likely need a barium swallow We'll proceed with bronchoscopy is planned Time with Patient: Greater than 30
--- NOTE | 2018-11-14 15:42 | P.PCN ---
Date of Procedure: 11/14/18 Preoperative Diagnosis: Aspiration pneumonia Postoperative Diagnosis: As above Procedure(s) Performed: #1 bronchoscopy, number to bronchial lavage of the right upper lobe as well as left lower lobe Anesthesia: MAC Surgeon: Jakub Castaneda Estimated Blood Loss (ml): 0 Condition: stable Disposition: floor Indications for Procedure: As above Operative Findings: As below Description of Procedure: Patient prepared and draped in a usual fashion informed consent obtained from the patient, fiberoptic bronchoscope was passed to the right nares, the nasopharyngeal area as well as laryngeal area was passed there were no significant erythematous edema in the vocal cord area was noted however the vocal cords were very tightly approximated giving a spasmodic appearance able to pass the vocal cords into the trachea but due to significant desaturation had to come out patient receive additional anesthesia with propofol but anesthetic services subsequently again has a fiberoptic bronchoscope through the right nares the vocal cords appears to be more relaxed this time tip of the scope was passed from the vocal cords into trachea diffuse right heme edema of tracheobronchial tree was noted extensive amount of mucus plugging was seen into the area tip of the scope was has no the right side BAL was performed from the right upper lobe as well as right lower lobe thick mucous plugs were removed followed by tip of the scope was taken to the left side lavage was performed from the left lower lobe as well patient tolerated the procedure very well except transient episode of desaturation requiring short-term bagging the fiberoptic bronchoscope was passed patient saturation and vitals are stable patient is now being transferred to patient care area
[2018-11-14] MEDS: CYANOCOBALAMIN 500 MCG TAB PO SCH (16:34)
[2018-11-14] MEDS: AMIODARONE 200 MG TAB PO SCH (16:34)
[2018-11-14] MEDS: CLOPIDOGREL 75 MG TAB PO SCH (16:34)
[2018-11-14] MEDS: amLODIPine 10 MG TAB PO SCH (16:34)
[2018-11-14] MEDS: DICLOFENAC SODIUM GEL 100 GM TUBE TOPICAL SCH ×4 (16:34→20:52)
[2018-11-14] MEDS: ATORVASTATIN 40 MG TAB PO SCH (16:34)
[2018-11-14] MEDS: GABAPENTIN 100 MG CAP PO SCH ×2 (16:35→20:12)
[2018-11-14] MEDS: LOSARTAN 50 MG TAB PO SCH (16:35)
[2018-11-14] MEDS: FUROSEMIDE 20 MG TAB PO SCH (16:35)
[2018-11-14] MEDS: HYDROCHLOROTHIAZIDE 12.5 MG CAP PO SCH (16:35)
[2018-11-14] MEDS: MULTIVITAMINS, THERA 1 EACH TAB PO SCH (16:36)
[2018-11-14] MEDS: INSULIN ASPART (NovoLOG) 100 UNIT/ML VIAL SQ SCH ×3 (16:36→20:52)
[2018-11-14] MEDS: SERTRALINE 100 MG TAB PO SCH (16:36)
[2018-11-14 17:22] LABS: Glucose,Whole Blood 170 mg/dL (75-99)
[2018-11-14 20:51] LABS: Glucose,Whole Blood 132 mg/dL (75-99)
[2018-11-14 22:23] LABS: Hemoglobin A1C 5.9 % (4.0-6.0)
--- NOTE | 2018-11-14 22:35 | P.CONS ---
History of Present Illness - Reason for Consult Consult date: 11/14/18 Suspicion of aspiration, oropharyngeal dysphagia Requesting physician: aTnja Samson - Chief Complaint Shoulder pain/ dislocation - History of Present Illness The patient is an 88-year-old female with a medical history significant for congestive heart failure, hyperlipidemia, hypertension, prior myocardial infarction, sick sinus syndrome status post pacemaker placement and osteoarthritis who comes in due to recurrent dislocations of her left shoulder. The patient has had issues with her shoulder since dislocation in February 2018. And presented to the hospital for evaluation after 2 dislocations in the past 24 hours. During the patient's day was concern for aspiration as the patient had an episode of difficulty breathing/hypoxia and was seen by the pulmonology service who took the patient for bronchoscopy. The patient and her family reports that the patient has had difficulty swallowing for a long while. The patient feels this is secondary to eating too fast. She will have frequent episodes of coughing and hypoxia during eating. Concern after the patient's bronchoscopy was for aspiration and the patient was told to remain nothing by mouth this further evaluation was performed. She denies any other acute complaints at this time. Review of Systems REVIEW OF SYSTEMS: CONSTITUTIONAL: Denies any fevers, chills, weight change or fatigue. CARDIOVASCULAR: Denies any chest pain, palpitations high or low blood pressures RESPIRATORY: Denies any shortness of breath, hemoptysis or cough. GENITOURINARY: No dysuria or hematuria. MUSCULOSKELETAL: No weakness reported. SKIN: Denies any new rashes or lesions, jaundice or pallor. PSYCHIATRIC: Denies any depression or anxiety. NEUROLOGY: Denies headache, denies any new focal deficits. EARS/NOSE/THROAT: No recent hearing change, congestion, nasal discharge or sore throat. EYES: No pain in eyes, discharge or change in vision. GASTROINTESTINAL: As per HPI. Past Medical History Past Medical History: Heart Failure, Hyperlipidemia, Hypertension, Myocardial Infarction ([place]), Musculoskeletal Disorder, Osteoarthritis (OA) Additional Past Medical History / Comment(s): worsening SOB w/exertion, frequent fatigue, uses oxygen @2l @[facility] & sometimes during the day depending on sats., occasional stool incontinence, urinary incontinence, fell & dislocated left shoulder in February 2018-no surgery but limited mobility w/it Last Myocardial Infarction Date:: unknown History of Any Multi-Drug Resistant Organisms: None Reported Past Surgical History: Appendectomy, Heart Catheterization With Stent, Pacemaker , Tonsillectomy Additional Past Surgical History / Comment(s): PCI/stents with last stent placed 06/26/18, pacemaker placed in 2008 and battery recently tested, colonoscopy-normal, bilateral cataract removals Past Anesthesia/Blood Transfusion Reactions: No Reported Reaction Date of Last Stent Placement:: 2007 Type of Cardiac Device: Permanent Pacemaker Device Placement Date:: 08-10-14 Past Psychological History: Anxiety, Depression Smoking Status: Never smoker Past Alcohol Use History: Occasional Additional Past Alcohol Use History / Comment(s): Patient is a lifelong nonsmoker. No marijuana or illicit drug use. No alcohol use. Patient lives at home alone but family members have been staying with her at nighttime. Past Drug Use History: None Reported - Past Family History Father Family Medical History: Cancer Additional Family Medical History / Comment(s): Lung cancer Mother Family Medical History: Coronary Artery Disease (CAD), CVA/TIA Brother(s) Additional Family Medical History / Comment(s): Patient has one brother has passed but she does not know etiology. Sister(s) Additional Family Medical History / Comment(s): Patient is a total of 3 sisters. One has history of coronary artery disease and stroke. One has passed but patient does not know etiology. One sister has no major medical problems. Son(s) Additional Family Medical History / Comment(s): Patient has 2 stents. One son has Parkinson's and one son has coronary artery disease. Medications and Allergies Home Medications Medication Instructions Recorded Confirmed Type Amiodarone [Cordarone] 200 mg PO DAILY 06/24/18 11/13/18 History Atorvastatin [Lipitor] 40 mg PO DAILY 06/24/18 11/13/18 History Clopidogrel [Plavix] 75 mg PO DAILY 06/24/18 11/13/18 History Cyanocobalamin (Vitamin B-12) 1,000 mcg PO DAILY 06/24/18 11/13/18 History [Vitamin B-12] Ergocalciferol (Vitamin D2) 50,000 unit PO Q7D 06/24/18 11/13/18 History [Vitamin D2] Furosemide [Lasix] 20 mg PO DAILY 06/24/18 11/13/18 History Gabapentin [Neurontin] 100 mg PO BID 06/24/18 11/13/18 History Losartan/Hydrochlorothiazide 1 tab PO DAILY 06/24/18 11/13/18 History [Losartan-Hctz 100-12.5 mg Tab] Multivit with Calcium,Iron,Min 1 tab PO DAILY 06/24/18 11/13/18 History [Women's Multivitamin] Sertraline [Zoloft] 100 mg PO DAILY 06/24/18 11/13/18 History amLODIPine [Norvasc] 10 mg PO DAILY 06/24/18 11/13/18 History Hydrocodone/Acetaminophen [[place] 1 tab PO Q6HR PRN 11/12/18 11/13/18 History 7.5-325] Allergies Allergy/AdvReac Type Severity Reaction Status Date / Time morphine AdvReac Nausea & Verified 11/13/18 09:08 Vomiting Physical Exam Vitals: Vital Signs Temp Pulse Pulse Resp BP BP Pulse Ox 11/14/18 20:07 87 11/14/18 19:57 84 94 L 11/14/18 19:21 17 11/14/18 19:00 98.6 F 88 20 136/78 91 L 11/14/18 15:00 98.4 F 84 17 119/64 89 L 11/14/18 11:47 71 11/14/18 11:41 71 22 11/14/18 08:29 77 24 126/70 93 L 11/14/18 08:00 24 11/14/18 07:55 70 24 11/14/18 07:39 69 24 96 11/14/18 07:00 98.5 F 72 17 102/63 93 L 11/14/18 03:53 16 11/14/18 00:30 98.7 F 74 16 110/71 92 L Intake and Output 11/14/18 11/14/18 11/14/18 06:59 14:59 22:59 Intake Total 100 200 Balance 100 200 Intake: IV 200 Oral 100 Other: Voiding Method Diaper Diaper # Voids 1 On physical examination, patient appears comfortable in no apparent distress. HEAD: Normocephalic, atraumatic. EYES: No scleral icterus. No conjunctival injection. MOUTH: No lesions, tongue midline. NECK: Trachea midline, no gross abnormalities. CHEST: Clear to auscultation with no wheezing or rhonchi appreciated. HEART: Regular rate and rhythm. ABDOMEN: Soft, obese. Bowel sounds are positive. No organomegaly. No guarding or rigidity. EXTREMITIES: No pedal edema. SKIN: No rashes, no jaundice. NEUROLOGIC: Alert and oriented x3. No focal deficits. Results CBC & Chem 7: 11/14/18 08:21 11/14/18 08:21 Labs: Abnormal Lab Results - Last 24 Hours (Table) 11/14/18 11/14/18 11/14/18 Range/Units 08:21 08:21 11:34 D-Dimer 1.10 H (<0.60) mg/L FEU Potassium 3.1 L (3.5-5.1) mmol/L BUN 26 H (7-17) mg/dL Creatinine 1.43 H (0.52-1.04) mg/dL Glucose 128 H (74-99) mg/dL POC Glucose (mg/dL) 140 H (75-99) mg/dL Total Bilirubin 1.4 H (0.2-1.3) mg/dL Total Protein 6.0 L (6.3-8.2) g/dL 11/14/18 11/14/18 Range/Units 17:08 20:49 D-Dimer (<0.60) mg/L FEU Potassium (3.5-5.1) mmol/L BUN (7-17) mg/dL Creatinine (0.52-1.04) mg/dL Glucose (74-99) mg/dL POC Glucose (mg/dL) 170 H 132 H (75-99) mg/dL Total Bilirubin (0.2-1.3) mg/dL Total Protein (6.3-8.2) g/dL Assessment and Plan (1) Oropharyngeal dysphagia Narrative/Plan: Patient presenting due to recurrent dislocations of her shoulder. Episode of suspected aspiration. Extensive conversation with the patient and her family and suspicion is for recurrent episodes of aspiration at home. Current Visit: Yes Status: Acute Code(s): R13.12 - DYSPHAGIA, OROPHARYNGEAL PHASE SNOMED Code(s): 53471440 Plan: Supportive care Nothing by mouth Extensive discussion with the patient and her family and at this time recommendations are for the patient to remain nothing by mouth until further evaluation with speech language pathology and with video swallow evaluation If the patient is not amenable, can consider a modified diet with nectar thick liquids and chopped food, however at this time the patient and her son and [id number] have been told that if she is to proceed with diet. There is a high risk of further aspiration and that this couldn't subsequently lead to further hypoxemia, a cardiovascular event and even No plans for endoscopic evaluation at this time until patient has further evaluation with video swallow as symptoms seem to be predominantly oropharyngeal in nature Thank you for allowing us to participate in the care of the patient, we will continue to follow
[2018-11-15] MEDS: methylPREDNISolone SOD SUCCI 125 MG/2 ML VIAL IV SCH ×3 (05:33→20:51)
[2018-11-15 07:26] LABS: Glucose,Whole Blood 139 mg/dL (75-99)
[2018-11-15] MEDS: INSULIN ASPART (NovoLOG) 100 UNIT/ML VIAL SQ SCH ×4 (07:37→20:41)
[2018-11-15] MEDS: PIPERACILLIN-TAZOBACTAM 3.375 GM in SODIUM CHLORIDE 0.9% 100 ML IVPB SCH ×3 (07:48→23:52)
[2018-11-15] MEDS: BUDESONIDE 1 MG/2 ML NEBU INHALATION SCH ×2 (08:59→20:22)
[2018-11-15] MEDS: IPRATROPIUM-ALBUTEROL 3 ML NEB INHALATION SCH ×3 (09:00→20:22)
[2018-11-15] MEDS: AMIODARONE 200 MG TAB PO SCH (09:58)
[2018-11-15] MEDS: CLOPIDOGREL 75 MG TAB PO SCH (09:58)
[2018-11-15] MEDS: amLODIPine 10 MG TAB PO SCH (09:58)
[2018-11-15] MEDS: ATORVASTATIN 40 MG TAB PO SCH (09:58)
[2018-11-15] MEDS: CYANOCOBALAMIN 500 MCG TAB PO SCH (09:59)
[2018-11-15] MEDS: HYDROCHLOROTHIAZIDE 12.5 MG CAP PO SCH (09:59)
[2018-11-15] MEDS: GABAPENTIN 100 MG CAP PO SCH ×2 (09:59→20:42)
[2018-11-15] MEDS: FUROSEMIDE 20 MG TAB PO SCH (09:59)
[2018-11-15] MEDS: LOSARTAN 50 MG TAB PO SCH (09:59)
[2018-11-15] MEDS: SERTRALINE 100 MG TAB PO SCH (09:59)
[2018-11-15 12:00] LABS: Glucose,Whole Blood 149 mg/dL (75-99)
--- NOTE | 2018-11-15 12:33 | P.PN ---
Progress Note - Text Progress Note Date: 11/15/18 Orthopedics Progress Note S: Events of last 24h reviewed. Pt states she's breathing easier and shoulder pain is well controlled. Denies new issues or concerns related to shoulder. O: Sling in place. Appropriate TTP around shoulder. Glenoid palpable in normal anatomic position below the acromion. Apprehension but minimal pain with limited PROM. A: Recurrent left shoulder dislocations Suspected aspiration s/p BAL P: Continue sling at all times. No active/passive motion of shoulder. Ok to use hand with arm at the side. Apply swatch once obtained. Will fit with temporary version if unavailable. Jason Chowdary D.O. [facility]
[2018-11-15] MEDS: DICLOFENAC SODIUM GEL 100 GM TUBE TOPICAL SCH ×4 (14:10→20:42)
[2018-11-15] MEDS: SODIUM CHLORIDE 0.9% 1,000 ML IV SCH (14:11)
[2018-11-15] MEDS: MULTIVITAMINS, THERA 1 EACH TAB PO SCH (14:11)
[2018-11-15] MEDS ORDERED: DOCUSATE 100 MG CAP PO PRN (14:16)
--- NOTE | 2018-11-15 14:16 | P.PN ---
Subjective Progress Note Date: 11/15/18 88-year-old female who was seen evaluated examined, this patient has been admitted into the hospital with problems associated with left shoulder pain, patient has been lately developing problems associated with swallowing dysfunction has the intermittent choking with food which is been going on for several weeks to month lately as the [id number] describes symptoms and episode have been more frequent, this morning patient had an episode in which while she was eating breakfast choked on food started coughing about with particles of food I was asked to evaluate this patient and consider for bronchoscopy. 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 According to patient she had a fall in February 2018 but since then has significant pain in her left shoulder and had multiple dislocations and follows with Dr. Calix. She last saw him in August was put into a brace for 8 weeks. She has had 2 dislocations in the past 24 hours and came into the ER yesterday had reduction done went home and returned after the second dislocation. She is now being placed in the observation unit and consult with orthopedics. She has been started on Dilaudid along with Shokan and Voltaren gel added for pain control. Patient's initial blood pressure was 130/80 and subsequently 233/118, pulse ox 97% on 2 L, heart rate running in the 60s and 70s , afebrile. White count normal at 6.9, hemoglobin 15.0, BUN 26 and creatinine 1.05. 11/15/2018: Patient seen and examined covering for Dr. Castaneda. The patient underwent bronchoscopy for aspiration pneumonia. The patient is complaining of some abdominal pain and acid reflux. She states she has not had a bowel movement several days and like a stool softener. She states she feels like her breathing is a little bit better today. She is currently on 3 L nasal cannula with O2 saturation 94%. She has been afebrile. Objective - Vital Signs Vital signs: Vital Signs Temp 98.5 F 11/15/18 07:00 Pulse 81 11/15/18 13:20 Resp 20 11/15/18 07:00 BP 146/74 11/15/18 07:00 Pulse Ox 94 L 11/15/18 09:02 Intake & Output 11/14/18 11/15/18 11/15/18 18:59 06:59 18:59 Intake Total 200 240 Output Total 400 Balance 200 -160 Weight 81.647 kg Intake: IV 200 Intake, IV Titration 240 Amount Sodium Chloride 0.9% 1, 240 000 ml @ 20 mls/hr IV . Q24H JORDYN Rx#:[id number] Oral 0 Output: Urine 400 Other: Voiding Method Diaper Diaper # Voids 1 4 - Exam Gen.: Patient is alert and oriented 3, no acute distress, obese Cardiovascular: Regular rate and rhythm, S1/S2 Lungs: Coarse breath sounds bilaterally Abdomen: Soft nontender nondistended positive bowel sounds Extremities: Trace edema - Labs CBC & Chem 7: 11/14/18 08:21 11/14/18 08:21 Labs: Abnormal Lab Results - Last 24 Hours (Table) 11/14/18 11/14/18 11/14/18 Range/Units 15:15 17:08 20:49 POC Glucose (mg/dL) 170 H 132 H (75-99) mg/dL Viral Test See Below H 11/15/18 11/15/18 Range/Units 07:15 11:45 POC Glucose (mg/dL) 139 H 149 H (75-99) mg/dL Viral Test Microbiology - Last 24 Hours (Table) 11/14/18 15:15 Gram Stain - Preliminary Bronchoalviolar Lavage - Left Bronchial Washings Culture - Preliminary 11/14/18 15:15 Acid Fast Bacilli Smear - Final Bronchoalviolar Lavage - Left Acid Fast Bacilli Culture - Preliminary 11/14/18 15:15 Fungal Culture - Preliminary Bronchoalviolar Lavage - Left Assessment and Plan Assessment: Aspiration pneumonia, s/p bronchoscopy with removal of multiple mucous plugs Chronic developing progressive dysphagia Acute hypoxic respiratory failure Severe morbid obesity likely sleep disorder breathing and sleep apnea to be valid further outpatient setting Dislocated shoulder, acute on the left side Chronic congestive heart failure likely diastolic heart failure Coronary artery disease Dyslipidemia hypertension hypertensive cardiovascular disease Plan: Broad-spectrum antibiotics IV steroids - taper Breathing treatment To do swallow evaluation patient will likely need a barium swallow Aspiration precautions Stool softener per patient request Outpatient evaluation for possible JOSR Patient seen and examined covering for Dr. Castaneda
--- NOTE | 2018-11-15 14:39 | P.PN ---
Subjective Progress Note Date: 11/15/18 Principal diagnosis: Patient is slightly confused complaining of being hungry and asking if she can eat. Patient is restless and seems to be anxious As above Objective - Vital Signs Vital signs: Vital Signs Temp 98.5 F 11/15/18 07:00 Pulse 81 11/15/18 13:20 Resp 20 11/15/18 07:00 BP 146/74 11/15/18 07:00 Pulse Ox 94 L 11/15/18 09:02 Intake & Output 11/14/18 11/15/18 11/15/18 18:59 06:59 18:59 Intake Total 200 240 Output Total 400 Balance 200 -160 Weight 81.647 kg Intake: IV 200 Intake, IV Titration 240 Amount Sodium Chloride 0.9% 1, 240 000 ml @ 20 mls/hr IV . Q24H JORDYN Rx#:[id number] Oral 0 Output: Urine 400 Other: Voiding Method Diaper Diaper # Voids 1 4 - Exam Lungs coarse breathing sounds bilaterally with rhonchi Heart normal S1-S2 Abdomen soft no tenderness upon suppository ( Left upper extremity with sling in place Skin no new rash - Labs CBC & Chem 7: 11/14/18 08:21 11/14/18 08:21 Labs: Abnormal Lab Results - Last 24 Hours (Table) 11/14/18 11/14/18 11/14/18 Range/Units 15:15 17:08 20:49 POC Glucose (mg/dL) 170 H 132 H (75-99) mg/dL Viral Test See Below H 11/15/18 11/15/18 Range/Units 07:15 11:45 POC Glucose (mg/dL) 139 H 149 H (75-99) mg/dL Viral Test Microbiology - Last 24 Hours (Table) 11/14/18 15:15 Gram Stain - Preliminary Bronchoalviolar Lavage - Left Bronchial Washings Culture - Preliminary 11/14/18 15:15 Acid Fast Bacilli Smear - Final Bronchoalviolar Lavage - Left Acid Fast Bacilli Culture - Preliminary 11/14/18 15:15 Fungal Culture - Preliminary Bronchoalviolar Lavage - Left Assessment and Plan Assessment: 1. Dislocated left shoulder. 2. Dysphagia with aspiration with aspiration pneumonia status post bronchoscopy with removal of multiple mucous plugs. 3. Dementia. 4. Respiratory failure with hypoxia. 5. Coronary artery disease. X. Hypertension. 7. Hyperlipidemia. Plan discussed with nursing staff where multiple attempts for NG tube placement was unsuccessful and I would like to consult general surgery for NG tube insertion as modified barium swallow 1 be done before Saturday and I would like to stop Jevity at 20 mL/h increased for goal of 50 mL/h start water flushes with tube feeding and continue her home medication as ordered. We'll repeat blood work in the morning and continue monitoring vital signs closely keep patient's nothing by mouth at this point
[2018-11-15 16:37] LABS: Glucose,Whole Blood 122 mg/dL (75-99)
--- NOTE | 2018-11-15 17:17 | P.GSCN ---
History of Present Illness Consult date: 11/15/18 History of present illness: CHIEF COMPLAINT: Aspiration HISTORY OF PRESENT ILLNESS: The patient is a 88-year-old female initially admitted for shoulder dislocation recurrent who during her hospitalization had presented with aspiration pneumonia less than 2 days ago She had been nothing by mouth as a result. Patient reports difficulty with placement of a nasogastric tube which was requested per her admitting attending for nutrition. Gastroenterology consultation is noted. Separately, patient is pending swallow study evaluation. She is currently on IV fluids. General surgery is consulted for NG tube placement PAST MEDICAL HISTORY: See list. PAST SURGICAL HISTORY: See list. MEDICATIONS: See list. ALLERGIES: See list. SOCIAL HISTORY: No illicit drug use FAMILY HISTORY: No reports of Crohn's disease or inflammatory bowel disease REVIEW OF ORGAN SYSTEMS: CONSTITUTIONAL: No fevers or chills HEENT: No troubles with vision or hearing. Reports of dysphagia. ENDOCRINE: No reports of thyroid disorders. No diabetes. CARDIOVASCULAR: No heart attack. No chest pain. Has cardiac arrhythmia including hypertensive heart disease. Past history of myocardial infarction. History of heart failure RESPIRATORY: Has dyspnea on exertion. History of aspiration pneumonia. GASTROINTESTINAL: No reports of recent blood in stools. NEURO: No reports of stroke or seizure disorders. PSYCH: No suicidal ideation. Has depression. Has anxiety. HEMATOLOGIC: No easy bruising or bleeding LYMPHATIC: The patient denies any lumps and bumps around the neck. GENITOURINARY: Denies any blood in urine or increased urinary frequency. MUSCULOSKELETAL: Has back pain, stiffness or joint arthritis. SKIN: No skin cancer or rash. PHYSICAL EXAM: VITAL SIGNS: Reviewed GENERAL: Well-developed in no acute distress. HEENT: No sclera icterus. Extraocular movements grossly intact. Moist buccal mucosa. Head is atraumatic, normocephalic. Hears conversational speech. No nasal drainage. NECK: Supple without lymphadenopathy. CHEST: Non-labored respirations and equal bilateral excursions. CARDIOVASCULAR: Regular rate with regular rhythm. Palpable 2+ radial pulses. ABDOMEN: Soft. Nondistended. No peritonitis. Nontender. MUSCULOSKELETAL: No clubbing, cyanosis or edema. Has left shoulder brace. NEUROLOGIC: No focal or lateralizing signs. Cranial nerves II through XII grossly intact. PSYCH: Appropriate affect. Alert and oriented to person, place and time. SKIN: Well perfused. Good skin turgor. LABS: Reviewed ASSESSMENT: 1. Aspiration pneumonia 2. History of dysphagia to tablets 3. Morbid obesity excess calories PLAN: 1. For aspiration pneumonia, NG tube contraindicated with underlying dysphagia. Do not put an NG tube. 2. Agree with swallow study and esophagram. 3. Alternatively, for evidence of aspiration pneumonia and/or dysphagia, endoscopic placement of gastrostomy tube also described to patient and family. 4. In the interim, patient may have mouth swabs for dry mouth. 5. Additionally, gastrostomy tube placement may be done by GI team or surgical team. Thank you for this kind consultation. Past Medical History Past Medical History: Heart Failure, Hyperlipidemia, Hypertension, Myocardial Infarction (CT), Musculoskeletal Disorder, Osteoarthritis (OA) Additional Past Medical History / Comment(s): worsening SOB w/exertion, frequent fatigue, uses oxygen @2l @[facility] & sometimes during the day depending on sats., occasional stool incontinence, urinary incontinence, fell & dislocated left shoulder in February 2018-no surgery but limited mobility w/it Last Myocardial Infarction Date:: unknown History of Any Multi-Drug Resistant Organisms: None Reported Past Surgical History: Appendectomy, Heart Catheterization With Stent, Pacemaker , Tonsillectomy Additional Past Surgical History / Comment(s): PCI/stents with last stent placed 06/26/18, pacemaker placed in 2008 and battery recently tested, colonoscopy-normal, bilateral cataract removals Past Anesthesia/Blood Transfusion Reactions: No Reported Reaction Date of Last Stent Placement:: 2007 Type of Cardiac Device: Permanent Pacemaker Device Placement Date:: 08-10-14 Past Psychological History: Anxiety, Depression Smoking Status: Never smoker Past Alcohol Use History: Occasional Additional Past Alcohol Use History / Comment(s): Patient is a lifelong nonsmoker. No marijuana or illicit drug use. No alcohol use. Patient lives at home alone but family members have been staying with her at nighttime. Past Drug Use History: None Reported - Past Family History Father Family Medical History: Cancer Additional Family Medical History / Comment(s): Lung cancer Mother Family Medical History: Coronary Artery Disease (CAD), CVA/TIA Brother(s) Additional Family Medical History / Comment(s): Patient has one brother has passed but she does not know etiology. Sister(s) Additional Family Medical History / Comment(s): Patient is a total of 3 sisters. One has history of coronary artery disease and stroke. One has passed but patient does not know etiology. One sister has no major medical problems. Son(s) Additional Family Medical History / Comment(s): Patient has 2 stents. One son has Parkinson's and one son has coronary artery disease. Medications and Allergies Home Medications Medication Instructions Recorded Confirmed Type Amiodarone [Cordarone] 200 mg PO DAILY 06/24/18 11/13/18 History Atorvastatin [Lipitor] 40 mg PO DAILY 06/24/18 11/13/18 History Clopidogrel [Plavix] 75 mg PO DAILY 06/24/18 11/13/18 History Cyanocobalamin (Vitamin B-12) 1,000 mcg PO DAILY 06/24/18 11/13/18 History [Vitamin B-12] Ergocalciferol (Vitamin D2) 50,000 unit PO Q7D 06/24/18 11/13/18 History [Vitamin D2] Furosemide [Lasix] 20 mg PO DAILY 06/24/18 11/13/18 History Gabapentin [Neurontin] 100 mg PO BID 06/24/18 11/13/18 History Losartan/Hydrochlorothiazide 1 tab PO DAILY 06/24/18 11/13/18 History [Losartan-Hctz 100-12.5 mg Tab] Multivit with Calcium,Iron,Min 1 tab PO DAILY 06/24/18 11/13/18 History [Women's Multivitamin] Sertraline [Zoloft] 100 mg PO DAILY 06/24/18 11/13/18 History amLODIPine [Norvasc] 10 mg PO DAILY 06/24/18 11/13/18 History Hydrocodone/Acetaminophen [[place] 1 tab PO Q6HR PRN 11/12/18 11/13/18 History 7.5-325] Allergies Allergy/AdvReac Type Severity Reaction Status Date / Time morphine AdvReac Nausea & Verified 11/13/18 09:08 Vomiting Surgical - Exam Vital Signs Pulse Resp BP Pulse Ox 63 18 130/80 91 L 11/13/18 08:24 11/13/18 08:24 11/13/18 08:24 11/13/18 08:24 Results - Labs 11/14/18 08:21 11/14/18 08:21 Abnormal Lab Results - Last 24 Hours (Table) 11/14/18 11/14/18 11/14/18 Range/Units 15:15 17:08 20:49 POC Glucose (mg/dL) 170 H 132 H (75-99) mg/dL Viral Test See Below H 11/15/18 11/15/18 11/15/18 Range/Units 07:15 11:45 16:26 POC Glucose (mg/dL) 139 H 149 H 122 H (75-99) mg/dL Viral Test Microbiology - Last 24 Hours (Table) 11/14/18 15:15 Gram Stain - Preliminary Bronchoalviolar Lavage - Left Bronchial Washings Culture - Preliminary 11/14/18 15:15 Acid Fast Bacilli Smear - Final Bronchoalviolar Lavage - Left Acid Fast Bacilli Culture - Preliminary 11/14/18 15:15 Fungal Culture - Preliminary Bronchoalviolar Lavage - Left Diabetes panel 11/14/18 Range/Units 08:30 Hemoglobin A1c 5.9 (4.0-6.0) % - Imaging Chest x-ray: report reviewed, image reviewed (Chest x-ray personally reviewed with the findings of aspiration pneumonia) Assessment and Plan (1) Morbid obesity due to excess calories Current Visit: Yes Status: Acute Code(s): E66.01 - MORBID (SEVERE) OBESITY DUE TO EXCESS CALORIES SNOMED Code(s): 220265424 (2) Adult BMI 35.0-35.9 kg/sq m Current Visit: Yes Status: Acute Code(s): Z68.35 - BODY MASS INDEX (BMI) 35.0-35.9, ADULT SNOMED Code(s): 721289996 (3) Dislocation of shoulder, left, closed Current Visit: Yes Status: Acute Code(s): S43.005A - UNSPECIFIED DISLOCATION OF LEFT SHOULDER JOINT, INIT ENCNTR SNOMED Code(s): 29106381 (4) High risk for readmission Current Visit: Yes Status: Acute Code(s): Z91.89 - OTH PERSONAL RISK FACTORS , NOT ELSEWHERE CLASSIFIED SNOMED Code(s): 579162995 (5) Oropharyngeal dysphagia Current Visit: Yes Status: Acute Code(s): R13.12 - DYSPHAGIA, OROPHARYNGEAL PHASE SNOMED Code(s): 30425514 (6) Dislocation of shoulder region Current Visit: No Status: Acute Code(s): S43.006A - UNSP DISLOCATION OF UNSPECIFIED SHOULDER JOINT, INIT ENCNTR SNOMED Code(s): 999095455
[2018-11-15 19:58] LABS: Glucose,Whole Blood 115 mg/dL (75-99)
[2018-11-16] MEDS: DICLOFENAC SODIUM GEL 100 GM TUBE TOPICAL SCH ×4 (06:57→23:14)
[2018-11-16] MEDS: amLODIPine 10 MG TAB PO SCH (06:57)
[2018-11-16] MEDS: CLOPIDOGREL 75 MG TAB PO SCH (06:57)
[2018-11-16] MEDS: AMIODARONE 200 MG TAB PO SCH (06:57)
[2018-11-16] MEDS: ATORVASTATIN 40 MG TAB PO SCH (06:57)
[2018-11-16] MEDS: CYANOCOBALAMIN 500 MCG TAB PO SCH (06:57)
[2018-11-16] MEDS: LOSARTAN 50 MG TAB PO SCH (06:58)
[2018-11-16] MEDS: MULTIVITAMINS, THERA 1 EACH TAB PO SCH (06:58)
[2018-11-16] MEDS: SERTRALINE 100 MG TAB PO SCH (06:58)
[2018-11-16] MEDS: HYDROCHLOROTHIAZIDE 12.5 MG CAP PO SCH (06:58)
[2018-11-16] MEDS: FUROSEMIDE 20 MG TAB PO SCH (06:58)
[2018-11-16] MEDS: GABAPENTIN 100 MG CAP PO SCH ×3 (06:58→23:14)
[2018-11-16 07:37] LABS: Glucose,Whole Blood 132 mg/dL (75-99)
[2018-11-16] MEDS: INSULIN ASPART (NovoLOG) 100 UNIT/ML VIAL SQ SCH ×4 (07:52→23:14)
--- NOTE | 2018-11-16 08:21 | P.PN ---
<Roula Navarro Kathe - Last Filed: 11/16/18 08:21> Subjective Progress Note Date: 11/16/18 This is an 88-year-old female who is admitted for recurrent left shoulder dislocations. Patient is status post bronchoscopy for aspiration pneumonia. Patient states that her pain in the left shoulder is well-controlled and she denies any new complaints today. Patient denies any fever/chills, numbness, weakness, tingling, abdominal pain, shortness of breath or chest pain. Objective - Vital Signs Vital signs: Vital Signs Temp 98.6 F 11/16/18 07:00 Pulse 75 11/16/18 07:00 Resp 16 11/16/18 07:00 BP 170/79 11/16/18 07:00 Pulse Ox 96 11/16/18 07:00 Intake & Output 11/15/18 11/16/18 11/16/18 18:59 06:59 18:59 Output Total 250 Balance -250 Weight 89 kg Output: Urine 250 Other: Voiding Method Diaper Diaper - Exam On exam patient is lying comfortably in bed in no acute distress. Sling is in place to the left upper extremity. There is no tenderness to palpation over the left shoulder. Patient has full range of motion of the left wrist and hand. Sensation is intact. Neurovascular status and circulatory status are intact. - Labs CBC & Chem 7: 11/14/18 08:21 11/14/18 08:21 Labs: Abnormal Lab Results - Last 24 Hours (Table) 11/14/18 11/15/18 11/15/18 Range/Units 15:15 11:45 16:26 POC Glucose (mg/dL) 149 H 122 H (75-99) mg/dL Viral Test See Below H 11/15/18 11/16/18 Range/Units 19:45 07:21 POC Glucose (mg/dL) 115 H 132 H (75-99) mg/dL Viral Test Microbiology - Last 24 Hours (Table) 11/14/18 15:15 Gram Stain - Preliminary Bronchoalviolar Lavage - Left Bronchial Washings Culture - Preliminary 11/14/18 15:15 Acid Fast Bacilli Smear - Final Bronchoalviolar Lavage - Left Acid Fast Bacilli Culture - Preliminary Assessment and Plan Assessment: Dysphagia with aspiration Aspiration pneumonia, status post bronchoscopy Dementia Respiratory failure with hypoxia Coronary artery disease Hypertension Hyperlipidemia (1) Dislocation of shoulder, left, closed Current Visit: Yes Status: Acute Code(s): S43.005A - UNSPECIFIED DISLOCATION OF LEFT SHOULDER JOINT, INIT ENCNTR SNOMED Code(s): 62325457 Plan: 1. Maintain sling to left upper extremity. 2. Patient is to keep left arm at her side and avoid active or passive range of motion of the left shoulder. 3. No surgical intervention planned. Will continue to follow. <Jason Chowdary - Last Filed: 11/16/18 12:56> Objective - Vital Signs Vital signs: Vital Signs Temp 98.6 F 11/16/18 07:00 Pulse 80 11/16/18 12:19 Resp 16 11/16/18 07:00 BP 170/79 11/16/18 07:00 Pulse Ox 96 11/16/18 07:00 Intake & Output 11/15/18 11/16/18 11/16/18 18:59 06:59 18:59 Output Total 250 Balance -250 Weight 89 kg Output: Urine 250 Other: Voiding Method Diaper Diaper Diaper - Labs CBC & Chem 7: 11/14/18 08:21 11/14/18 08:21 Labs: Abnormal Lab Results - Last 24 Hours (Table) 11/15/18 11/15/18 11/16/18 Range/Units 16:26 19:45 07:21 POC Glucose (mg/dL) 122 H 115 H 132 H (75-99) mg/dL 11/16/18 Range/Units 11:23 POC Glucose (mg/dL) 124 H (75-99) mg/dL Microbiology - Last 24 Hours (Table) 11/14/18 15:15 Gram Stain - Final Bronchoalviolar Lavage - Left Bronchial Washings Culture - Final Assessment and Plan Plan: Reviewed and agree with above. *Clarification: No immediate surgical intervention planned. This will be reevaluated by Dr. Thorne once the patient's current medical issues have been addressed and stabilized. The patient was subsequently seen and examined by myself as well. Recent events reviewed with RN. Central supply unable to locate a swath. An abdominal binder was ordered and applied to serve as a swath. This should be worn at all times along with the sling. It should only be removed for showers and daily elbow range of motion exercises (with the arm at her side). Jason Chowdary D.O. [facility]
[2018-11-16] MEDS: PIPERACILLIN-TAZOBACTAM 3.375 GM in SODIUM CHLORIDE 0.9% 100 ML IVPB SCH ×2 (08:32→16:11)
[2018-11-16] MEDS: methylPREDNISolone SOD SUCCI 125 MG/2 ML VIAL IV SCH ×2 (08:33→20:34)
[2018-11-16] MEDS: IPRATROPIUM-ALBUTEROL 3 ML NEB INHALATION SCH ×3 (08:52→19:47)
[2018-11-16] MEDS: BUDESONIDE 1 MG/2 ML NEBU INHALATION SCH ×2 (08:52→19:47)
[2018-11-16] MEDS: SODIUM CHLORIDE 0.9% 1,000 ML IV SCH (09:40)
[2018-11-16 11:44] LABS: Glucose,Whole Blood 124 mg/dL (75-99)
[2018-11-16] MEDS ORDERED: ACETAMINOPHEN IV (For NPO) 1,000 MG in EMPTY BAG 1 BAG IVPB PRN (12:00)
--- NOTE | 2018-11-16 13:58 | P.PN ---
Subjective Progress Note Date: 11/16/18 Principal diagnosis: Shoulder dislocation and dysphagia Patient continued to be slightly confused multiple attempts yesterday to place NG tube was unsuccessful general surgery evaluated the patient and recommended again's NG tube placement patient is still waiting on modified barium swallow and currently strictly nothing by mouth Objective - Vital Signs Vital signs: Vital Signs Temp 98.6 F 11/16/18 07:00 Pulse 80 11/16/18 12:19 Resp 16 11/16/18 07:00 BP 170/79 11/16/18 07:00 Pulse Ox 96 11/16/18 07:00 Intake & Output 11/15/18 11/16/18 11/16/18 18:59 06:59 18:59 Output Total 250 Balance -250 Weight 89 kg Output: Urine 250 Other: Voiding Method Diaper Diaper Diaper - Exam Lungs coarse breathing sounds bilaterally with rhonchi Heart normal S1-S2 Abdomen soft no tenderness upon suppository ( Left upper extremity with sling in place Skin no new rash - Labs CBC & Chem 7: 11/14/18 08:21 11/14/18 08:21 Labs: Abnormal Lab Results - Last 24 Hours (Table) 11/15/18 11/15/18 11/16/18 Range/Units 16:26 19:45 07:21 POC Glucose (mg/dL) 122 H 115 H 132 H (75-99) mg/dL 11/16/18 Range/Units 11:23 POC Glucose (mg/dL) 124 H (75-99) mg/dL Microbiology - Last 24 Hours (Table) 11/14/18 15:15 Gram Stain - Final Bronchoalviolar Lavage - Left Bronchial Washings Culture - Final Assessment and Plan Assessment: 1. Dislocated left shoulder. 2. Dysphagia with aspiration with aspiration pneumonia status post bronchoscopy with removal of multiple mucous plugs. 3. Dementia. 4. Respiratory failure with hypoxia. 5. Coronary artery disease. X. Hypertension. 7. Hyperlipidemia. General surgery recommended against NG tube placement, patient currently nothing by mouth, continue gentle hydration with normal saline at 75 mL/h repeat electrolytes in the morning and do modified barium swallow KATHYA. Patient may benefit from PEG tube placement in case she fail modified barium swallow
--- NOTE | 2018-11-16 16:57 | P.PN ---
Subjective Progress Note Date: 11/16/18 88-year-old female who was seen evaluated examined, this patient has been admitted into the hospital with problems associated with left shoulder pain, patient has been lately developing problems associated with swallowing dysfunction has the intermittent choking with food which is been going on for several weeks to month lately as the qrohcayh-no-xiz describes symptoms and episode have been more frequent, this morning patient had an episode in which while she was eating breakfast choked on food started coughing about with particles of food I was asked to evaluate this patient and consider for bronchoscopy. 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 According to patient she had a fall in February 2018 but since then has significant pain in her left shoulder and had multiple dislocations and follows with Dr. Calix. She last saw him in August was put into a brace for 8 weeks. She has had 2 dislocations in the past 24 hours and came into the ER yesterday had reduction done went home and returned after the second dislocation. She is now being placed in the observation unit and consult with orthopedics. She has been started on Dilaudid along with [place] and Voltaren gel added for pain control. Patient's initial blood pressure was 130/80 and subsequently 233/118, pulse ox 97% on 2 L, heart rate running in the 60s and 70s , afebrile. White count normal at 6.9, hemoglobin 15.0, BUN 26 and creatinine 1.05. 11/15/2018: Patient seen and examined covering for Dr. Castaneda. The patient underwent bronchoscopy for aspiration pneumonia. The patient is complaining of some abdominal pain and acid reflux. She states she has not had a bowel movement several days and like a stool softener. She states she feels like her breathing is a little bit better today. She is currently on 3 L nasal cannula with O2 saturation 94%. She has been afebrile. 11/16/2018: Patient seen and examined. Patient states her breathing is okay. She is currently on room air with O2 saturation 93%. She does state that she coughs on occasion. Patient is being evaluated by surgical team for possible gastric tube. Objective - Vital Signs Vital signs: Vital Signs Temp 97.8 F 11/16/18 14:22 Pulse 79 11/16/18 14:22 Resp 16 11/16/18 14:59 BP 133/72 11/16/18 14:22 Pulse Ox 93 L 11/16/18 14:22 Intake & Output 11/15/18 11/16/18 11/16/18 18:59 06:59 18:59 Output Total 250 Balance -250 Weight 89 kg Output: Urine 250 Other: Voiding Method Diaper Diaper Diaper - Exam Gen.: Patient is alert and oriented 3, no acute distress, obese Cardiovascular: Regular rate and rhythm, S1/S2 Lungs: Coarse breath sounds bilaterally Abdomen: Soft nontender nondistended positive bowel sounds Extremities: Trace edema - Labs CBC & Chem 7: 11/14/18 08:21 11/14/18 08:21 Labs: Abnormal Lab Results - Last 24 Hours (Table) 11/15/18 11/16/18 11/16/18 Range/Units 19:45 07:21 11:23 POC Glucose (mg/dL) 115 H 132 H 124 H (75-99) mg/dL Microbiology - Last 24 Hours (Table) 11/14/18 15:15 Gram Stain - Final Bronchoalviolar Lavage - Left Bronchial Washings Culture - Final Assessment and Plan Assessment: Aspiration pneumonia, s/p bronchoscopy with removal of multiple mucous plugs Chronic developing progressive dysphagia Acute hypoxic respiratory failure Severe morbid obesity likely sleep disorder breathing and sleep apnea to be valid further outpatient setting Dislocated shoulder, acute on the left side Chronic congestive heart failure likely diastolic heart failure Coronary artery disease Dyslipidemia hypertension hypertensive cardiovascular disease Plan: Broad-spectrum antibiotics IV steroids - taper Breathing treatment To do swallow evaluation patient will likely need a barium swallow Aspiration precautions Stool softener per patient request Outpatient evaluation for possible JOSR Possible plan for gastric tube per surgery Repeat chest x-ray in the morning Patient seen and examined covering for Dr. Castaneda
[2018-11-16 17:16] LABS: Glucose,Whole Blood 131 mg/dL (75-99)
[2018-11-16 19:43] LABS: Glucose,Whole Blood 132 mg/dL (75-99)
[2018-11-17] MEDS: PIPERACILLIN-TAZOBACTAM 3.375 GM in SODIUM CHLORIDE 0.9% 100 ML IVPB SCH ×3 (00:52→18:02)
[2018-11-17] MEDS: BUDESONIDE 1 MG/2 ML NEBU INHALATION SCH ×2 (07:48→19:41)
[2018-11-17] MEDS: IPRATROPIUM-ALBUTEROL 3 ML NEB INHALATION SCH ×3 (07:48→19:41)
--- NOTE | 2018-11-17 07:50 | XR ---
EXAMINATION TYPE: XR chest 1V portable DATE OF EXAM: 11/17/2018 Comparison: 11/14/2018 Clinical History: 88-year-old male female follow-up pneumonia Findings: Heart is borderline enlarged. Similar widening of the superior mediastinum from prior exam. Patchy le ft basilar opacity persists. Couple areas of high density nodularity peripheral right lower lung like ly correspond to calcified granulomas especially given calcified right hilar lymph nodes. Left anteri or chest wall pacemaker generator with right atrial and right ventricular leads. Some underpenetratio n due to the large patient body habitus. Suspect a full-thickness rotator cuff tear on the right and secondary arthropathy. Impression: 1. Continued patchy left basilar atelectasis and/or infiltrate. 2. Findings suggest prior granulomatous disease. Calcified granulomas should be confirmed in the danisha pheral right lower lung on a nonemergent follow-up CT chest. 3. Underlying tortuosity versus ectasia or aneurysm of the thoracic aorta can also be assessed at gabriel t time.
[2018-11-17 08:00] LABS: Glucose,Whole Blood 117 mg/dL (75-99)
--- NOTE | 2018-11-17 08:02 | P.PN ---
Subjective Progress Note Date: 11/16/18 She is doing well. She reports dysphagia with solid foods only and tolerate liquids. Recommend esophogram. May have ice chips and popsicles in the interim Objective - Vital Signs Vital signs: Vital Signs Temp 98.2 F 11/16/18 19:00 Pulse 84 11/16/18 20:00 Resp 16 11/16/18 20:00 BP 112/91 11/16/18 19:00 Pulse Ox 96 11/16/18 19:47 Intake & Output 11/16/18 11/16/18 11/17/18 06:59 18:59 06:59 Output Total 250 Balance -250 Output: Urine 250 Other: Voiding Method Diaper Diaper - Labs CBC & Chem 7: 11/14/18 08:21 11/14/18 08:21 Labs: Abnormal Lab Results - Last 24 Hours (Table) 11/16/18 11/16/18 11/16/18 Range/Units 07:21 11:23 17:00 POC Glucose (mg/dL) 132 H 124 H 131 H (75-99) mg/dL 11/16/18 Range/Units 19:30 POC Glucose (mg/dL) 132 H (75-99) mg/dL Microbiology - Last 24 Hours (Table) 11/14/18 15:15 Gram Stain - Final Bronchoalviolar Lavage - Left Bronchial Washings Culture - Final Assessment and Plan (1) Morbid obesity due to excess calories Current Visit: Yes Status: Acute Code(s): E66.01 - MORBID (SEVERE) OBESITY DUE TO EXCESS CALORIES SNOMED Code(s): 172893688 (2) Adult BMI 35.0-35.9 kg/sq m Current Visit: Yes Status: Acute Code(s): Z68.35 - BODY MASS INDEX (BMI) 35.0-35.9, ADULT SNOMED Code(s): 563088490 (3) Dislocation of shoulder, left, closed Current Visit: Yes Status: Acute Code(s): S43.005A - UNSPECIFIED DISLOCATION OF LEFT SHOULDER JOINT, INIT ENCNTR SNOMED Code(s): 37689218 (4) High risk for readmission Current Visit: Yes Status: Acute Code(s): Z91.89 - OTH PERSONAL RISK FACTORS , NOT ELSEWHERE CLASSIFIED SNOMED Code(s): 624732538 (5) Oropharyngeal dysphagia Current Visit: Yes Status: Acute Code(s): R13.12 - DYSPHAGIA, OROPHARYNGEAL PHASE SNOMED Code(s): 23245337 (6) Dislocation of shoulder region Current Visit: No Status: Acute Code(s): S43.006A - UNSP DISLOCATION OF UNSPECIFIED SHOULDER JOINT, INIT ENCNTR SNOMED Code(s): 182659536
[2018-11-17] MEDS: SERTRALINE 100 MG TAB PO SCH ×2 (08:45→13:47)
[2018-11-17] MEDS: LOSARTAN 50 MG TAB PO SCH ×2 (08:45→13:44)
[2018-11-17] MEDS: CLOPIDOGREL 75 MG TAB PO SCH ×2 (08:46→13:47)
[2018-11-17] MEDS: amLODIPine 10 MG TAB PO SCH ×2 (08:46→13:42)
[2018-11-17] MEDS: FUROSEMIDE 20 MG TAB PO SCH ×2 (08:46→13:42)
[2018-11-17] MEDS: ATORVASTATIN 40 MG TAB PO SCH ×2 (08:46→13:47)
[2018-11-17] MEDS: AMIODARONE 200 MG TAB PO SCH ×2 (08:46→13:43)
[2018-11-17] MEDS: CYANOCOBALAMIN 500 MCG TAB PO SCH ×2 (08:46→13:47)
[2018-11-17] MEDS: GABAPENTIN 100 MG CAP PO SCH ×2 (08:47→21:58)
[2018-11-17] MEDS: HYDROCHLOROTHIAZIDE 12.5 MG CAP PO SCH ×2 (08:47→13:42)
[2018-11-17] MEDS: methylPREDNISolone SOD SUCCI 125 MG/2 ML VIAL IV SCH (10:16)
--- NOTE | 2018-11-17 10:18 | P.PN ---
Subjective Progress Note Date: 11/17/18 Principal diagnosis: Dysphagia Esophagram ordered result pending. Tolerating coffee this morning without dysphagia symptoms. Objective - Vital Signs Vital signs: Vital Signs Temp 98.2 F 11/17/18 07:00 Pulse 72 11/17/18 08:06 Resp 16 11/17/18 07:00 BP 151/90 11/17/18 07:00 Pulse Ox 96 11/17/18 07:51 Intake & Output 11/16/18 11/17/18 11/17/18 18:59 06:59 18:59 Intake Total 1300 Balance 1300 Intake: Intake, IV Titration 700 Amount Piperacillin-Tazobactam 3 100 .375 gm In Sodium Chloride 0.9% 100 ml @ 25 mls/hr IVPB Q8HR [facility] Rx# :[id number] Sodium Chloride 0.9% 1, 600 000 ml @ 75 mls/hr IV . [id number] [facility] Rx#:[id number] Oral 600 Other: Voiding Method Diaper Diaper - Exam General appearance: The patient is alert, oriented, in no acute distress. HET: Head is normocephalic and atraumatic. Pupils are equal and reactive. Oropharynx is clear without lesions. Neck: Supple without lymphadenopathy. Trachea midline. Heart: S1 S2. Regular rate and rhythm. Lungs: No crackles or wheezes are heard. Abdomen: Soft, nontender, nondistended with bowel sounds. No peritoneal signs. No palpable organomegaly or masses. Extremities: Normal skin color and turgor. No cyanosis, rash, ulceration, clubbing, or edema. Radial and pedal pulses are 2/4 bilaterally. Neurological: No focal deficits. Strength and sensation are grossly intact. - Labs CBC & Chem 7: 11/14/18 08:21 11/14/18 08:21 Labs: Abnormal Lab Results - Last 24 Hours (Table) 11/16/18 11/16/18 11/16/18 Range/Units 11:23 17:00 19:30 POC Glucose (mg/dL) 124 H 131 H 132 H (75-99) mg/dL 11/17/18 Range/Units 07:36 POC Glucose (mg/dL) 117 H (75-99) mg/dL Microbiology - Last 24 Hours (Table) 11/14/18 15:15 Gram Stain - Final Bronchoalviolar Lavage - Left Bronchial Washings Culture - Final Assessment and Plan (1) Oropharyngeal dysphagia Current Visit: Yes Status: Acute Code(s): R13.12 - DYSPHAGIA, OROPHARYNGEAL PHASE SNOMED Code(s): 81965584 (2) Aspiration pneumonia Current Visit: Yes Status: Acute Code(s): J69.0 - PNEUMONITIS DUE TO INHALATION OF FOOD AND VOMIT SNOMED Code(s): 958171334 Plan: 1. Esophagram to review. Continue light diet/liquis as tolerated. EGD contingent on clinical course. 2. GI prophylaxis. Assessment and plan a care discussed with Dr. Harden
--- NOTE | 2018-11-17 10:52 | FL ---
MODIFIED SWALLOW / DEGLUTITION STUDY DATE OF EXAM: 11/17/2018 CLINICAL HISTORY: 88-year-old female with choking episode, rule out aspiration Dysphagia. TECHNIQUE: Deglutition study is performed utilizing thin liquid barium, honey and nectar thick liqui d barium, barium thick applesauce, and barium coated cracker. Total fluoroscopy time: 1 minute 26 seconds. Total images: None. Real-time fluoroscopy support was provided to speech pathology. COMPARISON: None. FINDINGS: The oral and pharyngeal phases show satisfactory initiation and propagation with all modalities teste d. Normal mastication is seen with solid modalities tested. There is no evidence of penetration or aspiration with any modality tested. No significant pharyngeal residue was appreciated. IMPRESSION: Normal deglutition study. Please refer to speech therapist notes for further details if necessary.
--- NOTE | 2018-11-17 10:56 | FL ---
EXAMINATION: Cervical and Thoracic Esophagram DATE OF EXAM: 11/17/2018 CLINICAL INDICATION: 88-year-old female with choking episode status post bronchoscopy, referred for e sophagram COMPARISON: None Total Fluoroscopy Time: 1 minute 3 seconds. Total images: 17 FINDINGS: The swallowing mechanism is normal and hypopharyngeal anatomy is preserved. Initial swallow shows stasis in the upper thoracic esophagus. There is diffuse undulating contour thr oughout the thoracic esophagus and some relative narrowing just above the GE junction. No discrete mu cosal lesion is seen or sizable hiatal hernia. Due to patient condition, BELCHER/prone imaging was not performed. This causes some limitation in assessm ent of esophageal motility. IMPRESSION: 1. Some stasis in the upper thoracic esophagus and diffuse undulating contour suggesting either spasm or presbyesophagus. 2. Limited assessment of esophageal motility due to patient condition precluding performance of BELCHER/p nona imaging. 3. Relative narrowing distal esophagus just above the GE junction could represent a mild stricture. D irect visualization as indicated. No discrete mucosal lesion seen.
[2018-11-17 11:26] LABS: Glucose,Whole Blood 139 mg/dL (75-99)
--- NOTE | 2018-11-17 12:56 | P.PN ---
Subjective Progress Note Date: 11/17/18 88-year-old female who was seen evaluated examined, this patient has been admitted into the hospital with problems associated with left shoulder pain, patient has been lately developing problems associated with swallowing dysfunction has the intermittent choking with food which is been going on for several weeks to month lately as the qqqfhllc-cj-lfx describes symptoms and episode have been more frequent, this morning patient had an episode in which while she was eating breakfast choked on food started coughing about with particles of food I was asked to evaluate this patient and consider for bronchoscopy. 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 According to patient she had a fall in February 2018 but since then has significant pain in her left shoulder and had multiple dislocations and follows with Dr. Calix. She last saw him in August was put into a brace for 8 weeks. She has had 2 dislocations in the past 24 hours and came into the ER yesterday had reduction done went home and returned after the second dislocation. She is now being placed in the observation unit and consult with orthopedics. She has been started on Dilaudid along with [place] and Voltaren gel added for pain control. Patient's initial blood pressure was 130/80 and subsequently 233/118, pulse ox 97% on 2 L, heart rate running in the 60s and 70s , afebrile. White count normal at 6.9, hemoglobin 15.0, BUN 26 and creatinine 1.05. 11/15/2018: Patient seen and examined covering for Dr. Castaneda. The patient underwent bronchoscopy for aspiration pneumonia. The patient is complaining of some abdominal pain and acid reflux. She states she has not had a bowel movement several days and like a stool softener. She states she feels like her breathing is a little bit better today. She is currently on 3 L nasal cannula with O2 saturation 94%. She has been afebrile. 11/16/2018: Patient seen and examined. Patient states her breathing is okay. She is currently on room air with O2 saturation 93%. She does state that she coughs on occasion. Patient is being evaluated by surgical team for possible gastric tube. 11/17/2018: Patient seen and examined for follow-up. The patient is undergoing workup for dysphagia. She states her breathing is getting better. She does have an occasional cough. She states she has not been choking on her food. She denies fevers and chills. Objective - Vital Signs Vital signs: Vital Signs Temp 98.2 F 11/17/18 07:00 Pulse 72 11/17/18 08:06 Resp 18 11/17/18 08:00 BP 151/90 11/17/18 07:00 Pulse Ox 96 11/17/18 07:51 Intake & Output 11/16/18 11/17/18 11/17/18 18:59 06:59 18:59 Intake Total 1300 Balance 1300 Intake: Intake, IV Titration 700 Amount Piperacillin-Tazobactam 3 100 .375 gm In Sodium Chloride 0.9% 100 ml @ 25 mls/hr IVPB Q8HR [facility] Rx# :[id number] Sodium Chloride 0.9% 1, 600 000 ml @ 75 mls/hr IV . [id number] [facility] Rx#:[id number] Oral 600 Other: Voiding Method Diaper Diaper Diaper Incontinent - Exam Gen.: Patient is alert and oriented 3, no acute distress, obese Cardiovascular: Regular rate and rhythm, S1/S2 Lungs: Coarse breath sounds bilaterally Abdomen: Soft nontender nondistended positive bowel sounds Extremities: Trace edema - Labs CBC & Chem 7: 11/14/18 08:21 11/14/18 08:21 Labs: Abnormal Lab Results - Last 24 Hours (Table) 11/16/18 11/16/18 11/17/18 Range/Units 17:00 19:30 07:36 POC Glucose (mg/dL) 131 H 132 H 117 H (75-99) mg/dL 11/17/18 Range/Units 11:10 POC Glucose (mg/dL) 139 H (75-99) mg/dL Microbiology - Last 24 Hours (Table) 11/14/18 15:15 Gram Stain - Final Bronchoalviolar Lavage - Left Bronchial Washings Culture - Final Assessment and Plan Assessment: Aspiration pneumonia, s/p bronchoscopy with removal of multiple mucous plugs Chronic developing progressive dysphagia Acute hypoxic respiratory failure Severe morbid obesity likely sleep disorder breathing and sleep apnea to be valid further outpatient setting Dislocated shoulder, acute on the left side Chronic congestive heart failure likely diastolic heart failure Coronary artery disease Dyslipidemia hypertension hypertensive cardiovascular disease Plan: Broad-spectrum antibiotics IV steroids - taper Breathing treatment Aspiration precautions Outpatient evaluation for possible JOSR Patient seen and examined covering for Dr. Castaneda
--- NOTE | 2018-11-17 13:24 | P.PN ---
Subjective Progress Note Date: 11/17/18 CHIEF COMPLAINT: Dysphagia HISTORY OF PRESENT ILLNESS: Patient examined at the bedside. She states she is tolerating liquids well. Denies abdominal pain. Denies nausea or vomiting. PHYSICAL EXAM: VITAL SIGNS: Currently stable. GENERAL: Well-developed in no acute distress. HEENT: No sclera icterus. Extraocular movements grossly intact. Moist buccal mucosa. Head is atraumatic, normocephalic. Hears conversational speech. No nasal drainage. NECK: Supple without lymphadenopathy. CHEST: Non-labored respirations and equal bilateral excursions. CARDIOVASCULAR: Regular rate with regular rhythm. Palpable 2+ radial pulses. ABDOMEN: Soft. Nondistended. Nontender MUSCULOSKELETAL: No clubbing, cyanosis or edema. NEUROLOGIC: No focal or lateralizing signs. Cranial nerves II through XII grossly intact. PSYCH: Appropriate affect. Alert and oriented to person, place and time. SKIN: Well perfused. Good skin turgor. ASSESSMENT: 1. Dysphagia PLAN: Patient is stable from a surgical standpoint. No surgical intervention advised. GI is also following patient. We will sign off. Please reconsult if needed. Nurse practitioner note has been reviewed by physician. Signing provider agrees with the documented findings, assessment, and plan of care. Objective - Vital Signs Vital signs: Vital Signs Temp 98.2 F 11/17/18 07:00 Pulse 72 11/17/18 08:06 Resp 18 11/17/18 08:00 BP 151/90 11/17/18 07:00 Pulse Ox 96 11/17/18 07:51 Intake & Output 11/16/18 11/17/18 11/17/18 18:59 06:59 18:59 Intake Total 1300 Balance 1300 Intake: Intake, IV Titration 700 Amount Piperacillin-Tazobactam 3 100 .375 gm In Sodium Chloride 0.9% 100 ml @ 25 mls/hr IVPB Q8HR [facility] Rx# :[id number] Sodium Chloride 0.9% 1, 600 000 ml @ 75 mls/hr IV . [id number] [facility] Rx#:[id number] Oral 600 Other: Voiding Method Diaper Diaper Diaper Incontinent - Labs CBC & Chem 7: 11/14/18 08:21 11/14/18 08:21 Labs: Abnormal Lab Results - Last 24 Hours (Table) 11/16/18 11/16/18 11/17/18 Range/Units 17:00 19:30 07:36 POC Glucose (mg/dL) 131 H 132 H 117 H (75-99) mg/dL 11/17/18 Range/Units 11:10 POC Glucose (mg/dL) 139 H (75-99) mg/dL Microbiology - Last 24 Hours (Table) 11/14/18 15:15 Gram Stain - Final Bronchoalviolar Lavage - Left Bronchial Washings Culture - Final
[2018-11-17] MEDS: INSULIN ASPART (NovoLOG) 100 UNIT/ML VIAL SQ SCH ×4 (13:39→21:58)
--- NOTE | 2018-11-17 13:46 | P.PN ---
Subjective Progress Note Date: 11/17/18 This is an 88-year-old female patient of Dr. 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 According to patient she had a fall in February 2018 but since then has significant pain in her left shoulder and had multiple dislocations and follows with Dr. Calix. She last saw him in August was put into a brace for 8 weeks. She has had 2 dislocations in the past 24 hours and came into the ER yesterday had reduction done went home and returned after the second dislocation. She is now being placed in the observation unit and consult with orthopedics. She has been started on Dilaudid along with [place] and Voltaren gel added for pain control. Patient's initial blood pressure was 130/80 and subsequently 233/118, pulse ox 97% on 2 L, heart rate running in the 60s and 70s , afebrile. White count normal at 6.9, hemoglobin 15.0, BUN 26 and creatinine 1.05. 11/14: Patient developed shortness of breath this morning and A-Team was called. X-ray showed retrocardiac airspace disease partially obstructing the left hemidiaphragm may represent atelectasis or developing pneumonia. Multiple right. Peripheral lung nodules may relate to granulomas. Mediastinal widening from probable thoracic aortic aneurysm similar to 2017. A shunt is found to be wheezing and states that when she was eating she started coughing has had trouble ever since. She states she was eating eggs and sausage at the time. She also states she has had problems at home prior to admission with difficulty swallowing food. Consult added for Dr. Castaneda for emergent bronchoscopy and consult for Dr. Harden. Speech therapy consult added, Solu-Medrol 60 mg IV every 6 hours, DuoNeb treatments and Pulmicort continued. Zosyn added for gram- negative coverage. Patient made nothing by mouth until cleared by Dr. Castaneda. 11/15: Patient is slightly confused complaining of being hungry and asking if she can eat. Patient is restless and seems to be anxious. Plan discussed with nursing staff where multiple attempts for NG tube placement was unsuccessful and I would like to consult general surgery for NG tube insertion as modified barium swallow 1 be done before Saturday and I would like to stop Jevity at 20 mL/ h increased for goal of 50 mL/h start water flushes with tube feeding and continue her home medication as ordered. We'll repeat blood work in the morning and continue monitoring vital signs closely keep patient's nothing by mouth at this point 11/16: Patient continued to be slightly confused multiple attempts yesterday to place NG tube was unsuccessful general surgery evaluated the patient and recommended again's NG tube placement patient is still waiting on modified barium swallow and currently strictly nothing by mouth. General surgery recommended against NG tube placement, patient currently nothing by mouth, continue gentle hydration with normal saline at 75 mL/h repeat electrolytes in the morning and do modified barium swallow KATHYA. Patient may benefit from PEG tube placement in case she fail modified barium swallow. 11/17: Esophagram revealed some stasis in the upper thoracic esophagus and diffuse undulating contour suggesting either spasm or presbyesophagus. Limited assessment of esophageal motility due to patient condition. Relative narrowing distal esophagus just above the GE junction could represent mild stricture. 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 Discussed issue with stricture with GI with plan for EGD tomorrow. Patient states that she has been walking in her room. She continues to have significant rhonchi. IV fluids will be discontinued Patient has been afebrile, heart rate running in the 60s and 70s, blood pressure 168/70. She is currently on O2 3 L and pulseox 95%. Patient does have home O2 at 2 L so this will be weaned down to 2 L. She is currently on oral prednisone, oral Lasix. Discharge plan is to return home. Physical therapy has recommended home care but this was declined. Review of Systems Constitutional: Denies chills, Denies fever, Denies poor appetite Eyes: denies blurred vision, denies pain Ears, nose, mouth and throat: Denies dysphagia, Denies headache, Denies hoarseness, Denies sore throat, Denies vertigo Cardiovascular: Denies chest pain, Denies edema, Denies leg edema, Denies shortness of breath, Denies syncope Respiratory: Reports cough, Denies cough with sputum, reports dyspnea, Denies excessive sputum, Denies hemoptysis, Denies home oxygen Gastrointestinal: Denies abdominal pain, Denies diarrhea, Denies loss of appetite, Denies nausea, Denies vomiting Genitourinary: Denies dysuria, Denies hematuria, Denies urgency, Denies urinary frequency Musculoskeletal: Denies frequent falls, Denies gait dysfunction, Denies muscle weakness, Denies myalgias Musculoskeletal: left: shoulder pain Integumentary: Denies pruritus, Denies rash, Denies wounds Neurological: Denies aphasia, Denies change in mentation, Denies change in speech, Denies confusion, Denies gait dysfunction, Denies head injury, Denies numbness, Denies seizures, Denies weakness Psychiatric: Denies anxiety, Denies depression Endocrine: Denies fatigue, Denies weight change Objective - Vital Signs Vital signs: Vital Signs Temp 98.2 F 11/17/18 07:00 Pulse 72 11/17/18 08:06 Resp 18 11/17/18 08:00 BP 151/90 11/17/18 07:00 Pulse Ox 96 11/17/18 07:51 Intake & Output 11/16/18 11/17/18 11/17/18 18:59 06:59 18:59 Intake Total 1300 Balance 1300 Intake: Intake, IV Titration 700 Amount Piperacillin-Tazobactam 3 100 .375 gm In Sodium Chloride 0.9% 100 ml @ 25 mls/hr IVPB Q8HR [facility] Rx# :[id number] Sodium Chloride 0.9% 1, 600 000 ml @ 75 mls/hr IV . [id number] [facility] Rx#:[id number] Oral 600 Other: Voiding Method Diaper Diaper Diaper Incontinent - Exam General appearance: cooperative, in mild to moderate respiratory acute distress , obese - EENT Eyes: anicteric sclerae, PERRLA, normal appearance ENT: hearing grossly normal - Neck Neck: no lymphadenopathy, normal ROM, no other, no rigidity, no stridor, no thyromegaly - Respiratory Respiratory: bilateral: no accessory muscle usage, rhonchi bilaterally negative : diminished, dullness, rales - Cardiovascular Rhythm: regular Heart sounds: normal: S1, S2 Abnormal Heart Sounds: no systolic murmur, no diastolic murmur, no rub, no S3 Gallop - Gastrointestinal General gastrointestinal: normal bowel sounds, soft nontender to palpate - Integumentary Integumentary: no rash - Neurologic Neurologic: CNII-XII intact no sensory or motor deficit - Musculoskeletal Musculoskeletal: strength equal bilaterally. Left shoulder immobilized in a brace - Psychiatric Psychiatric: A&O x's 3, appropriate affect - Labs CBC & Chem 7: 11/14/18 08:21 11/14/18 08:21 Labs: Abnormal Lab Results - Last 24 Hours (Table) 11/16/18 11/16/18 11/16/18 Range/Units 11:23 17:00 19:30 POC Glucose (mg/dL) 124 H 131 H 132 H (75-99) mg/dL 11/17/18 Range/Units 07:36 POC Glucose (mg/dL) 117 H (75-99) mg/dL Microbiology - Last 24 Hours (Table) 11/14/18 15:15 Gram Stain - Final Bronchoalviolar Lavage - Left Bronchial Washings Culture - Final Assessment and Plan Plan: 1. Acute left shoulder dislocation, 2 episodes in 24 hours with reduction. Orthopedic consult. Patient has a special shoulder immobilizer that have been ordered by orthopedics. Continue IV Dilaudid, oral [place] for pain, Voltaren gel added. 2. Acute aspiration pneumonia. Consult with Dr. Castaneda for emergent bronchoscopy , Dr. Harden, speech therapy consult. Patient will start diet today. EGD for tomorrow regarding esophageal stricture. 3. Chronic heart failure, possibly diastolic due to coronary artery disease. Continue Lasix, losartan. 4. History of sick sinus syndrome status post pacemaker. 5. Coronary artery disease status post angioplasty with stent placement of the LAD May 2018. Continue Lipitor, Plavix. 6. Hyperlipidemia. 7. Recurrent depression. Continue Zoloft 100 mg daily, gabapentin 100 mg twice daily. 8. Hypertension. Continue losartan 100 mg daily, hydrochlorothiazide 12.5 mg daily, amlodipine 10 mg daily, amiodarone 200 mg daily. 9. GI prophylaxis. Pepcid. 10. DVT prophylaxis. Lovenox. Discharge plan: home Impression and plan of care have been directed as dictated by the signing physician. Laura Murillo nurse practitioner acting as scribe for signing physician.
[2018-11-17] MEDS: MULTIVITAMINS, THERA 1 EACH TAB PO SCH (13:47)
[2018-11-17 15:55] VITALS: BMI 35.9
[2018-11-17 17:16] LABS: Glucose,Whole Blood 154 mg/dL (75-99)
[2018-11-17] MEDS: DICLOFENAC SODIUM GEL 100 GM TUBE TOPICAL SCH ×2 (19:12→21:57)
[2018-11-17 20:11] LABS: Glucose,Whole Blood 200 mg/dL (75-99)
[2018-11-18] MEDS: SODIUM CHLORIDE 0.9% 1,000 ML IV SCH (00:46)
[2018-11-18] MEDS: PIPERACILLIN-TAZOBACTAM 3.375 GM in SODIUM CHLORIDE 0.9% 100 ML IVPB SCH ×2 (01:15→11:00)
[2018-11-18] MEDS: BUDESONIDE 1 MG/2 ML NEBU INHALATION SCH (07:26)
[2018-11-18] MEDS: IPRATROPIUM-ALBUTEROL 3 ML NEB INHALATION SCH ×2 (07:26→13:12)
[2018-11-18 07:55] LABS: Glucose,Whole Blood 96 mg/dL (75-99)
[2018-11-18 08:23] LABS: HCT 44.3 % (34.0-46.0); HGB 14.4 gm/dL (11.4-16.0); MCH 30.7 pg (25.0-35.0); MCHC 32.4 g/dL (31.0-37.0); MCV 94.7 fL (80.0-100.0); Mean Platelet Volume 7.8; Platelet Count 151 k/uL (150-450); RBC 4.68 m/uL (3.80-5.40); RDW 13.6 % (11.5-15.5); WBC 6.3 k/uL (3.8-10.6)
[2018-11-18 08:49] LABS: Albumin 3.2 g/dL (3.5-5.0); Calcium 8.8 mg/dL (8.4-10.2); Total Protein 5.7 g/dL (6.3-8.2)
[2018-11-18] MEDS: INSULIN ASPART (NovoLOG) 100 UNIT/ML VIAL SQ SCH ×3 (10:47→17:35)
[2018-11-18] MEDS: CLOPIDOGREL 75 MG TAB PO SCH (10:48)
[2018-11-18] MEDS: CYANOCOBALAMIN 500 MCG TAB PO SCH (10:48)
[2018-11-18] MEDS: ATORVASTATIN 40 MG TAB PO SCH (10:49)
[2018-11-18] MEDS: GABAPENTIN 100 MG CAP PO SCH (10:50)
[2018-11-18] MEDS: LOSARTAN 50 MG TAB PO SCH (10:57)
[2018-11-18] MEDS: predniSONE 20 MG TAB PO SCH ×2 (10:57→10:58)
[2018-11-18] MEDS: AMIODARONE 200 MG TAB PO SCH (10:58)
[2018-11-18] MEDS: SERTRALINE 100 MG TAB PO SCH (10:58)
[2018-11-18] MEDS: FUROSEMIDE 20 MG TAB PO SCH (10:58)
[2018-11-18] MEDS: DICLOFENAC SODIUM GEL 100 GM TUBE TOPICAL SCH ×2 (10:58→15:10)
[2018-11-18] MEDS: HYDROCHLOROTHIAZIDE 12.5 MG CAP PO SCH (10:58)
[2018-11-18] MEDS: amLODIPine 10 MG TAB PO SCH (10:58)
--- NOTE | 2018-11-18 11:10 | P.DS ---
Providers Date of admission: 11/14/18 09:20 Expected date of discharge: 11/18/18 Attending physician: Tanja Samson Consults: 11/13/18 11:11 Consult Physician Routine Consulting Provider: Jhonny Thorne Consult Reason/Comments: dislocated shoulder Do you want consulting provider notified?: Yes 11/14/18 09:04 Consult Physician Routine Consulting Provider: Rey Harden Consult Reason/Comments: aspiration Do you want consulting provider notified?: Yes Consult Physician Stat Consulting Provider: Jakub Castaneda Consult Reason/Comments: aspiration pneumonia Do you want consulting provider notified?: Yes 11/15/18 14:06 Consult Physician Stat Consulting Provider: Nishi Landaverde Consult Reason/Comments: NG tube placement, Patient aspirating, tube feed Do you want consulting provider notified?: Yes Primary care physician: [facility] Course: This is an 88-year-old female patient of Dr. 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 According to patient she had a fall in February 2018 but since then has significant pain in her left shoulder and had multiple dislocations and follows with Dr. Calix. She last saw him in August was put into a brace for 8 weeks. She has had 2 dislocations in the past 24 hours and came into the ER yesterday had reduction done went home and returned after the second dislocation. She is now being placed in the observation unit and consult with orthopedics. She has been started on Dilaudid along with [place] and Voltaren gel added for pain control. Patient's initial blood pressure was 130/80 and subsequently 233/118, pulse ox 97% on 2 L, heart rate running in the 60s and 70s , afebrile. White count normal at 6.9, hemoglobin 15.0, BUN 26 and creatinine 1.05. 11/14: Patient developed shortness of breath this morning and A-Team was called. X-ray showed retrocardiac airspace disease partially obstructing the left hemidiaphragm may represent atelectasis or developing pneumonia. Multiple right. Peripheral lung nodules may relate to granulomas. Mediastinal widening from probable thoracic aortic aneurysm similar to 2017. A shunt is found to be wheezing and states that when she was eating she started coughing has had trouble ever since. She states she was eating eggs and sausage at the time. She also states she has had problems at home prior to admission with difficulty swallowing food. Consult added for Dr. Castaneda for emergent bronchoscopy and consult for Dr. Harden. Speech therapy consult added, Solu-Medrol 60 mg IV every 6 hours, DuoNeb treatments and Pulmicort continued. Zosyn added for gram- negative coverage. Patient made nothing by mouth until cleared by Dr. Castaneda. 11/15: Patient is slightly confused complaining of being hungry and asking if she can eat. Patient is restless and seems to be anxious. Plan discussed with nursing staff where multiple attempts for NG tube placement was unsuccessful and I would like to consult general surgery for NG tube insertion as modified barium swallow 1 be done before Saturday and I would like to stop Jevity at 20 mL/ h increased for goal of 50 mL/h start water flushes with tube feeding and continue her home medication as ordered. We'll repeat blood work in the morning and continue monitoring vital signs closely keep patient's nothing by mouth at this point 11/16: Patient continued to be slightly confused multiple attempts yesterday to place NG tube was unsuccessful general surgery evaluated the patient and recommended again's NG tube placement patient is still waiting on modified barium swallow and currently strictly nothing by mouth. General surgery recommended against NG tube placement, patient currently nothing by mouth, continue gentle hydration with normal saline at 75 mL/h repeat electrolytes in the morning and do modified barium swallow KATHYA. Patient may benefit from PEG tube placement in case she fail modified barium swallow. 11/17: Esophagram revealed some stasis in the upper thoracic esophagus and diffuse undulating contour suggesting either spasm or presbyesophagus. Limited assessment of esophageal motility due to patient condition. Relative narrowing distal esophagus just above the GE junction could represent mild stricture. 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 Discussed issue with stricture with GI with plan for EGD tomorrow. Patient states that she has been walking in her room. She continues to have significant rhonchi. IV fluids will be discontinued Patient has been afebrile, heart rate running in the 60s and 70s, blood pressure 168/70. She is currently on O2 3 L and pulseox 95%. Patient does have home O2 at 2 L so this will be weaned down to 2 L. She is currently on oral prednisone, oral Lasix. Discharge plan is to return home. Physical therapy has recommended home care but this was declined. 11/18: Patient denies any new complaints today. Breathing status is stable. Her pulse ox is 96% on 2 L nasal cannula. Patient does have home O2 at 2 L which she uses if she needs at. She has agreed to go to [facility] for subacute rehab which will be arranged for today once insurance authorization has been obtained. Patient is scheduled for EGD this afternoon to evaluate possible esophageal stricture. If no consultations or problems from this, patient will be discharged to [facility] today. Discharge diagnoses: 1. Acute left shoulder dislocation, 2 episodes in 24 hours with reduction. 2. Acute aspiration pneumonia secondary to presbyesophagus and possible esophageal stricture. 3. Chronic heart failure, possibly systolic due to coronary artery disease. 4. History of sick sinus syndrome status post pacemaker. 5. Coronary artery disease status post angioplasty with stent placement of the LAD May 2018. 6. Hyperlipidemia. 7. Recurrent depression. 8. Hypertension. 9. Chronic hypoxic respiratory failure on home O2 Discharge plan: [facility] once insurance authorization has been obtained. Impression and plan of care have been directed as dictated by the signing physician. Laura Murillo nurse practitioner acting as scribe for signing physician. Patient Condition at Discharge: Good Plan - Discharge Summary Discharge Rx Participant: No New Discharge Prescriptions: New Budesonide [Pulmicort] 1 mg INHALATION RT-BID nebu Diclofenac Sodium Gel [Voltaren Gel] 2 gm TOPICAL QID tube Docusate [Colace] 100 mg PO DAILY PRN cap PRN Reason: Constipation Doxycycline [Vibramycin] 100 mg PO BID #14 cap Ipratropium-Albuterol Nebulize [Duoneb 0.5 mg-3 mg/3 ml Soln] 3 ml INHALATION RT-TID ampul.neb predniSONE 0 mg PO DIRECTED #40 tab Continue Sertraline [Zoloft] 100 mg PO DAILY Furosemide [Lasix] 20 mg PO DAILY Atorvastatin [Lipitor] 40 mg PO DAILY amLODIPine [Norvasc] 10 mg PO DAILY Losartan/Hydrochlorothiazide [Losartan-Hctz 100-12.5 mg Tab] 1 tab PO DAILY Clopidogrel [Plavix] 75 mg PO DAILY Amiodarone [Cordarone] 200 mg PO DAILY Multivit with Calcium,Iron,Min [Women's Multivitamin] 1 tab PO DAILY Ergocalciferol (Vitamin D2) [Vitamin D2] 50,000 unit PO Q7D Cyanocobalamin (Vitamin B-12) [Vitamin B-12] 1,000 mcg PO DAILY Gabapentin [Neurontin] 100 mg PO BID #6 cap Hydrocodone/Acetaminophen [[place] 7.5-325] 1 tab PO Q6HR PRN #12 tablet PRN Reason: Pain Discharge Medication List Amiodarone [Cordarone] 200 mg PO DAILY 06/24/18 [History] Atorvastatin [Lipitor] 40 mg PO DAILY 06/24/18 [History] Clopidogrel [Plavix] 75 mg PO DAILY 06/24/18 [History] Cyanocobalamin (Vitamin B-12) [Vitamin B-12] 1,000 mcg PO DAILY 06/24/18 [ History] Ergocalciferol (Vitamin D2) [Vitamin D2] 50,000 unit PO Q7D 06/24/18 [History] Furosemide [Lasix] 20 mg PO DAILY 06/24/18 [History] Losartan/Hydrochlorothiazide [Losartan-Hctz 100-12.5 mg Tab] 1 tab PO DAILY [History] Multivit with Calcium,Iron,Min [Women's Multivitamin] 1 tab PO DAILY 06/24/18 [ History] Sertraline [Zoloft] 100 mg PO DAILY 06/24/18 [History] amLODIPine [Norvasc] 10 mg PO DAILY 06/24/18 [History] Budesonide [Pulmicort] 1 mg INHALATION RT-BID nebu 11/18/18 [Rx] Diclofenac Sodium Gel [Voltaren Gel] 2 gm TOPICAL QID tube 11/18/18 [Rx] Docusate [Colace] 100 mg PO DAILY PRN cap 11/18/18 [Rx] Doxycycline [Vibramycin] 100 mg PO BID #14 cap 11/18/18 [Rx] Gabapentin [Neurontin] 100 mg PO BID #6 cap 11/18/18 [Rx] Hydrocodone/Acetaminophen [[place] 7.5-325] 1 tab PO Q6HR PRN #12 tablet 11/18/18 [Rx] Ipratropium-Albuterol Nebulize [Duoneb 0.5 mg-3 mg/3 ml Soln] 3 ml INHALATION RT -TID ampul.neb 11/18/18 [Rx] predniSONE 0 mg PO DIRECTED #40 tab 11/18/18 [Rx] Follow up Appointment(s)/Referral(s): [facility], [NON-STAFF] - As Needed Jhonny Thorne MD [STAFF PHYSICIAN] - 11/25/18 1:00 pm Oliver Balbuena MD [Primary Care Provider] - 1 Week (in one week after discharge from [facility]) Jakub Castaneda MD [STAFF PHYSICIAN] - 1 Week (office closed please call for appointment) Activity/Diet/Wound Care/Special Instructions: Sling and swathe should remain in place at all times except for showering and dressing. When it is removed, the shoulder must remain at rest at her side. She must avoid active elevation and especially external rotation of the shoulder. May work on range of motion of the elbow. Follow up with Dr. Thorne in the office next week if possible. Discharge Disposition: TRANSFER TO SNF/ECF
--- NOTE | 2018-11-18 12:00 | P.PN ---
Subjective Progress Note Date: 11/18/18 88-year-old female who was seen evaluated examined, this patient has been admitted into the hospital with problems associated with left shoulder pain, patient has been lately developing problems associated with swallowing dysfunction has the intermittent choking with food which is been going on for several weeks to month lately as the [id number] describes symptoms and episode have been more frequent, this morning patient had an episode in which while she was eating breakfast choked on food started coughing about with particles of food I was asked to evaluate this patient and consider for bronchoscopy. 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 According to patient she had a fall in February 2018 but since then has significant pain in her left shoulder and had multiple dislocations and follows with Dr. Calix. She last saw him in August was put into a brace for 8 weeks. She has had 2 dislocations in the past 24 hours and came into the ER yesterday had reduction done went home and returned after the second dislocation. She is now being placed in the observation unit and consult with orthopedics. She has been started on Dilaudid along with [place] and Voltaren gel added for pain control. Patient's initial blood pressure was 130/80 and subsequently 233/118, pulse ox 97% on 2 L, heart rate running in the 60s and 70s , afebrile. White count normal at 6.9, hemoglobin 15.0, BUN 26 and creatinine 1.05. 11/15/2018: Patient seen and examined covering for Dr. Castaneda. The patient underwent bronchoscopy for aspiration pneumonia. The patient is complaining of some abdominal pain and acid reflux. She states she has not had a bowel movement several days and like a stool softener. She states she feels like her breathing is a little bit better today. She is currently on 3 L nasal cannula with O2 saturation 94%. She has been afebrile. 11/16/2018: Patient seen and examined. Patient states her breathing is okay. She is currently on room air with O2 saturation 93%. She does state that she coughs on occasion. Patient is being evaluated by surgical team for possible gastric tube. 11/17/2018: Patient seen and examined for follow-up. The patient is undergoing workup for dysphagia. She states her breathing is getting better. She does have an occasional cough. She states she has not been choking on her food. She denies fevers and chills. 11/18/2018: Patient seen and examined. Patient states her breathing is fine. She denies any cough, shortness of breath, wheezing. She is on 2 L nasal cannula. Objective - Vital Signs Vital signs: Vital Signs Temp 98.5 F 11/18/18 07:00 Pulse 68 11/18/18 07:38 Resp 12 11/18/18 07:00 BP 161/85 11/18/18 07:00 Pulse Ox 96 11/18/18 07:26 Intake & Output 11/17/18 11/18/18 11/18/18 18:59 06:59 18:59 Intake Total 240 100 Balance 240 100 Weight 89 kg Intake: Intake, IV Titration 100 Amount Piperacillin-Tazobactam 3 100 .375 gm In Sodium Chloride 0.9% 100 ml @ 25 mls/hr IVPB Q8HR [facility] Rx# :[id number] Oral 240 Other: Voiding Method Diaper Diaper Diaper Incontinent Incontinent Incontinent # Voids 1 - Exam Gen.: Patient is alert and oriented 3, no acute distress, obese Cardiovascular: Regular rate and rhythm, S1/S2 Lungs: Diminished breath sounds at the bases otherwise clear Abdomen: Soft nontender nondistended positive bowel sounds Extremities: Trace edema - Labs CBC & Chem 7: 11/18/18 07:38 11/18/18 07:38 Labs: Abnormal Lab Results - Last 24 Hours (Table) 11/17/18 11/17/18 11/18/18 Range/Units 17:14 20:11 07:38 Potassium 3.0 L (3.5-5.1) mmol/L Chloride 108 H (98-107) mmol/L Carbon Dioxide 34 H (22-30) mmol/L BUN 38 H (7-17) mg/dL POC Glucose (mg/dL) 154 H 200 H (75-99) mg/dL AST 72 H (14-36) U/L ALT 59 H (9-52) U/L Total Protein 5.7 L (6.3-8.2) g/dL Albumin 3.2 L (3.5-5.0) g/dL Assessment and Plan Assessment: Aspiration pneumonia, s/p bronchoscopy with removal of multiple mucous plugs Chronic developing progressive dysphagia Acute hypoxic respiratory failure Severe morbid obesity likely sleep disorder breathing and sleep apnea to be valid further outpatient setting Dislocated shoulder, acute on the left side Chronic congestive heart failure likely diastolic heart failure Coronary artery disease Dyslipidemia hypertension hypertensive cardiovascular disease Plan: Broad-spectrum antibiotics IV steroids - taper Breathing treatment Aspiration precautions Outpatient evaluation for possible JOSR Patient seen and examined covering for Dr. Tonya Kolb to JOHNNA from pulmonary standpoint
[2018-11-18 12:20] LABS: Glucose,Whole Blood 91 mg/dL (75-99)
[2018-11-18] MEDS ORDERED: LIDOCAINE 1% INJ 10MG/ML (20 ML MDV) ONE (14:32)
[2018-11-18] MEDS ORDERED: PROPOFOL 10 MG/ML 20 ML VIAL IV ONE (14:32)
[2018-11-18] MEDS ORDERED: IV FLUID CONTINUATION 1,000 ML IV ONE (14:32)
[2018-11-18] MEDS ORDERED: SODIUM CHLORIDE 0.9% 500 ML IV ONE (14:53)
[2018-11-18] MEDS ORDERED: PANTOPRAZOLE SODIUM 40 MG GRANULE PKT PO SCH (15:00)
[2018-11-18] MEDS: MULTIVITAMINS, THERA 1 EACH TAB PO SCH (15:10)
--- NOTE | 2018-11-18 15:12 | P.PCN ---
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 The patient has had issues with her shoulder since dislocation in February 2018. And presented to the hospital for evaluation after 2 dislocations in the past 24 hours. During the patient's day was concern for aspiration as the patient had an episode of difficulty breathing/hypoxia and was seen by the pulmonology service who took the patient for bronchoscopy. The patient and her family reports that the patient has had difficulty swallowing for a long while. The patient feels this is secondary to eating too fast. She will have frequent episodes of coughing and hypoxia during eating. The patient had a video swallow which was significant for normal coordination. She also had a barium swallow with reports of possible presbyesophagus as well as concern for the possibility of a distal esophageal stricture. PROCEDURE PERFORMED: Esophagogastroduodenoscopy with biopsy. PREOPERATIVE DIAGNOSIS: Esophageal dysphagia. ESTIMATED BLOOD LOSS: Minimal. IV sedation per anesthesia. PROCEDURE: After informed consent was obtained, the patient was brought into the endoscopy unit. IV sedation was administered by Anesthesia under continuous monitoring. Initially the Olympus GIF-190 video endoscope was inserted into the mouth. Esophagus intubated without any difficulty. It was gradually advanced into the stomach and duodenum and carefully examined. The bulb and the second part of the duodenum appeared normal. The scope at this time was withdrawn to the stomach, adequately insufflated with air, and upon careful examination, mucosa of the antrum, body, cardia and the fundus appeared normal, except for some mild scattered erythema in the antrum and body suggestive of gastritis with biopsies taken. The scope was then withdrawn into the esophagus. The GE junction was located at 35 cm from the incisors. The esophagus appeared somewhat tortuous but there were no strictures, erosions or ulcerations seen and the patient tolerated the procedure well. IMPRESSION: 1. Mild gastritis of the antrum and body, biopsied. 2. Tortuous esophagus consistent with findings from barium swallow. RECOMMENDATIONS: The findings of this examination were discussed with the patient, her son and [id number]. We'll add Protonix daily given gastritis. Await pathology from biopsies. Okay for chopped diet as tolerated. Continue to adhere to aspiration precautions discussed with the patient by speech language pathology including sitting up when eating, small bites, not lying down after eating, and subsequently water between bites of food.
[2018-11-18 16:24] VITALS: RESP 16; TEMP 98
[2018-11-18 17:28] LABS: Glucose,Whole Blood 179 mg/dL (75-99)
[2018-11-18 17:39] VITALS: BP 149/83; PULSE 83
== END 2018-11-18 18:31 | DRG 177 ==
LOC: EC 08:19 → 4SSUR 11:13 → OBSVTOIN 11-14 09:20
PROVIDERS: ADMIT Family Medicine; ATTEND Family Medicine
PROC: 0RSKXZZ Reposition Left Shoulder Joint, External Approach (ICD-10-PCS; 2018-11-13)
PROC: 0B9C7ZX Drainage of Right Upper Lung Lobe, Via Natural or Artificial Opening, Diagnostic (ICD-10-PCS; 2018-11-14)
PROC: 0B9J7ZX Drainage of Left Lower Lung Lobe, Via Natural or Artificial Opening, Diagnostic (ICD-10-PCS; principal; 2018-11-14 08:00)
PROC: 0DB68ZX Excision of Stomach, Via Natural or Artificial Opening Endoscopic, Diagnostic (ICD-10-PCS; 2018-11-18)
PROC: 0DB78ZX Excision of Stomach, Pylorus, Via Natural or Artificial Opening Endoscopic, Diagnostic (ICD-10-PCS; 2018-11-18)
DX: J69.0 Pneumonitis due to inhalation of food and vomit (principal); J96.21 Acute and chronic respiratory failure with hypoxia; F33.9 Major depressive disorder, recurrent, unspecified; I50.32 Chronic diastolic (congestive) heart failure; T17.890A Other foreign object in other parts of respiratory tract causing asphyxiation, initial encounter; I11.0 Hypertensive heart disease with heart failure; I71.2 Thoracic aortic aneurysm, without rupture; K22.2 Esophageal obstruction; E66.01 Morbid (severe) obesity due to excess calories; F03.90 Unspecified dementia, unspecified severity, without behavioral disturbance, psychotic disturbance, mood disturbance, and anxiety; E78.5 Hyperlipidemia, unspecified; F41.9 Anxiety disorder, unspecified; G47.33 Obstructive sleep apnea (adult) (pediatric); I25.10 Atherosclerotic heart disease of native coronary artery without angina pectoris; I25.2 Old myocardial infarction; K21.9 Gastro-esophageal reflux disease without esophagitis; K22.8 Other specified diseases of esophagus; K29.70 Gastritis, unspecified, without bleeding; M24.412 Recurrent dislocation, left shoulder; R13.14 Dysphagia, pharyngoesophageal phase; M19.90 Unspecified osteoarthritis, unspecified site; R32 Unspecified urinary incontinence; Z68.35 Body mass index [BMI] 35.0-35.9, adult; Z79.02 Long term (current) use of antithrombotics/antiplatelets; Z79.899 Other long term (current) drug therapy; Z88.5 Allergy status to narcotic agent; Z99.81 Dependence on supplemental oxygen; Z95.5 Presence of coronary angioplasty implant and graft; Z95.0 Presence of cardiac pacemaker; Z91.81 History of falling; Z90.49 Acquired absence of other specified parts of digestive tract; Z98.42 Cataract extraction status, left eye; Z98.41 Cataract extraction status, right eye; Z96.1 Presence of intraocular lens; Z80.1 Family history of malignant neoplasm of trachea, bronchus and lung; Z82.3 Family history of stroke; Z82.49 Family history of ischemic heart disease and other diseases of the circulatory system
CPT/HCPCS: 23650; 31624; 36415; 43239; 71045; 74220; 74230; 80053; 83036; 85025; 85027; 85379; 85610; 85730; 87070; 87102; 87116; 87205; 87206; 87252; 87496; 87498; 87502; 87529; 87541; 87634; 87798; 88108; 88305; 94640; 94760; 96361; 96372; 96374; 96375; 99152; 99153; 99285

== ENCOUNTER 2019-02-10 09:16 | Emergency (ER) | payer MEDICARE, BC ==
[2019-02-10] MEDS ORDERED: HYDROmorphone 0.5 MG/0.5 ML SYRINGE IVP STA (09:24)
[2019-02-10] MEDS ORDERED: ONDANSETRON 4 MG/2 ML VIAL IVP STA (09:24)
--- NOTE | 2019-02-10 09:26 | ED ---
Upper Extremity HPI - General Stated Complaint: dislocated shoulder Time Seen by Provider: 02/10/19 09:24 Source: patient, EMS, RN notes reviewed Mode of arrival: EMS Limitations: physical limitation - History of Present Illness Initial Comments: 88-year-old female presents emergency department via EMS chief complaint left shoulder pain. Patient's had prior dislocations multiple times. Patient states usually happens in her sleep. Patient woke up with severe pain to left shoulder. Denies any trauma. She states she is unable to move it's. Patient states she has no paresthesias. Denies any chest pain or shortness of breath. Patient offers no other complaints. - Related Data Home Medications Medication Instructions Recorded Confirmed Amiodarone [Cordarone] 200 mg PO DAILY 06/24/18 02/10/19 Atorvastatin [Lipitor] 40 mg PO HS 06/24/18 02/10/19 Clopidogrel [Plavix] 75 mg PO DAILY 06/24/18 02/10/19 Cyanocobalamin (Vitamin B-12) 1,000 mcg PO DAILY 06/24/18 02/10/19 [Vitamin B-12] Ergocalciferol (Vitamin D2) 50,000 unit PO WE 06/24/18 02/10/19 [Vitamin D2] Furosemide [Lasix] 20 mg PO BID 06/24/18 02/10/19 Losartan/Hydrochlorothiazide 1 tab PO DAILY 06/24/18 02/10/19 [Losartan-Hctz 100-12.5 mg Tab] Multivit with Calcium,Iron,Min 1 tab PO DAILY 06/24/18 02/10/19 [Women's Multivitamin] Sertraline [Zoloft] 100 mg PO DAILY 06/24/18 02/10/19 Acetaminophen Tab [Tylenol Tab] 325 mg PO DAILY 02/10/19 02/10/19 Aspirin EC [Ecotrin Low Dose] 81 mg PO DAILY 02/10/19 02/10/19 Levothyroxine Sodium [Synthroid] 25 mcg PO DAILY 02/10/19 02/10/19 Nitroglycerin Sl Tabs [Nitrostat] 0.4 mg SUBLINGUAL Q5M PRN 02/10/19 02/10/19 Potassium Chloride Oral Liquid 20 meq PO BID 02/10/19 02/10/19 amLODIPine [Norvasc] 5 mg PO DAILY 02/10/19 02/10/19 Previous Rx's Medication Instructions Recorded Budesonide [Pulmicort] 1 mg INHALATION RT-BID nebu 11/18/18 Gabapentin [Neurontin] 100 mg PO BID #6 cap 11/18/18 Ipratropium-Albuterol Nebulize 3 ml INHALATION RT-TID ampul.neb 11/18/18 [Duoneb 0.5 mg-3 mg/3 ml Soln] Allergies Allergy/AdvReac Type Severity Reaction Status Date / Time morphine AdvReac Nausea & Verified 02/10/19 09:38 Vomiting Review of Systems ROS Statement: Those systems with pertinent positive or pertinent negative responses have been documented in the HPI. ROS Other: All systems not noted in ROS Statement are negative. Past Medical History Past Medical History: Heart Failure, Hyperlipidemia, Hypertension, Myocardial Infarction (ME), Musculoskeletal Disorder, Osteoarthritis (OA) Additional Past Medical History / Comment(s): worsening SOB w/exertion, frequent fatigue, uses oxygen @2l @[facility] & sometimes during the day depending on sats., occasional stool incontinence, urinary incontinence, fell & dislocated left shoulder in February 2018-no surgery but limited mobility w/it Last Myocardial Infarction Date:: unknown History of Any Multi-Drug Resistant Organisms: None Reported Past Surgical History: Appendectomy, Heart Catheterization With Stent, Pacemaker, Tonsillectomy Additional Past Surgical History / Comment(s): PCI/stents with last stent placed 06/26/18, pacemaker placed in 2008 and battery recently tested, colonoscopy- normal, bilateral cataract removals Past Anesthesia/Blood Transfusion Reactions: No Reported Reaction Date of Last Stent Placement:: 2007 Type of Cardiac Device: Permanent Pacemaker Device Placement Date:: 08-10-14 Smoking Status: Never smoker - Past Family History Father Family Medical History: Cancer Additional Family Medical History / Comment(s): Lung cancer Mother Family Medical History: Coronary Artery Disease (CAD), CVA/TIA Brother(s) Additional Family Medical History / Comment(s): Patient has one brother has passed but she does not know etiology. Sister(s) Additional Family Medical History / Comment(s): Patient is a total of 3 sisters. One has history of coronary artery disease and stroke. One has passed but patient does not know etiology. One sister has no major medical problems. Son(s) Additional Family Medical History / Comment(s): Patient has 2 stents. One son has Parkinson's and one son has coronary artery disease. General Exam Limitations: no limitations General appearance: alert, in no apparent distress Head exam: Present: atraumatic, normocephalic, normal inspection Respiratory exam: Present: normal lung sounds bilaterally. Absent: respiratory distress, wheezes, rales, rhonchi, stridor Cardiovascular Exam: Present: regular rate, normal rhythm, normal heart sounds. Absent: systolic murmur, diastolic murmur, rubs, gallop, clicks Extremities exam: Present: other (Left shoulder there is obvious dislocation, neurovascular intact, limited range of motion mild tenderness with palpation) Skin exam: Present: warm, dry, intact, normal color. Absent: rash Course Vital Signs 02/10/19 02/10/19 02/10/19 09:28 10:15 10:20 Temperature 97.9 F Pulse Rate 62 61 61 Respiratory 20 18 18 Rate Blood Pressure 140/87 82/59 96/74 O2 Sat by Pulse 96 96 95 Oximetry Procedures - Orthopedic Joint Reduction Joint #1 Consent Obtained: verbal consent Side: left Joint Reduction Location: shoulder Shoulder Technique Used (if applicable): traction/counter-traction, scapula manipulation Post-Reduction Neuro Exam: intact Post-Reduction Vascular Exam: intact Post Reduction X-Ray Obtained: Yes Post Reduction X-Ray Results: reduced Splint Applied: Yes (sling) Patient Tolerated Procedure: well, no complications Medical Decision Making - Medical Decision Making 88-year-old female presents emergency department for shoulder dislocation. This was able to be reduced in the emergency department no difficulty patient was placed ice went. Patient will be discharged follow-up with orthopedics as she seen in the past for this. Disposition Clinical Impression: Dislocation of shoulder, left, closed Disposition: HOME SELF-CARE Condition: Stable Instructions (If sedation given, give patient instructions): Shoulder Dislocation (ED) Additional Instructions: Please return to the Emergency Department if symptoms worsen or any other concerns. Is patient prescribed a controlled substance at d/c from ED?: No Referrals: Oliver Balbuena MD [Primary Care Provider] - 1-2 days Time of Disposition: 10:53
[2019-02-10] MEDS ORDERED: LORazepam 2 MG/ML INJ IV STA (09:59)
[2019-02-10] MEDS ORDERED: SODIUM CHLORIDE 0.9% 500 ML 500 ML IV ONE (10:20)
--- NOTE | 2019-02-10 10:20 | XR ---
EXAMINATION TYPE: XR shoulder complete LT DATE OF EXAM: 02/10/2019 COMPARISON: 11/12/2018 HISTORY: 88-year-old female chronic dislocation of the left shoulder, pain TECHNIQUE: 3 views FINDINGS: Anterior subcoracoid glenohumeral joint dislocation. Degenerative spurring of the humeral head. Bony irregularity at the greater tuberosity. Mild degenerative change of the AC joint. Scapular Y view is very limited. IMPRESSION: Recurrent anterior subcoracoid glenohumeral joint dislocation. Bony irregularity at the greater tuber osity may reflect chronic rotator cuff tendinopathy or underlying Hill-Sachs deformity not well sulma cterized on the present exam.
[2019-02-10 10:21] VITALS: RESP 18
--- NOTE | 2019-02-10 10:44 | XR ---
EXAMINATION TYPE: XR shoulder limited LT DATE OF EXAM: 02/10/2019 COMPARISON: NONE HISTORY: 88-year-old female with pain, postreduction TECHNIQUE: Single AP view FINDINGS: Left anterior chest wall pacemaker generator. Left base not well assessed, underlying effusion diffic ult to exclude. Interval reduction of the glenohumeral joint. There is degenerative spurring at the j oint. Bony irregularity of the greater tuberosity redemonstrated. Mild degenerative change AC joint. IMPRESSION: Interval reduction of the left glenohumeral joint. Mild GH joint OA and changes of chronic rotator cu ff tendinopathy, possible shallow Hill-Sachs deformity. Hazy density at the left base could represent an underlying small pleural effusion. Clinically correl ate.
[2019-02-10] MEDS ORDERED: ACET/COD 300 MG/30 MG STARTER PACK 6 TAB BTL PO STA (11:35)
[2019-02-10 11:51] VITALS: BP 121/79; PULSE 77; TEMP 97.3
== END 2019-02-10 11:51 | disposition home or self-care (01) ==
LOC: EC 09:16
DX: S43.005A Unspecified dislocation of left shoulder joint, initial encounter (principal); I11.0 Hypertensive heart disease with heart failure; I50.9 Heart failure, unspecified; I25.2 Old myocardial infarction; E78.5 Hyperlipidemia, unspecified; M19.90 Unspecified osteoarthritis, unspecified site; Z79.01 Long term (current) use of anticoagulants; Z79.899 Other long term (current) drug therapy; Z79.82 Long term (current) use of aspirin; Z79.890 Hormone replacement therapy; Z88.5 Allergy status to narcotic agent; Z95.0 Presence of cardiac pacemaker; Z95.5 Presence of coronary angioplasty implant and graft
CPT/HCPCS: 73030; 73020; 99283; 23650; 96374; 96375 ×2; J2060; J2405; J1170

== ENCOUNTER 2019-02-12 08:26 | Emergency (ER) | payer MEDICARE, BC ==
[2019-02-12 08:37] VITALS: TEMP 98.4
[2019-02-12] MEDS ORDERED: MORPHINE SULFATE 4 MG/ML SYRINGE IM STA (08:53)
[2019-02-12] MEDS ORDERED: HYDROmorphone 0.5 MG/0.5 ML SYRINGE IM STA ×2 (09:01→09:45)
--- NOTE | 2019-02-12 09:05 | ED ---
Upper Extremity HPI - General Source: patient, EMS Mode of arrival: EMS Limitations: physical limitation <Rebecca Dias - Last Filed: 02/12/19 11:22> <Choco Andersen - Last Filed: 02/12/19 12:41> - General Chief Complaint: Extremity Injury, Upper Stated Complaint: Shoulder pain Time Seen by Provider: 02/12/19 08:47 - History of Present Illness Initial Comments: 88-year-old female presenting today for chief complaint of "my left shoulder is dislocated again". Patient states she has chronic dislocations the left shoulder. She states usually wears a brace however sometimes is uncomfortable she takes it off. Patient states that she was just seen 4 days prior for same complaint. Patient states they reduced it without sedation. (Rebecca Dias) - Related Data Home Medications Medication Instructions Recorded Confirmed Amiodarone [Cordarone] 200 mg PO DAILY 06/24/18 02/12/19 Atorvastatin [Lipitor] 40 mg PO HS 06/24/18 02/12/19 Clopidogrel [Plavix] 75 mg PO DAILY 06/24/18 02/12/19 Cyanocobalamin (Vitamin B-12) 1,000 mcg PO DAILY 06/24/18 02/12/19 [Vitamin B-12] Ergocalciferol (Vitamin D2) 50,000 unit PO WE 06/24/18 02/12/19 [Vitamin D2] Furosemide [Lasix] 20 mg PO BID 06/24/18 02/12/19 Losartan/Hydrochlorothiazide 1 tab PO DAILY 06/24/18 02/12/19 [Losartan-Hctz 100-12.5 mg Tab] Multivit with Calcium,Iron,Min 1 tab PO DAILY 06/24/18 02/12/19 [Women's Multivitamin] Sertraline [Zoloft] 100 mg PO DAILY 06/24/18 02/12/19 Acetaminophen Tab [Tylenol Tab] 325 mg PO DAILY 02/10/19 02/12/19 Aspirin EC [Ecotrin Low Dose] 81 mg PO DAILY 02/10/19 02/12/19 Levothyroxine Sodium [Synthroid] 25 mcg PO DAILY 02/10/19 02/12/19 Nitroglycerin Sl Tabs [Nitrostat] 0.4 mg SUBLINGUAL Q5M PRN 02/10/19 02/12/19 Potassium Chloride Oral Liquid 20 meq PO BID 02/10/19 02/12/19 amLODIPine [Norvasc] 5 mg PO DAILY 02/10/19 02/12/19 Previous Rx's Medication Instructions Recorded Budesonide [Pulmicort] 1 mg INHALATION RT-BID nebu 11/18/18 Gabapentin [Neurontin] 100 mg PO BID #6 cap 11/18/18 Ipratropium-Albuterol Nebulize 3 ml INHALATION RT-TID ampul.neb 11/18/18 [Duoneb 0.5 mg-3 mg/3 ml Soln] Allergies Allergy/AdvReac Type Severity Reaction Status Date / Time morphine AdvReac Nausea & Verified 02/12/19 08:44 Vomiting Review of Systems ROS Other: All systems not noted in ROS Statement are negative. <Rebecca Dias - Last Filed: 02/12/19 11:22> ROS Other: All systems not noted in ROS Statement are negative. <Choco Andersen - Last Filed: 02/12/19 12:41> ROS Statement: Those systems with pertinent positive or pertinent negative responses have been documented in the HPI. Past Medical History Past Medical History: Heart Failure, Hyperlipidemia, Hypertension, Myocardial Infarction ([place]), Musculoskeletal Disorder, Osteoarthritis (OA) Additional Past Medical History / Comment(s): worsening SOB w/exertion, frequent fatigue, uses oxygen @2l @[facility] & sometimes during the day depending on sats., occasional stool incontinence, urinary incontinence, fell & dislocated left shoulder in February 2018-no surgery but limited mobility w/it Last Myocardial Infarction Date:: unknown History of Any Multi-Drug Resistant Organisms: None Reported Past Surgical History: Appendectomy, Heart Catheterization With Stent, Pacemaker, Tonsillectomy Additional Past Surgical History / Comment(s): PCI/stents with last stent placed 06/26/18, pacemaker placed in 2008 and battery recently tested, colonoscopy- normal, bilateral cataract removals Past Anesthesia/Blood Transfusion Reactions: No Reported Reaction Date of Last Stent Placement:: 2007 Type of Cardiac Device: Permanent Pacemaker Device Placement Date:: 08-10-14 Past Psychological History: Anxiety, Depression Smoking Status: Never smoker Past Alcohol Use History: Occasional Past Drug Use History: None Reported - Past Family History Father Family Medical History: Cancer Additional Family Medical History / Comment(s): Lung cancer Mother Family Medical History: Coronary Artery Disease (CAD), CVA/TIA Brother(s) Additional Family Medical History / Comment(s): Patient has one brother has passed but she does not know etiology. Sister(s) Additional Family Medical History / Comment(s): Patient is a total of 3 sisters. One has history of coronary artery disease and stroke. One has passed but patient does not know etiology. One sister has no major medical problems. Son(s) Additional Family Medical History / Comment(s): Patient has 2 stents. One son has Parkinson's and one son has coronary artery disease. <Rebecca Dias L - Last Filed: 02/12/19 11:22> General Exam Limitations: physical limitation <Rebecca Dias L - Last Filed: 02/12/19 11:22> Course Vital Signs 02/12/19 02/12/19 02/12/19 08:35 09:00 09:30 Temperature 98.4 F Pulse Rate 61 Respiratory 19 Rate Blood Pressure 118/96 118/96 122/78 O2 Sat by Pulse 95 95 93 L Oximetry 02/12/19 02/12/19 02/12/19 10:00 10:30 10:42 Temperature Pulse Rate 68 Respiratory 18 Rate Blood Pressure 137/64 142/91 135/79 O2 Sat by Pulse 91 L 95 100 Oximetry 02/12/19 02/12/19 02/12/19 10:45 11:04 11:15 Temperature Pulse Rate 64 64 Respiratory 18 19 19 Rate Blood Pressure 129/84 112/62 124/66 O2 Sat by Pulse 100 98 99 Oximetry 02/12/19 02/12/19 11:30 12:14 Temperature Pulse Rate 68 Respiratory 18 19 Rate Blood Pressure 111/62 116/66 O2 Sat by Pulse 99 Oximetry Procedures - Orthopedic Joint Reduction Joint #1 Consent Obtained: written consent Side: left Joint Reduction Location: shoulder Analgesia: procedural sedation Shoulder Technique Used (if applicable): traction/counter-traction Post-Reduction Neuro Exam: intact Post-Reduction Vascular Exam: intact Post Reduction X-Ray Obtained: Yes Post Reduction X-Ray Results: reduced Splint Applied: Yes Patient Tolerated Procedure: well - Procedural Sedation Procedural Sedation Start Time: 10:42 Procedural Sedation Stop Time: 11:15 Indications: fracture/dislocation reduction ASA Class: II Mallampati Airway Score: 2 Preparation: school business administrator applied, pulse oximeter, supplemental O2 applied, suction/airway equipment at bedside IV Etomidate Dose (mgs): 7 Complications: none Patient Tolerated Procedure: well <Choco Andersen - Last Filed: 02/12/19 12:41> Disposition Is patient prescribed a controlled substance at d/c from ED?: No Time of Disposition: 11:21 <Rebecca Dias - Last Filed: 02/12/19 11:22> <Choco Andersen - Last Filed: 02/12/19 12:41> Clinical Impression: Recurrent dislocation, left shoulder, Left shoulder pain, Anterior dislocation of left shoulder Disposition: HOME SELF-CARE Condition: Good Instructions (If sedation given, give patient instructions): Shoulder Dislocation (ED), Moderate Sedation (ED) Additional Instructions: Please use medication as discussed. Please follow-up with family doctor in the next 2 days. Please wear sling as discussed Please return to emergency room if the symptoms increase or worsen or for any other concerns. Referrals: Oliver Balbuena MD [Primary Care Provider] - 1-2 days Jhonny Thorne MD [STAFF PHYSICIAN] - 1-2 days
--- NOTE | 2019-02-12 09:25 | XR ---
EXAMINATION TYPE: XR shoulder complete LT DATE OF EXAM: 02/12/2019 COMPARISON: NONE HISTORY: Pain TECHNIQUE: Two views are submitted. FINDINGS: The osseous structures are intact. There is anterior dislocation of the humeral head. Arthropathy of the AC joint. No definite fracture line. IMPRESSION: 1. Anterior dislocation of the femoral head.
[2019-02-12] MEDS ORDERED: LORazepam 2 MG/ML INJ IM STA (09:46)
[2019-02-12] MEDS ORDERED: ETOMIDATE 2 MG/ML 10 ML VIAL IV STA (10:04)
--- NOTE | 2019-02-12 11:06 | XR ---
EXAMINATION TYPE: XR shoulder limited LT DATE OF EXAM: 02/12/2019 COMPARISON: NONE HISTORY: Pain TECHNIQUE: One view submitted. FINDINGS: There is now anatomic alignment with no evidence of dislocation. However there is marked deformity al yue the superior margin of the humeral head compatible with a Bankart deformity. Additionally there i s slight irregularity along the inferior margin the humerus which may represent a minimally displaced fracture. Cardiac device noted. IMPRESSION: 1. Post reduction appears anatomic alignment. 2. There appears to be a Hill-Sachs fracture of the humeral head. Slight cortical offset along the in ferior margin of the humerus may represent additional nondisplaced fracture.
[2019-02-12] MEDS ORDERED: KETOROLAC 30 MG/ML 1 ML VIAL IM STA (11:44)
[2019-02-12 12:15] VITALS: BP 116/66; PULSE 68; RESP 19
== END 2019-02-12 12:15 | disposition home or self-care (01) ==
LOC: EC 08:26
DX: M24.412 Recurrent dislocation, left shoulder (principal); I11.0 Hypertensive heart disease with heart failure; I50.9 Heart failure, unspecified; E78.5 Hyperlipidemia, unspecified; I25.2 Old myocardial infarction; F41.9 Anxiety disorder, unspecified; F32.9 Major depressive disorder, single episode, unspecified; Z79.82 Long term (current) use of aspirin; Z79.890 Hormone replacement therapy; Z79.899 Other long term (current) drug therapy; Z88.5 Allergy status to narcotic agent; Z95.0 Presence of cardiac pacemaker; Z95.5 Presence of coronary angioplasty implant and graft
CPT/HCPCS: 99283; 23650; 99152; 99153; 96372 ×3; 73030; 73020; J2060; J1170

== ENCOUNTER 2019-03-05 19:54 | Inpatient (IN) | payer MEDICARE, BC ==
--- NOTE | 2019-03-06 00:41 | XR ---
EXAM: XR Chest, 1 View CLINICAL HISTORY: ITS.REASON XR Reason: sob chf TECHNIQUE: Frontal view of the chest. COMPARISON: No relevant prior studies available. FINDINGS: Lungs: Unremarkable. No consolidation. Pleural space: Unremarkable. No pneumothorax. Heart: Cardiomegaly. Pacemaker leads in place. Mediastinum: Unremarkable. Bones/joints: No definite fracture. IMPRESSION: No acute findings.
[2019-03-06] MEDS: GABAPENTIN 100 MG CAP PO SCH ×3 (00:50→20:49)
[2019-03-06] MEDS: DOCUSATE 100 MG CAP PO SCH ×3 (00:50→20:49)
[2019-03-06] MEDS: ATORVASTATIN 40 MG TAB PO SCH ×2 (00:50→20:49)
[2019-03-06 01:25] LABS: Basophils % (A) 0 %; Eosinophils # (A) 0.1 k/uL (0-0.7); Eosinophils % (A) 1 %; HCT 33.4 % (34.0-46.0); HGB 10.7 gm/dL (11.4-16.0); Lymphocytes # (A) 0.9 k/uL (1.0-4.8); Lymphocytes % (A) 9 %; MCH 29.3 pg (25.0-35.0); MCHC 32.1 g/dL (31.0-37.0); MCV 91.1 fL (80.0-100.0); Mean Platelet Volume 7.5; Monocytes # (A) 0.5 k/uL (0-1.0); Monocytes % (A) 5 %; Neutrophils # (A) 7.7 k/uL (1.3-7.7); Neutrophils % (A) 82 %; Platelet Count 208 k/uL (150-450); RBC 3.66 m/uL (3.80-5.40); RDW 14.7 % (11.5-15.5); WBC 9.4 k/uL (3.8-10.6)
[2019-03-06 01:38] LABS: Calcium 7.9 mg/dL (8.4-10.2); Potassium 3.5 mmol/L (3.5-5.1)
[2019-03-06] MEDS ORDERED: NITROGLYCERIN SL TABS 0.4 MG TAB SUBLINGUAL PRN (01:43)
[2019-03-06] MEDS: methylPREDNISolone SOD SUCCI 125 MG/2 ML VIAL IV SCH ×3 (03:03→16:49)
[2019-03-06] MEDS: IPRATROPIUM-ALBUTEROL 3 ML NEB INHALATION SCH ×6 (03:48→20:31)
[2019-03-06 06:50] LABS: Basophils % (A) 0 %; Eosinophils % (A) 0 %; HCT 35.3 % (34.0-46.0); HGB 10.9 gm/dL (11.4-16.0); Hypochromasia Slight; Lymphocytes # (A) 0.6 k/uL (1.0-4.8); Lymphocytes % (A) 7 %; MCH 28.5 pg (25.0-35.0); MCHC 30.9 g/dL (31.0-37.0); MCV 92.2 fL (80.0-100.0); Mean Platelet Volume 7.5; Monocytes # (A) 0.2 k/uL (0-1.0); Monocytes % (A) 2 %; Neutrophils # (A) 7.5 k/uL (1.3-7.7); Neutrophils % (A) 89 %; Platelet Count 218 k/uL (150-450); RBC 3.83 m/uL (3.80-5.40); RDW 15.1 % (11.5-15.5); WBC 8.4 k/uL (3.8-10.6)
[2019-03-06 06:52] LABS: Glucose,Whole Blood 158 mg/dL (75-99)
[2019-03-06 07:00] LABS: Potassium 3.3 mmol/L (3.5-5.1)
[2019-03-06] MEDS: LEVOTHYROXINE 25 MCG TAB PO SCH (07:01)
[2019-03-06] MEDS: INSULIN ASPART (NovoLOG) 100 UNIT/ML VIAL SQ SCH ×4 (07:02→20:55)
[2019-03-06] MEDS: SYMBICORT 160-4.5 MCG INHALER INHALATION SCH ×2 (07:45→20:31)
--- NOTE | 2019-03-06 08:00 | HP ---
HISTORY AND PHYSICAL DATE OF SERVICE: 03/06/2019 CHIEF COMPLAINT: Shortness of breath. HISTORY OF PRESENT ILLNESS: This is an 88-year-old woman with a past medical history of multiple medical issues of CHF, hypertension, hyperlipidemia, myocardial infarction, DJD, history of appendectomy, history of CAD, stent, history of anxiety, depression being followed by Dr. Jason Bello in the outpatient setting, apparently living in an [facility] [place]. The patient apparently had a left shoulder dislocation on 03/02/2019, which was treated symptomatically, given Toradol and then subsequently patient went back to the [facility], but the patient came back with complaints of weakness and was diagnosed with pneumonia. The patient is started on oral Levaquin. The patient was monitored closely in [facility] but subsequently the patient developed renal failure. Creatinine steadily increased from 0.8 to 3.6, and the patient also found to have respiratory failure and the patient was given IV fluids. Patient had shortness of breath and the patient was transferred to [facility] for further evaluation as a direct admission at this time. There is no history of any fever or rigors. No history of headache, loss of consciousness, seizures. The most recent chest x-ray which showed some evidence of CHF. The patient is still short of breath. The patient also had acute respiratory failure. The patient is saturating only 93% on 5 L at this time. There is no history of any chest pain, palpitation either. Patient had previous history of CHF. Past medical history of history of CHF, history of hypertension, hyperlipidemia, history of myocardial infarction, history of DJD, history of chronic hypoxic respiratory failure, history of CAD, stent. MEDICATIONS: Home medications are: 1. Nitrostat 0.4 mg sublingual p.r.n. 2. Vitamin D2 fifty thousand p.o. Saturday. 3. ProAir 2 puffs q.6 p.r.n. 4. Zantac 150 mg q.h.s. 5. Melatonin 10 mg q.h.s. 6. Lasix 20 mg p.o. daily. 7. Colace 100 mg p.o. daily. 8. Norvasc 5 mg p.o. daily. 9. Zoloft 200 mg p.o. daily. 10.Potassium 20 mEq p.o. b.i.d. 11.Multivitamin 1 p.o. daily. 12.Losartan/hydrochlorothiazide 100/12.5 one p.o. b.i.d. p.r.n. 13.Synthroid 25 mcg p.o. daily. 14.DuoNeb t.i.d. 15.Neurontin 100 mg p.o. b.i.d. 16.Vitamin B2 one thousand mcg p.o. daily. 17.Plavix 75 mg p.o. daily. 18.Lipitor 40 mg q.h.s. 19.Ecotrin 81 mg p.o. daily. 20.Cordarone 200 mg p.o. daily. 21.Tylenol 320 mg p.o. daily. ALLERGIES: MORPHINE. FAMILY HISTORY: Lung cancer in the family. SOCIAL HISTORY: No history of smoking. Occasional alcohol intake. REVIEW OF SYSTEMS: ENT: Diminished hearing and vision. CARDIOVASCULAR: As mentioned earlier. GI: No nausea. : No dysuria. NERVOUS SYSTEM: No numbness or weakness. ALLERGY: No asthma or hayfever. MUSCULOSKELETAL: As mentioned earlier. RHEUMATOLOGY: Negative. ENDOCRINE: No history of diabetes or hypothyroidism. CONSTITUTIONAL: As mentioned earlier. DERMATOLOGY: Negative. PSYCHIATRY: As mentioned earlier. PHYSICAL EXAM: Alert and oriented x3. Pulse is 75, blood pressure 102/60, respiration 18, temperature is 98.5, pulse ox 98% on 5 L. HEENT: Conjunctivae normal. Oral mucosa moist. NECK: Jugular shunt ruled out. CARDIOVASCULAR SYSTEM: S1, S2, muffled, no S3, no S4. RESPIRATION: Breath sounds diminished at the bases, bilateral scattered rhonchi, no crackles. Expiratory wheezing and significantly prolonged expiration. Breathing efforts are markedly increased. Increased laxity of muscles, respiration acting. ABDOMEN: Soft, scaphoid nontender, no mass palpable. LEGS: No edema, no swelling. NERVOUS SYSTEM: Higher functions as mentioned earlier, moves on 4 limbs, mild diffuse weakness. LYMPHATICS: No lymph node enlargement in the head or neck. SKIN: No ulcer, rash or bleeding. JOINTS: No active deformity or arthropathy. Left shoulder dislocation present. Patient also has some confusion. The labs are at this time WBC 9.8, hemoglobin is 10.7, sodium is 130, creatinine is 3.0, calcium is 7.8. ASSESSMENT: 1. Shortness of breath with possible congestive heart failure acute exacerbation with ejection fraction unknown. 2. Acute renal failure, possibly prerenal acute tubular necrosis. 3. Acute hypoxic respiratory failure secondary to congestive heart failure. 4. History of recent pneumonia. 5. Left shoulder dislocation. 6. History of coronary artery disease. 7. History of vitamin D deficiency. 8. Hyperlipidemia. 9. History of anxiety, depression. 10.Hypothyroidism. 11.Chronic hypoxic respiratory failure, on home O2. 12.History of coronary artery disease, stent. 13.History of pacemaker. RECOMMENDATIONS: This is an 88-year-old woman who presented with multiple complex medical issues. Otherwise, at this time I recommend continue the current management and symptomatic treatment. I would recommend continue with the bronchodilators. Will obtain a Cardiology and Pulmonology consultations. Otherwise, a 2D echo will be ordered. Empiric antibiotics also will be provided. Prognosis extremely guarded because of multiple complex medical issues. Further recommendations to follow. MMBUBBAL / EKNDRICKN: [id number] /
--- NOTE | 2019-03-06 08:49 | P.CRDCN ---
History of Present Illness Consult date: 03/06/19 Requesting physician: Teo Acosta Consult reason: shortness of breath Chief complaint: Left shoulder dislocation History of present illness: This is a pleasant 88-year-old female who follows with Dr. Cifuentes in the office she has a known history of hypertension, coronary artery disease with prior PCI, most recent stent placement was in May 2018 at which time patient underwent stenting of the LAD, prior pacemaker implantation, hypertension, hyperlipidemia, history of degenerative joint disease, who resides [facility] an [facility], patient has been having a left shoulder d iscomfort, was treated on March 02 symptomatically, given Toradol and subsequently went back to the [facility], she again re-presented back to the hospital, had her dislocated shoulder replaced, and was also started on Levaquin for suspected pneumonia. Patient had been complaining of weakness, had apparently been having fevers as well. She presented to [facility], again diagnosed with pneumonia, subsequently developed renal failure, creatinine steadily increased from 0.8-3.6, patient was also found to be in respiratory failure. Because of the worsening renal function and associated shortness of breath and respiratory failure patient was transferred to [facility] for further evaluation. EKG performed at [facility] showed a normal sinus rhythm with nonspecific ST-T wave changes. Blood pressure 106/60, heart rate in the 60s, temperature 99.5. White blood cell count 8.4, hemoglobin 10.9, platelet count 218. Sodium 140, potassium 3.3, BUN 47 and 3.04 yesterday, 44 and 2.9 this morning. Troponins are negative. BNP level 701. At the time of my examination this morning, patient is complaining of feeling extremely weak, she's also complaining of feeling short of breath. Low-grade temperature this morning. Past Medical History Past Medical History: Heart Failure, Hyperlipidemia, Hypertension, Myocardial Infarction (OR), Musculoskeletal Disorder, Osteoarthritis (OA) Additional Past Medical History / Comment(s): worsening SOB w/exertion, frequent fatigue, uses oxygen @2l @[facility] & sometimes during the day depending on sats., occasional stool incontinence, urinary incontinence, fell & dislocated left shoulder in February 2018-no surgery but limited mobility w/it. Last Myocardial Infarction Date:: unknown History of Any Multi-Drug Resistant Organisms: None Reported Past Surgical History: Appendectomy, Heart Catheterization With Stent, Pacemaker, Tonsillectomy Additional Past Surgical History / Comment(s): PCI/stents with last stent placed 06/26/18, pacemaker placed in 2008 and battery recently tested, colonoscopy- normal, bilateral cataract removals. Past Anesthesia/Blood Transfusion Reactions: No Reported Reaction Date of Last Stent Placement:: 2007 Type of Cardiac Device: Permanent Pacemaker Device Placement Date:: 08-10-14 Past Psychological History: Anxiety, Depression Additional Psychological History / Comment(s): patient is in assisted living facility. Pt no longer drives,She uses a cane/walker to ambulate. She wears home O2 2 L prn. Smoking Status: Never smoker Past Alcohol Use History: Occasional Additional Past Alcohol Use History / Comment(s): Patient is a lifelong nonsmoker. No marijuana or illicit drug use. No alcohol use. Past Drug Use History: None Reported - Past Family History Father Family Medical History: Cancer Additional Family Medical History / Comment(s): Lung cancer Mother Family Medical History: Coronary Artery Disease (CAD), CVA/TIA Brother(s) Additional Family Medical History / Comment(s): Patient has one brother has passed but she does not know etiology. Sister(s) Additional Family Medical History / Comment(s): Patient is a total of 3 sisters. One has history of coronary artery disease and stroke. One has passed but patient does not know etiology. One sister has no major medical problems. Son(s) Additional Family Medical History / Comment(s): Patient has 2 stents. One son has Parkinson's and one son has coronary artery disease. Medications and Allergies Home Medications Medication Instructions Recorded Confirmed Type Amiodarone [Cordarone] 200 mg PO DAILY 06/24/18 03/05/19 History Atorvastatin [Lipitor] 40 mg PO HS 06/24/18 03/05/19 History Clopidogrel [Plavix] 75 mg PO DAILY 06/24/18 03/05/19 History Cyanocobalamin (Vitamin B-12) 1,000 mcg PO DAILY 06/24/18 03/05/19 History [Vitamin B-12] Ergocalciferol (Vitamin D2) 50,000 unit PO WE 06/24/18 03/05/19 History [Vitamin D2] Furosemide [Lasix] 20 mg PO DAILY 06/24/18 03/05/19 History Losartan/Hydrochlorothiazide 1 tab PO DIRECTED 06/24/18 03/05/19 History [Losartan-Hctz 100-12.5 mg Tab] Multivit with Calcium,Iron,Min 1 tab PO DAILY 06/24/18 03/05/19 History [Women's Multivitamin] Sertraline [Zoloft] 100 mg PO DAILY 06/24/18 03/05/19 History Gabapentin [Neurontin] 100 mg PO BID #6 cap 11/18/18 03/05/19 Rx Ipratropium-Albuterol Nebulize 3 ml INHALATION RT-TID ampul.neb 11/18/18 03/05/19 Rx [Duoneb 0.5 mg-3 mg/3 ml Soln] Acetaminophen Tab [Tylenol Tab] 325 mg PO DAILY 02/10/19 03/05/19 History Aspirin EC [Ecotrin Low Dose] 81 mg PO DAILY 02/10/19 03/05/19 History Levothyroxine Sodium [Synthroid] 25 mcg PO DAILY 02/10/19 03/05/19 History Nitroglycerin Sl Tabs [Nitrostat] 0.4 mg SUBLINGUAL Q5M PRN 02/10/19 03/05/19 History Potassium Chloride Oral Liquid 20 meq PO BID 02/10/19 03/05/19 History amLODIPine [Norvasc] 5 mg PO DAILY 02/10/19 03/05/19 History Albuterol Sulfate [Proair Hfa] 2 puff INHALATION RT-Q6H PRN 03/05/19 03/05/19 History Docusate [Colace] 100 mg PO BID 03/05/19 03/05/19 History Melatonin 10 mg PO HS 03/05/19 03/05/19 History Ranitidine HCl [Zantac] 150 mg PO HS 03/05/19 03/05/19 History Allergies Allergy/AdvReac Type Severity Reaction Status Date / Time morphine AdvReac Nausea & Verified 03/05/19 22:39 Vomiting Physical Exam Vitals: Vital Signs Temp Pulse Pulse Resp BP Pulse Ox 03/06/19 07:59 68 03/06/19 07:46 68 03/06/19 04:00 18 03/06/19 03:58 64 03/06/19 03:55 97 03/06/19 03:48 66 03/06/19 03:03 99.0 F 71 18 107/69 93 L 03/05/19 22:03 99.5 F 75 18 102/68 93 L Intake and Output 03/05/19 03/06/19 03/06/19 22:59 06:59 14:59 Other: Voiding Method Incontinent # Voids 1 2 Weight 87.2 kg 87.2 kg PHYSICAL EXAMINATION: GENERAL: 88 stroke female in no acute distress at the time of my examination HEENT: Head is atraumatic, normocephalic. Pupils equal, round. Sclera anicteric. Conjunctiva are clear. Mucous membranes of the mouth are moist. Neck is supple. There is elevated jugular venous pressure. No carotid] bruit is heard. HEART EXAMINATION: S1 S2 1 systolic murmur is heard CHEST EXAMINATION: Lungs reveal scattered coarse rhonchi throughout ABDOMEN: Soft, nontender. Bowel sounds are heard. No organomegaly noted. EXTREMITIES: 2+ peripheral pulses with 1+ no evidence of peripheral edema and no calf tenderness noted. NEUROLOGIC patient is awake, alert and oriented 3 . . Results 03/06/19 06:21 03/06/19 06:21 Cardiac Enzymes 03/06/19 03/06/19 Range/Units 00:49 06:21 Troponin I <0.012 <0.012 (0.000-0.034) ng/mL CBC 03/06/19 03/06/19 Range/Units 00:49 06:21 WBC 9.4 8.4 (3.8-10.6) k/uL RBC 3.66 L 3.83 (3.80-5.40) m/uL Hgb 10.7 L 10.9 L (11.4-16.0) gm/dL Hct 33.4 L 35.3 (34.0-46.0) % Plt Count 208 218 (150-450) k/uL Comprehensive Metabolic Panel 03/06/19 03/06/19 Range/Units 00:49 06:21 Sodium 136 L 140 (137-145) mmol/L Potassium 3.5 3.3 L (3.5-5.1) mmol/L Chloride 99 101 (98-107) mmol/L Carbon Dioxide 28 28 (22-30) mmol/L BUN 47 H 44 H (7-17) mg/dL Creatinine 3.04 H 2.91 H (0.52-1.04) mg/dL Glucose 127 H 142 H (74-99) mg/dL Calcium 7.9 L 8.0 L (8.4-10.2) mg/dL Current Medications Generic Name Dose Route Start Last Admin Trade Name Umang PRN Reason Stop Dose Admin Acetaminophen 325 mg 03/06/19 09:00 Tylenol Tab PO DAILY [facility] Albuterol/Ipratropium 3 ml 03/06/19 00:18 03/06/19 07:45 Duoneb 0.5 Mg-3 Mg/3 Ml Soln INHALATION 3 ml RT-Q4H JORDYN Administration Amiodarone HCl 200 mg 03/06/19 09:00 Cordarone PO DAILY [facility] Aspirin 81 mg 03/06/19 09:00 Aspirin PO DAILY [facility] Atorvastatin Calcium 40 mg 03/06/19 00:15 03/06/19 00:50 Lipitor PO Not Given HS [facility] Budesonide/Formoterol Fumarate 2 puff 03/06/19 08:00 03/06/19 07:45 Symbicort 160-4.5 Mcg Inhaler INHALATION 2 puff RT-BID [facility] Administration Clopidogrel Bisulfate 75 mg 03/06/19 09:00 Plavix PO DAILY [facility] Cyanocobalamin 1,000 mcg 03/06/19 09:00 Vitamin B-12 PO DAILY [facility] Docusate Sodium 100 mg 03/06/19 00:15 03/06/19 00:50 Colace PO Not Given BID [facility] Ergocalciferol 50,000 unit 03/11/19 09:00 Vitamin D2 PO We@0900 [facility] Gabapentin 100 mg 03/06/19 00:30 03/06/19 00:50 Neurontin PO Not Given BID [facility] Heparin Sodium (Porcine) 5,000 unit 03/06/19 09:00 Heparin SQ Q12HR [facility] Ceftriaxone Sodium 1 gm/ 50 mls @ 100 mls/hr 03/06/19 09:00 Sodium Chloride IVPB Q24HR [facility] Insulin Aspart 0 unit 03/06/19 07:30 03/06/19 07:02 Novolog SQ 1 unit ACHS [facility] Administration Protocol Levothyroxine Sodium 25 mcg 03/06/19 06:30 03/06/19 07:01 Synthroid PO 25 mcg DAILY@0630 [facility] Administration Methylprednisolone Sodium Succinate 60 mg 03/06/19 01:45 03/06/19 03:03 Solu-Medrol IV 60 mg Q6H JORDYN Administration Nitroglycerin 0.4 mg 03/06/19 01:43 Nitrostat SUBLINGUAL Q5M PRN Chest Pain Pantoprazole Sodium 40 mg 03/06/19 09:00 Protonix IVP DAILY JORDYN Sertraline HCl 100 mg 03/06/19 09:00 Zoloft PO DAILY JORDYN Intake and Output 03/05/19 03/06/19 03/06/19 22:59 06:59 14:59 Other: Voiding Method Incontinent # Voids 1 2 Weight 87.2 kg 87.2 kg 03/06/19 06:21 03/06/19 06:21 EKG Interpretations (text) EKG shows a normal sinus rhythm with nonspecific ST-T wave changes Assessment and Plan Plan: Assessment and plan #1 Symptoms of progressive weakness with associated shortness of breath,likely secondary to pneumonia, no clear cut evidence of CHF, BNP 800 #3 hypertension #4 hyperlipidemia #5 coronary artery disease with prior stent placements #6 prior pacemaker implantation #7 hypothyroidism Plan We will obtain an echocardiogram with Doppler study. We will monitor her urine output closely, obtain a pro-calcitonin level and noncontrast CT of the chest. Further recommendations to follow. DNP note has been reviewed, I agree with a documented findings and plan of care. Patient was seen and examined.
[2019-03-06] MEDS ORDERED: POTASSIUM CHLORIDE ER 20 MEQ TAB.ER PO STA (08:56)
--- NOTE | 2019-03-06 08:58 | P.NPCON ---
History of Present Illness - Reason for Consult acute renal failure - History of Present Illness Reason for admission: Acute kidney injury History of present illness: Patient is a 88-year-old female seen in renal consultation for acute kidney injury. Patient's pacing creatinine is near 1 from last week. When patient presented to [facility] her creatinine was 3.6. Patient did receive IV fluids in renal function started to improve. However patient became more dyspneic and was transferred here. Patient is not a reliable historian. She denies any active chest pain or shortness of breath. She denies vomiting or diarrhea. Oral intake is fair. Hemodynamically she stable. Chest x-ray was not suggestive of vascular congestion. Patient has history of coronary disease and had a stent placed to the mid LAD in May 2018. Patient is incontinent. She has been voiding. No hematuria. No edema. Vital signs are stable. General: The patient appeared well nourished and normally developed. HEENT: Head exam is unremarkable. Neck is without jugular venous distension. LUNGS: Breath sounds decreased. HEART: Rate and Rhythm are regular. First and second heart sounds normal. No murmurs, rubs or gallops. ABDOMEN: Abdominal exam reveals normal bowel sounds. Non-tender and non-distended. No evidence of peritonitis. EXTREMITITES: No clubbing, cyanosis, or edema. Past Medical History Past Medical History: Heart Failure, Hyperlipidemia, Hypertension, Myocardial Infarction ([place]), Musculoskeletal Disorder, Osteoarthritis (OA) Additional Past Medical History / Comment(s): worsening SOB w/exertion, frequent fatigue, uses oxygen @2l @[facility] & sometimes during the day depending on sats., occasional stool incontinence, urinary incontinence, fell & dislocated left shoulder in February 2018-no surgery but limited mobility w/it. Last Myocardial Infarction Date:: unknown History of Any Multi-Drug Resistant Organisms: None Reported Past Surgical History: Appendectomy, Heart Catheterization With Stent, Pacemaker, Tonsillectomy Additional Past Surgical History / Comment(s): PCI/stents with last stent placed 06/26/18, pacemaker placed in 2008 and battery recently tested, colonoscopy- normal, bilateral cataract removals. Past Anesthesia/Blood Transfusion Reactions: No Reported Reaction Date of Last Stent Placement:: 2007 Type of Cardiac Device: Permanent Pacemaker Device Placement Date:: 08-10-14 Past Psychological History: Anxiety, Depression Additional Psychological History / Comment(s): patient is in assisted living facility. Pt no longer drives,She uses a cane/walker to ambulate. She wears home O2 2 L prn. Smoking Status: Never smoker Past Alcohol Use History: Occasional Additional Past Alcohol Use History / Comment(s): Patient is a lifelong nonsmoker. No marijuana or illicit drug use. No alcohol use. Past Drug Use History: None Reported - Past Family History Father Family Medical History: Cancer Additional Family Medical History / Comment(s): Lung cancer Mother Family Medical History: Coronary Artery Disease (CAD), CVA/TIA Brother(s) Additional Family Medical History / Comment(s): Patient has one brother has pass ed but she does not know etiology. Sister(s) Additional Family Medical History / Comment(s): Patient is a total of 3 sisters. One has history of coronary artery disease and stroke. One has passed but patient does not know etiology. One sister has no major medical problems. Son(s) Additional Family Medical History / Comment(s): Patient has 2 stents. One son has Parkinson's and one son has coronary artery disease. Medications and Allergies Home Medications Medication Instructions Recorded Confirmed Type Amiodarone [Cordarone] 200 mg PO DAILY 06/24/18 03/05/19 History Atorvastatin [Lipitor] 40 mg PO HS 06/24/18 03/05/19 History Clopidogrel [Plavix] 75 mg PO DAILY 06/24/18 03/05/19 History Cyanocobalamin (Vitamin B-12) 1,000 mcg PO DAILY 06/24/18 03/05/19 History [Vitamin B-12] Ergocalciferol (Vitamin D2) 50,000 unit PO WE 06/24/18 03/05/19 History [Vitamin D2] Furosemide [Lasix] 20 mg PO DAILY 06/24/18 03/05/19 History Losartan/Hydrochlorothiazide 1 tab PO DIRECTED 06/24/18 03/05/19 History [Losartan-Hctz 100-12.5 mg Tab] Multivit with Calcium,Iron,Min 1 tab PO DAILY 06/24/18 03/05/19 History [Women's Multivitamin] Sertraline [Zoloft] 100 mg PO DAILY 06/24/18 03/05/19 History Gabapentin [Neurontin] 100 mg PO BID #6 cap 11/18/18 03/05/19 Rx Ipratropium-Albuterol Nebulize 3 ml INHALATION RT-TID ampul.neb 11/18/18 03/05/19 Rx [Duoneb 0.5 mg-3 mg/3 ml Soln] Acetaminophen Tab [Tylenol Tab] 325 mg PO DAILY 02/10/19 03/05/19 History Aspirin EC [Ecotrin Low Dose] 81 mg PO DAILY 02/10/19 03/05/19 History Levothyroxine Sodium [Synthroid] 25 mcg PO DAILY 02/10/19 03/05/19 History Nitroglycerin Sl Tabs [Nitrostat] 0.4 mg SUBLINGUAL Q5M PRN 02/10/19 03/05/19 History Potassium Chloride Oral Liquid 20 meq PO BID 02/10/19 03/05/19 History amLODIPine [Norvasc] 5 mg PO DAILY 02/10/19 03/05/19 History Albuterol Sulfate [Proair Hfa] 2 puff INHALATION RT-Q6H PRN 03/05/19 03/05/19 History Docusate [Colace] 100 mg PO BID 03/05/19 03/05/19 History Melatonin 10 mg PO HS 03/05/19 03/05/19 History Ranitidine HCl [Zantac] 150 mg PO HS 03/05/19 03/05/19 History Allergies Allergy/AdvReac Type Severity Reaction Status Date / Time morphine AdvReac Nausea & Verified 03/05/19 22:39 Vomiting Physical Exam Vitals: Vital Signs Temp Pulse Pulse Resp BP Pulse Ox 03/06/19 07:59 68 03/06/19 07:46 68 03/06/19 04:00 18 03/06/19 03:58 64 03/06/19 03:55 97 03/06/19 03:48 66 03/06/19 03:03 99.0 F 71 18 107/69 93 L 03/05/19 22:03 99.5 F 75 18 102/68 93 L Intake and Output 03/05/19 03/06/19 03/06/19 22:59 06:59 14:59 Other: Voiding Method Incontinent # Voids 1 2 Weight 87.2 kg 87.2 kg Results - Lab Results Most recent lab results Calcium 8.0 mg/dL (8.4-10.2) L 03/06/19:21 03/06/19 06:21 03/06/19 06:21 Assessment and Plan Plan: Assessment: 1. Acute kidney injury mostly prerenal secondary to intravascular volume depletion from diuretics and further worsened with the use of losartan. Creatinine was 3.6 at [facility] and is 2.91 today. Baseline creatinine near 1. Rule out urinary retention. 2. Hypokalemia from poor oral intake. Rule out magnesium deficiency. 3. History of coronary artery disease status post stenting of the LAD in May 2018. 4. Acute hypoxic respiratory failure. Doubt CHF as no evidence of vascular congestion on chest x-ray. Currently on IV steroids and bronchodilator therapy. Plan: Start normal saline at 50 mL an hour. Continue to hold diuretics. Replace potassium. 40 mEq today. Check magnesium level. Check urinalysis. Check renal ultrasound. Check bladder scan to make sure no underlying urinary retention. Follow-up echocardiogram. Repeat electrolytes in the morning. Thank you for the consultation. I will continue to follow the patient with you during her hospital stay.
[2019-03-06] MEDS ORDERED: NON-FORMULARY DRUG (Multivit With Calcium,Iron,Min [Women's Multivitamin] 1 TAB) PO SCH (09:00)
[2019-03-06] MEDS ORDERED: PANTOPRAZOLE 40 MG/10 ML VIAL IVP SCH (09:00)
--- NOTE | 2019-03-06 09:12 | P.CNPUL ---
History of Present Illness Consult date: 03/06/19 Reason for consult: dyspnea, cough Chief complaint: Shortness of breath cough, recent pneumonia History of present illness: 88-year-old female who was seen evaluated examined on medical floor patient has a complex history of coronary artery disease hypertension hypertensive cardiovascular disease, she presented at [facility] with a diagnosis of pneumonia developed acute renal failure and worsening of renal function patient was transferred over here, review of the data reveals that she has a known history of hypertension, coronary artery disease with prior PCI, most recent stent placement was in May 2018 at which time patient underwent stenting of the LAD, prior pacemaker implantation, hypertension, hyperlipidemia, history of degenerative joint disease, who resides at an adult foster [facility], patient has been having a left shoulder discomfort, was treated on March 02 symptomatically, given Toradol and subsequently went back to the adult foster [facility], she again re-presented back to the hospital, had her dislocated shoulder replaced, and was also started on Levaquin for suspected pneumonia. Patient had been complaining of weakness, had apparently been having fevers as well. She presented to [facility], again diagnosed with pneumonia, subsequently developed renal failure, creatinine steadily increased from 0.8- 3.6, patient was also found to be in respiratory failure. Because of the worsening renal function and associated shortness of breath and respiratory failure patient was transferred to [facility] for further evaluation. EKG performed at [facility] showed a normal sinus rhythm with nonspecific ST- T wave changes. The chest x-ray performed over here at [facility] no pneumonia is seen, labs reviewed white cell count is normal protection was slightly low, BUN/creatinine has improved to 44 and 2.1 Review of Systems All systems: negative Past Medical History Past Medical History: Heart Failure, Hyperlipidemia, Hypertension, Myocardial Infarction ([place]), Musculoskeletal Disorder, Osteoarthritis (OA) Additional Past Medical History / Comment(s): worsening SOB w/exertion, frequent fatigue, uses oxygen @2l @[facility] & sometimes during the day depending on sats., oc casional stool incontinence, urinary incontinence, fell & dislocated left shoulder in February 2018-no surgery but limited mobility w/it. Last Myocardial Infarction Date:: unknown History of Any Multi-Drug Resistant Organisms: None Reported Past Surgical History: Appendectomy, Heart Catheterization With Stent, Pacemaker, Tonsillectomy Additional Past Surgical History / Comment(s): PCI/stents with last stent placed 06/26/18, pacemaker placed in 2008 and battery recently tested, colonoscopy- normal, bilateral cataract removals. Past Anesthesia/Blood Transfusion Reactions: No Reported Reaction Date of Last Stent Placement:: 2007 Type of Cardiac Device: Permanent Pacemaker Device Placement Date:: 08-10-14 Past Psychological History: Anxiety, Depression Additional Psychological History / Comment(s): patient is in assisted living facility. Pt no longer drives,She uses a cane/walker to ambulate. She wears home O2 2 L prn. Smoking Status: Never smoker Past Alcohol Use History: Occasional Additional Past Alcohol Use History / Comment(s): Patient is a lifelong nonsmoker. No marijuana or illicit drug use. No alcohol use. Past Drug Use History: None Reported - Past Family History Father Family Medical History: Cancer Additional Family Medical History / Comment(s): Lung cancer Mother Family Medical History: Coronary Artery Disease (CAD), CVA/TIA Brother(s) Additional Family Medical History / Comment(s): Patient has one brother has passed but she does not know etiology. Sister(s) Additional Family Medical History / Comment(s): Patient is a total of 3 sisters. One has history of coronary artery disease and stroke. One has passed but patient does not know etiology. One sister has no major medical problems. Son(s) Additional Family Medical History / Comment(s): Patient has 2 stents. One son has Parkinson's and one son has coronary artery disease. Medications and Allergies Home Medications Medication Instructions Recorded Confirmed Type Amiodarone [Cordarone] 200 mg PO DAILY 06/24/18 03/05/19 History Atorvastatin [Lipitor] 40 mg PO HS 06/24/18 03/05/19 History Clopidogrel [Plavix] 75 mg PO DAILY 06/24/18 03/05/19 History Cyanocobalamin (Vitamin B-12) 1,000 mcg PO DAILY 06/24/18 03/05/19 History [Vitamin B-12] Ergocalciferol (Vitamin D2) 50,000 unit PO WE 06/24/18 03/05/19 History [Vitamin D2] Furosemide [Lasix] 20 mg PO DAILY 06/24/18 03/05/19 History Losartan/Hydrochlorothiazide 1 tab PO DIRECTED 06/24/18 03/05/19 History [Losartan-Hctz 100-12.5 mg Tab] Multivit with Calcium,Iron,Min 1 tab PO DAILY 06/24/18 03/05/19 History [Women's Multivitamin] Sertraline [Zoloft] 100 mg PO DAILY 06/24/18 03/05/19 History Gabapentin [Neurontin] 100 mg PO BID #6 cap 11/18/18 03/05/19 Rx Ipratropium-Albuterol Nebulize 3 ml INHALATION RT-TID ampul.neb 11/18/18 03/05/19 Rx [Duoneb 0.5 mg-3 mg/3 ml Soln] Acetaminophen Tab [Tylenol Tab] 325 mg PO DAILY 02/10/19 03/05/19 History Aspirin EC [Ecotrin Low Dose] 81 mg PO DAILY 02/10/19 03/05/19 History Levothyroxine Sodium [Synthroid] 25 mcg PO DAILY 02/10/19 03/05/19 History Nitroglycerin Sl Tabs [Nitrostat] 0.4 mg SUBLINGUAL Q5M PRN 02/10/19 03/05/19 History Potassium Chloride Oral Liquid 20 meq PO BID 02/10/19 03/05/19 History amLODIPine [Norvasc] 5 mg PO DAILY 02/10/19 03/05/19 History Albuterol Sulfate [Proair Hfa] 2 puff INHALATION RT-Q6H PRN 03/05/19 03/05/19 History Docusate [Colace] 100 mg PO BID 03/05/19 03/05/19 History Melatonin 10 mg PO HS 03/05/19 03/05/19 History Ranitidine HCl [Zantac] 150 mg PO HS 03/05/19 03/05/19 History Allergies Allergy/AdvReac Type Severity Reaction Status Date / Time morphine AdvReac Nausea & Verified 03/05/19 22:39 Vomiting Physical Exam Vitals: Vital Signs Temp Pulse Pulse Resp BP Pulse Ox 03/06/19 07:59 68 03/06/19 07:46 68 03/06/19 04:00 18 03/06/19 03:58 64 03/06/19 03:55 97 03/06/19 03:48 66 03/06/19 03:03 99.0 F 71 18 107/69 93 L 03/05/19 22:03 99.5 F 75 18 102/68 93 L Intake and Output 03/05/19 03/06/19 03/06/19 22:59 06:59 14:59 Other: Voiding Method Incontinent # Voids 1 2 Weight 87.2 kg 87.2 kg - Constitutional General appearance: average body habitus, disheveled, mild distress - EENT Eyes: EOMI, PERRLA Ears: bilateral: normal - Neck Neck: normal ROM Carotids: bilateral: upstroke normal, bruit absent - Respiratory Respiratory: bilateral: diminished, rales, negative: dullness, rhonchi, wheezing - Cardiovascular Rhythm: regular Heart sounds: normal: S1, S2 - Gastrointestinal General gastrointestinal: decreased bowel sounds, distended, soft - Integumentary Integumentary: decreased turgor - Musculoskeletal Musculoskeletal: generalized weakness, strength equal bilaterally - Psychiatric Psychiatric: A&O x's 3, appropriate affect Results - Laboratory Findings CBC and BMP: 03/06/19 06:21 03/06/19 06:21 Abnormal lab findings: Abnormal Labs 03/06/19 03/06/19 03/06/19 00:49 00:49 06:21 RBC 3.66 L Hgb 10.7 L 10.9 L Hct 33.4 L MCHC 30.9 L Lymphocytes # 0.9 L 0.6 L Sodium 136 L Potassium BUN 47 H Creatinine 3.04 H Glucose 127 H POC Glucose (mg/dL) Calcium 7.9 L 03/06/19 03/06/19 06:21 06:51 RBC Hgb Hct MCHC Lymphocytes # Sodium Potassium 3.3 L BUN 44 H Creatinine 2.91 H Glucose 142 H POC Glucose (mg/dL) 158 H Calcium 8.0 L Assessment and Plan Assessment: Acute renal failure likely related to acute tubular necrosis versus drug related due to Toradol and intravascular volume depletion dehydration Pneumonia clinically and radiographically appears to have improved Generalized weakness related to multifactorial processes including renal failure heart failure Likely acute on chronic systolic heart failure echo pending Plan: Agree with IV Rocephin for now Gentle rehydration DVT and peptic ulcer disease prophylaxis Monitor labs electrolytes closely Recommend PT and OT Further recommendations pending plan of care as per clinical response of the patient UA and C&S Time with Patient: Greater than 30
--- NOTE | 2019-03-06 09:53 | US ---
EXAMINATION TYPE: US kidneys/renal and bladder DATE OF EXAM: 03/06/2019 COMPARISON: NONE CLINICAL HISTORY: fide. FIDE, exam done portable. EXAM MEASUREMENTS: Right Kidney: 9.9 x 4.4 x 5.1 cm Left Kidney: 10.5 x 5.1 x 4.9 cm Limited study due to patient body habitus Right Kidney: no hydronephrosis or masses seen Left Kidney: no hydronephrosis or masses seen Bladder: wnl Bilateral Jets seen: no There is no evidence for hydronephrosis at this point in time. No nephrolithiasis is seen. No cameron s are identified. The urinary bladder is anechoic. Bilateral ureteral jets are not seen. IMPRESSION: Exam is slightly limited secondary to patient body habitus however no evidence of hydrone phrosis or gross evidence of nephrolithiasis is seen within either kidney. No sonographic sequela of medical renal disease.
[2019-03-06] MEDS: SODIUM CHLORIDE 0.9% 1,000 ML IV SCH (10:30)
[2019-03-06] MEDS: CLOPIDOGREL 75 MG TAB PO SCH (10:31)
[2019-03-06] MEDS: SERTRALINE 100 MG TAB PO SCH (10:31)
[2019-03-06] MEDS: ASPIRIN 81 MG PO SCH (10:31)
[2019-03-06] MEDS: CYANOCOBALAMIN 500 MCG TAB PO SCH (10:31)
[2019-03-06] MEDS: AMIODARONE 200 MG TAB PO SCH (10:31)
[2019-03-06] MEDS: ACETAMINOPHEN TAB 325 MG TAB PO SCH (10:31)
[2019-03-06] MEDS: HEPARIN SODIUM,PORCINE 5,000 UNIT/ML 1 ML VIAL SQ SCH ×2 (10:32→20:49)
--- NOTE | 2019-03-06 11:15 | ECHOF ---
Referral Reason:CHF MEASUREMENTS -------- HEIGHT: 157.5 cm WEIGHT: 87.1 kg BP: 107/69 RVIDd: 3.5 cm (< 3.3) IVSd: 1.5 cm (0.6 - 1.1) LVIDd: 4.0 cm (3.9 - 5.3) LVPWd: 1.4 cm (0.6 - 1.1) IVSs: 2.1 cm LVIDs: 3.0 cm LVPWs: 1.5 cm LAESV Index (A-L): 20.26 ml/m Ao Diam: 3.5 cm (2.0 - 3.7) AV Cusp: 2.1 cm (1.5 - 2.6) LA Diam: 3.8 cm (2.7 - 3.8) MV EXCURSION: 15.618 mm (> 18.000) MV EF SLOPE: 81 mm/s (70 - 150) EPSS: 0.7 cm MV E Herman: 1.28 m/s MV DecT: 197 ms MV A Herman: 0.96 m/s MV E/A Ratio: 1.33 RAP: 5.00 mmHg RVSP: 36.15 mmHg FINDINGS -------- Sinus rhythm. This was a technically difficult study with suboptimal views. The left ventricular size is normal. There is moderate concentric left ventricular hypertrophy. O verall left ventricular systolic function is low-normal with, an EF between 50 - 55 %. The right ventricle is mildly enlarged. Normal LA size by volume 22+/-6 ml/m2. The right atrial size is normal. Lumason used Interatrial and interventricular septum intact. Aortic valve is trileaflet and is mildly thickened. The mitral valve leaflets are mildly thickened. Mild mitral regurgitation is present. Mild tricuspid regurgitation present. There is mild pulmonary hypertension. The right ventricular systolic pressure, as measured by Doppler, is 36.15mmHg. There is no pulmonic regurgitation present. The aortic root size is normal. Echo free space indicative of a pericardial fat pad. CONCLUSIONS -------- 1. Sinus rhythm. 2. This was a technically difficult study with suboptimal views. 3. The left ventricular size is normal. 4. There is moderate concentric left ventricular hypertrophy. 5. Overall left ventricular systolic function is low-normal with, an EF between 50 - 55 %. 6. The right ventricle is mildly enlarged. 7. Normal LA size by volume 22+/-6 ml/m2. 8. The right atrial size is normal. 9. Lumason used 10. Interatrial and interventricular septum intact. 11. Aortic valve is trileaflet and is mildly thickened. 12. The mitral valve leaflets are mildly thickened. 13. Mild mitral regurgitation is present. 14. Mild tricuspid regurgitation present. 15. There is mild pulmonary hypertension. 16. The right ventricular systolic pressure, as measured by Doppler, is 36.15mmHg. 17. There is no pulmonic regurgitation present. 18. The aortic root size is normal. 19. Echo free space indicative of a pericardial fat pad. CARTON CATCHER: Concepcion Uriostegui RDCS
--- NOTE | 2019-03-06 11:32 | CT ---
EXAMINATION TYPE: CT chest wo con DATE OF EXAM: 03/06/2019 COMPARISON: Chest x-ray same date HISTORY: Difficulty breathing CT DLP: 474.4 mGycm. Automated Exposure Control for Dose Reduction was Utilized. TECHNIQUE: CT scan of the thorax is performed without IV contrast. FINDINGS: LUNGS: The lungs are remarkable for some minimal consolidation at the posterior lung bases, there is some local air bronchograms. Left upper lobe also shows some increased attenuation adjacent to the ao rta possibly reflecting inflammatory change Calcified granuloma present. There is no pleural effusion or pneumothorax seen. The tracheobronchial tree is patent. There are some interstitial changes with in the lungs with thickening and interlobular septal pleural lines. May be some apical scarring. MEDIASTINUM: Lack of IV contrast is noted to limit evaluation for mediastinal and especially hilar ad enopathy. There are no definitive greater than 1 cm hilar or mediastinal lymph nodes. There are exte nsive coronary artery calcifications. Intracardiac leads are present. Calcified mediastinal nodes are present. The heart is mildly enlarged. No pericardial effusion is seen. OTHER: Suspect a small hiatal hernia, there is thickening of the distal esophagus possibly due to eso phagitis. Proximal descending aorta is ectatic and 3 cm. Calcifications also present within the splee n. Patient is post cholecystectomy. IMPRESSION: Some airlessness within the lungs especially at the bases with air bronchograms could rep resent pneumonia. Coronary artery disease and additional findings above. Follow-up suggested.
[2019-03-06 11:58] LABS: Glucose,Whole Blood 181 mg/dL (75-99)
--- NOTE | 2019-03-06 16:28 | PN ---
PROGRESS NOTE DATE OF SERVICE: 03/06/2019. This 88-year-old woman who was admitted with shortness of breath also had CHF acute exacerbation. The 2D echo was done which showed ejection fraction about 50-55 percent. The patient being closely monitored at this time. Pulmonary consultation and cardiology consultation. Nephrology consultation is in progress. A CT scan of the chest was done showed some possible pneumonia. Otherwise, the creatinine is also still elevated at 2.9 at this time from 3.04. Glucose elevated 142. There is no history of fever, rigors or chills. PAST MEDICAL HISTORY: Reviewed. REVIEW OF SYSTEMS: CARDIOVASCULAR: No angina. RESPIRATIONS: As mentioned earlier. GASTROINTESTINAL: As mentioned earlier. : No dysuria. CENTRAL NERVOUS SYSTEM: No numbness or weakness. CURRENT MEDICATIONS: Reviewed and include: 1. Tylenol 320 mg p.o. daily. 2. DuoNeb q.i.d. and p.r.n. 3. Cordarone 200 mg p.o. daily. 4. Aspirin 81 mg daily. 5. Lipitor 40 mg q.h.s. 6. Symbicort 160/4.5 two puffs b.i.d. 7. Omnicef 300 mg p.o. daily. 8. Plavix 75 mg p.o. daily. 9. Vitamin B12 1000 mcg p.o. daily. 10.Colace 100 mg p.o. b.i.d. 11.Vitamin D2 50,000 weekly. 12.Neurontin 100 mg p.o. b.i.d. 13.Heparin 5000 subcu b.i.d. 14.NovoLog scale. 15.Synthroid 25 mcg p.o. daily. 16.Solu-Medrol 60 IV q.6h. 17.Nitrostat 0.4 sublingual p.r.n. 18.Protonix 40 mg p.r.n. 19.Zoloft 100 mg p.o. daily. PHYSICAL EXAM: Patient is alert, oriented x3, pulse 70, blood pressure 98/52, respirations 20, temperature 98.7, pulse ox 97% on 5 L. HEENT is conjunctivae normal. NECK: No jugular venous distention. CARDIOVASCULAR: S1, S2 muffled. RESPIRATORY: Breath sounds diminished in the bases. A few scattered rhonchi and crackles. Breathing efforts are markedly increased. ABDOMEN: Soft, obese, nontender. LEGS: Bilateral leg edema. NERVOUS SYSTEM: No focal deficits. LAB STUDIES: WBC 8.3, hemoglobin 10.9, sodium 140, potassium 3.3, creatinine is 2.91. ASSESSMENT: 1. Shortness of breath, possible congestive heart failure acute exacerbation with acute on chronic diastolic dysfunction, ejection fraction 50-55 percent. 2. Acute renal failure possibly prerenal acute tubular necrosis. 3. Acute hypoxic respiratory failure secondary to congestive heart failure. 4. History of recent pneumonia. 5. Left shoulder dislocation history recurrent. 6. History of coronary artery disease. 7. History of vitamin D deficiency. 8. Hyperlipidemia. 9. History of anxiety and depression. 10.Hypothyroidism. 11.Chronic hypoxic respiratory failure on home O2. 12.History of coronary artery disease/stent. 13.History of pacemaker. 14.FULL CODE. RECOMMENDATIONS AND DISCUSSION: In this 84-year-old woman who presented with multiple complex medical issues, we will monitor the patient closely. Continue the current medications, management and symptomatic treatment. Continue with careful hydration. Otherwise, we will monitor the patient closely. We will also ensure oxygenation, bronchodilators and rest of medication. CT scan of the chest noted and abdominal pelvis ultrasound was also done which showed no hydronephrosis or gross evidence of any obstruction. Otherwise, I would also check a chest x-ray tomorrow and monitor the fluid and electrolytes balance closely. Prognosis guarded. Further recommendations to follow. ANGY / LITTLE: [id number] /
[2019-03-06 16:55] LABS: Glucose,Whole Blood 212 mg/dL (75-99)
[2019-03-06 17:24] LABS: Appearance,Urine Clear (Clear); Bilirubin,Urine Negative (Negative); Blood,Urine Negative (Negative); Color,Urine Yellow; Glucose,Urine (UA) Negative (Negative); Ketones,Urine Negative (Negative); Leukocyte Esterase,Urine Negative (Negative); Nitrite,Urine Negative (Negative); PH, Urine 5.5 (5.0-8.0); Protein,Urine Trace (Negative); Specific Gravity,Urine 1.018 (1.001-1.035); Urobilinogen,Urine <2.0 mg/dL (<2.0)
[2019-03-06 20:57] LABS: Glucose,Whole Blood 295 mg/dL (75-99)
[2019-03-07] MEDS: IPRATROPIUM-ALBUTEROL 3 ML NEB INHALATION SCH ×6 (00:26→19:08)
[2019-03-07] MEDS: methylPREDNISolone SOD SUCCI 125 MG/2 ML VIAL IV SCH ×5 (01:02→22:08)
[2019-03-07 06:06] LABS: Glucose,Whole Blood 172 mg/dL (75-99)
[2019-03-07] MEDS: LEVOTHYROXINE 25 MCG TAB PO SCH (06:30)
[2019-03-07] MEDS: SODIUM CHLORIDE 0.9% 1,000 ML IV SCH (06:31)
[2019-03-07] MEDS: INSULIN ASPART (NovoLOG) 100 UNIT/ML VIAL SQ SCH ×4 (06:31→20:27)
--- NOTE | 2019-03-07 06:43 | XR ---
EXAMINATION TYPE: XR chest 1V portable DATE OF EXAM: 03/07/2019 HISTORY: chf. REFERENCE: Previous study dated 03/06/2019. FINDINGS: A bipolar pacemaker in place on the left. The heart is mildly enlarged. There is vascular congestion without angelito edema. Both CP angles are bl unted and I could not exclude small effusions. IMPRESSION: 1. MILD CARDIOMEGALY AND VASCULAR CONGESTION. 2. I COULD NOT EXCLUDE SMALL, BILATERAL EFFUSIONS.
[2019-03-07 06:59] LABS: Basophils % (A) 0 %; Eosinophils % (A) 0 %; HCT 34.4 % (34.0-46.0); HGB 10.7 gm/dL (11.4-16.0); Lymphocytes # (A) 0.8 k/uL (1.0-4.8); Lymphocytes % (A) 7 %; MCH 28.2 pg (25.0-35.0); MCHC 31.2 g/dL (31.0-37.0); MCV 90.4 fL (80.0-100.0); Mean Platelet Volume 7.7; Monocytes # (A) 0.4 k/uL (0-1.0); Monocytes % (A) 3 %; Neutrophils # (A) 10.1 k/uL (1.3-7.7); Neutrophils % (A) 88 %; Platelet Count 215 k/uL (150-450); RDW 15.6 % (11.5-15.5); WBC 11.5 k/uL (3.8-10.6)
[2019-03-07 07:17] LABS: Calcium 8.3 mg/dL (8.4-10.2); Potassium 3.9 mmol/L (3.5-5.1)
[2019-03-07] MEDS: SYMBICORT 160-4.5 MCG INHALER INHALATION SCH ×2 (08:15→19:07)
--- NOTE | 2019-03-07 09:58 | P.PN ---
Subjective Patient is seen in follow-up for acute kidney injury. Her baseline creatinine was 1 and was elevated at 3.6 prior to admission. Patient's been maintained on IV fluids and renal function is improving. Patient feels dyspneic this morning. No edema. She is incontinent. She did vomit this morning. No diarrhea. Vital signs are stable. General: The patient appeared well nourished and normally developed. HEENT: Head exam is unremarkable. Neck is without jugular venous distension. LUNGS: Breath sounds decreased. HEART: Rate and Rhythm are regular. First and second heart sounds normal. No murmurs, rubs or gallops. ABDOMEN: Abdominal exam reveals normal bowel sounds. Non-tender and non- distended. No evidence of peritonitis. EXTREMITITES: No clubbing, cyanosis, or edema. Objective - Vital Signs Vital signs: Vital Signs Temp 98.0 F 03/07/19 02:48 Pulse 72 03/07/19 08:15 Resp 18 03/07/19 02:48 BP 115/56 03/07/19 02:48 Pulse Ox 96 03/07/19 02:48 Intake & Output 03/06/19 03/07/19 03/07/19 18:59 06:59 18:59 Intake Total 480 300 120 Output Total 300 Balance 180 300 120 Weight 87.4 kg Intake: Intake, IV Titration 300 Amount Sodium Chloride 0.9% 1, 300 000 ml @ 75 mls/hr IV . [id number] [facility] Rx#:[id number] Oral 480 120 Output: Urine 300 Other: Voiding Method Incontinent Incontinent # Voids 2 - Labs CBC & Chem 7: 03/07/19 06:11 03/07/19 06:11 Labs: Abnormal Lab Results - Last 24 Hours (Table) 03/06/19 03/06/19 03/06/19 Range/Units 06:21 11:34 16:53 WBC (3.8-10.6) k/uL Hgb (11.4-16.0) gm/dL RDW (11.5-15.5) % Neutrophils # (1.3-7.7) k/uL Lymphocytes # (1.0-4.8) k/uL BUN (7-17) mg/dL Creatinine (0.52-1.04) mg/dL Glucose (74-99) mg/dL POC Glucose (mg/dL) 181 H 212 H (75-99) mg/dL Calcium (8.4-10.2) mg/dL Procalcitonin 0.16 H (0.02-0.09) ng/mL Urine Protein (Negative) 03/06/19 03/06/19 03/07/19 Range/Units 17:00 20:55 06:05 WBC (3.8-10.6) k/uL Hgb (11.4-16.0) gm/dL RDW (11.5-15.5) % Neutrophils # (1.3-7.7) k/uL Lymphocytes # (1.0-4.8) k/uL BUN (7-17) mg/dL Creatinine (0.52-1.04) mg/dL Glucose (74-99) mg/dL POC Glucose (mg/dL) 295 H 172 H (75-99) mg/dL Calcium (8.4-10.2) mg/dL Procalcitonin (0.02-0.09) ng/mL Urine Protein Trace H (Negative) 03/07/19 03/07/19 Range/Units 06:11 06:11 WBC 11.5 H (3.8-10.6) k/uL Hgb 10.7 L (11.4-16.0) gm/dL RDW 15.6 H (11.5-15.5) % Neutrophils # 10.1 H (1.3-7.7) k/uL Lymphocytes # 0.8 L (1.0-4.8) k/uL BUN 56 H (7-17) mg/dL Creatinine 1.89 H (0.52-1.04) mg/dL Glucose 153 H (74-99) mg/dL POC Glucose (mg/dL) (75-99) mg/dL Calcium 8.3 L (8.4-10.2) mg/dL Procalcitonin (0.02-0.09) ng/mL Urine Protein (Negative) Microbiology - Last 24 Hours (Table) 03/06/19 06:21 Blood Culture - Preliminary Blood No Growth after 24 hours 03/06/19 17:00 Urine Culture - Preliminary Urine,Catheterized Assessment and Plan Plan: Assessment: 1. Acute kidney injury mostly prerenal secondary to intravascular volume depletion from diuretics and further worsened with the use of losartan. Creatinine was 3.6 at [facility] and is 1.89 today. Baseline creatinine near 1. UA is quite benign. No evidence of hydronephrosis noted on renal ultrasound. 2. Hypokalemia from poor oral intake. Better. 3. History of coronary artery disease status post stenting of the LAD in May 2018. 4. Acute hypoxic respiratory failure. Doubt CHF as no evidence of vascular congestion on chest x-ray. No pleural effusions noted on chest CT. Currently on IV steroids and bronchodilator therapy. Also on antibiotics for possible pneumonia. 5. Diastolic CHF with mild mitral and tricuspid regurgitation. Mild pulmonary hypertension. Plan: I will decrease rate of normal saline to 50 mL an hour. Encourage oral intake. Repeat electrolytes in the morning.
[2019-03-07] MEDS: ASPIRIN 81 MG PO SCH (10:53)
[2019-03-07] MEDS: CYANOCOBALAMIN 500 MCG TAB PO SCH (10:54)
[2019-03-07] MEDS: SERTRALINE 100 MG TAB PO SCH (10:54)
[2019-03-07] MEDS: GABAPENTIN 100 MG CAP PO SCH ×2 (10:54→20:27)
[2019-03-07] MEDS: ACETAMINOPHEN TAB 325 MG TAB PO SCH (10:54)
[2019-03-07] MEDS: CEFDINIR 300 MG CAP PO SCH (10:54)
[2019-03-07] MEDS: DOCUSATE 100 MG CAP PO SCH ×2 (10:54→20:26)
[2019-03-07] MEDS: PANTOPRAZOLE 40 MG TABLET PO SCH (10:54)
[2019-03-07] MEDS: CLOPIDOGREL 75 MG TAB PO SCH (10:55)
[2019-03-07] MEDS: HEPARIN SODIUM,PORCINE 5,000 UNIT/ML 1 ML VIAL SQ SCH ×2 (10:55→20:27)
[2019-03-07] MEDS: AMIODARONE 200 MG TAB PO SCH (10:55)
[2019-03-07 11:50] LABS: Glucose,Whole Blood 201 mg/dL (75-99)
--- NOTE | 2019-03-07 12:38 | P.CNOR ---
History of Present Illness - [facility] Consult date: 03/07/19 Requesting physician: Devin Morgan Consult reason: other History of present illness: Patient is seen at bedside in consultation for history of left shoulder dislocation/instability. She has been seen in our office in the past by Dr. Thorne where he has recommended continue sling and swathe and f/u with [facility] regarding possible shoulder replacement. She has not done so. She has had recurrent dislocation and reduction. She has no pain currently. No numbness or tingling. Review of Systems All systems: negative Constitutional: Denies chills, Denies fever Eyes: denies blurred vision, denies pain Ears, nose, mouth and throat: Denies headache, Denies sore throat Cardiovascular: Denies chest pain, Denies shortness of breath Respiratory: Denies cough Gastrointestinal: Denies abdominal pain, Denies diarrhea, Denies nausea, Denies vomiting Genitourinary: Denies dysuria, Denies hematuria Musculoskeletal: Denies myalgias Integumentary: Denies pruritus, Denies rash Neurological: Denies numbness, Denies weakness Psychiatric: Denies anxiety, Denies depression Endocrine: Denies fatigue, Denies weight change Past Medical History Past Medical History: Heart Failure, Hyperlipidemia, Hypertension, Myocardial Infarction (SD), Musculoskeletal Disorder, Osteoarthritis (OA) Additional Past Medical History / Comment(s): worsening SOB w/exertion, frequent fatigue, uses oxygen @2l @HS & sometimes during the day depending on sats., occasional stool incontinence, urinary incontinence, fell & dislocated left shoulder in February 2018-no surgery but limited mobility w/it. Last Myocardial Infarction Date:: unknown History of Any Multi-Drug Resistant Organisms: None Reported Past Surgical History: Appendectomy, Heart Catheterization With Stent, Pacemaker, Tonsillectomy Additional Past Surgical History / Comment(s): PCI/stents with last stent placed 06/26/18, pacemaker placed in 2008 and battery recently tested, colonoscopy- normal, bilateral cataract removals. Past Anesthesia/Blood Transfusion Reactions: No Reported Reaction Date of Last Stent Placement:: 2007 Type of Cardiac Device: Permanent Pacemaker Device Placement Date:: 08-10-14 Past Psychological History: Anxiety, Depression Additional Psychological History / Comment(s): patient is in assisted living facility. Pt no longer drives,She uses a cane/walker to ambulate. She wears home O2 2 L prn. Smoking Status: Never smoker Past Alcohol Use History: Occasional Additional Past Alcohol Use History / Comment(s): Patient is a lifelong nonsmoker. No marijuana or illicit drug use. No alcohol use. Past Drug Use History: None Reported - Past Family History Father Family Medical History: Cancer Additional Family Medical History / Comment(s): Lung cancer Mother Family Medical History: Coronary Artery Disease (CAD), CVA/TIA Brother(s) Additional Family Medical History / Comment(s): Patient has one brother has passed but she does not know etiology. Sister(s) Additional Family Medical History / Comment(s): Patient is a total of 3 sisters. One has history of coronary artery disease and stroke. One has passed but patient does not know etiology. One sister has no major medical problems. Son(s) Additional Family Medical History / Comment(s): Patient has 2 stents. One son has Parkinson's and one son has coronary artery disease. Medications and Allergies Home Medications Medication Instructions Recorded Confirmed Type Amiodarone [Cordarone] 200 mg PO DAILY 06/24/18 03/05/19 History Atorvastatin [Lipitor] 40 mg PO HS 06/24/18 03/05/19 History Clopidogrel [Plavix] 75 mg PO DAILY 06/24/18 03/05/19 History Cyanocobalamin (Vitamin B-12) 1,000 mcg PO DAILY 06/24/18 03/05/19 History [Vitamin B-12] Ergocalciferol (Vitamin D2) 50,000 unit PO WE 06/24/18 03/05/19 History [Vitamin D2] Furosemide [Lasix] 20 mg PO DAILY 06/24/18 03/05/19 History Losartan/Hydrochlorothiazide 1 tab PO DIRECTED 06/24/18 03/05/19 History [Losartan-Hctz 100-12.5 mg Tab] Multivit with Calcium,Iron,Min 1 tab PO DAILY 06/24/18 03/05/19 History [Women's Multivitamin] Sertraline [Zoloft] 100 mg PO DAILY 06/24/18 03/05/19 History Gabapentin [Neurontin] 100 mg PO BID #6 cap 11/18/18 03/05/19 Rx Ipratropium-Albuterol Nebulize 3 ml INHALATION RT-TID ampul.neb 11/18/18 03/05/19 Rx [Duoneb 0.5 mg-3 mg/3 ml Soln] Acetaminophen Tab [Tylenol Tab] 325 mg PO DAILY 02/10/19 03/05/19 History Aspirin EC [Ecotrin Low Dose] 81 mg PO DAILY 02/10/19 03/05/19 History Levothyroxine Sodium [Synthroid] 25 mcg PO DAILY 02/10/19 03/05/19 History Nitroglycerin Sl Tabs [Nitrostat] 0.4 mg SUBLINGUAL Q5M PRN 02/10/19 03/05/19 History Potassium Chloride Oral Liquid 20 meq PO BID 02/10/19 03/05/19 History amLODIPine [Norvasc] 5 mg PO DAILY 02/10/19 03/05/19 History Albuterol Sulfate [Proair Hfa] 2 puff INHALATION RT-Q6H PRN 03/05/19 03/05/19 History Docusate [Colace] 100 mg PO BID 03/05/19 03/05/19 History Melatonin 10 mg PO HS 03/05/19 03/05/19 History Ranitidine HCl [Zantac] 150 mg PO HS 03/05/19 03/05/19 History Allergies Allergy/AdvReac Type Severity Reaction Status Date / Time morphine AdvReac Nausea & Verified 03/05/19 22:39 Vomiting Physical Examination Inspection shows no deformity. NVI with motor and strength throughout LUE. ROM of shoulder not tested due to instability. 2+ radial pulse intact along with less than 2 sec cap refill. Results CXR shows located left shoulder. - Labs Labs: Abnormal Lab Results - Last 24 Hours (Table) 03/06/19 03/06/19 03/06/19 Range/Units 06:21 16:53 17:00 WBC (3.8-10.6) k/uL Hgb (11.4-16.0) gm/dL RDW (11.5-15.5) % Neutrophils # (1.3-7.7) k/uL Lymphocytes # (1.0-4.8) k/uL BUN (7-17) mg/dL Creatinine (0.52-1.04) mg/dL Glucose (74-99) mg/dL POC Glucose (mg/dL) 212 H (75-99) mg/dL Calcium (8.4-10.2) mg/dL Procalcitonin 0.16 H (0.02-0.09) ng/mL Urine Protein Trace H (Negative) 03/06/19 03/07/19 03/07/19 Range/Units 20:55 06:05 06:11 WBC 11.5 H (3.8-10.6) k/uL Hgb 10.7 L (11.4-16.0) gm/dL RDW 15.6 H (11.5-15.5) % Neutrophils # 10.1 H (1.3-7.7) k/uL Lymphocytes # 0.8 L (1.0-4.8) k/uL BUN (7-17) mg/dL Creatinine (0.52-1.04) mg/dL Glucose (74-99) mg/dL POC Glucose (mg/dL) 295 H 172 H (75-99) mg/dL Calcium (8.4-10.2) mg/dL Procalcitonin (0.02-0.09) ng/mL Urine Protein (Negative) 03/07/19 03/07/19 Range/Units 06:11 11:37 WBC (3.8-10.6) k/uL Hgb (11.4-16.0) gm/dL RDW (11.5-15.5) % Neutrophils # (1.3-7.7) k/uL Lymphocytes # (1.0-4.8) k/uL BUN 56 H (7-17) mg/dL Creatinine 1.89 H (0.52-1.04) mg/dL Glucose 153 H (74-99) mg/dL POC Glucose (mg/dL) 201 H (75-99) mg/dL Calcium 8.3 L (8.4-10.2) mg/dL Procalcitonin (0.02-0.09) ng/mL Urine Protein (Negative) Microbiology - Last 24 Hours (Table) 03/06/19 06:21 Blood Culture - Preliminary Blood No Growth after 24 hours 03/06/19 17:00 Urine Culture - Preliminary Urine,Catheterized H & H 03/06/19 03/06/19 03/07/19 Range/Units 00:49 06:21 06:11 Hgb 10.7 L 10.9 L 10.7 L (11.4-16.0) gm/dL Hct 33.4 L 35.3 34.4 (34.0-46.0) % Result Diagrams: 03/07/19 06:11 03/07/19 06:11 Assessment and Plan (1) Dislocation of shoulder, left, closed Narrative/Plan: Recommended maintaining sling and swathe at all times and stressed importance of it. No immediate surgical intervention planned from orthopedic standpoint. Advised obtaining records and CD of shoulder CT as well as contacting our office Saturday to facilitate referral to [facility] for evaluation and recommendations regarding left shoulder surgery. We will sign off for now. Thank you Current Visit: No Status: Acute Code(s): S43.005A - UNSPECIFIED DISLOCATION OF LEFT SHOULDER JOINT, INIT ENCNTR SNOMED Code(s): 74615552 Time with Patient: Less than 30
--- NOTE | 2019-03-07 12:45 | P.PN ---
Subjective Progress Note Date: 03/07/19 This is a pleasant 88-year-old female who follows with Dr. Cifuentes in the office she has a known history of hypertension, coronary artery disease with prior PCI, most recent stent placement was in May 2018 at which time patient underwent stenting of the LAD, prior pacemaker implantation, hyp ertension, hyperlipidemia, history of degenerative joint disease, who resides at an adult foster group home, patient has been having a left shoulder discomfort, was treated on March 02 symptomatically, given Toradol and subsequently went back to the adult foster group home, she again re-presented back to the hospital, had her dislocated shoulder replaced, and was also started on Levaquin for suspected pneumonia. Patient had been complaining of weakness, had apparently been having fevers as well. She presented to [facility], again diagnosed with pneumonia, subsequently developed renal failure, creatinine steadily increased from 0.8-3.6, patient was also found to be in respiratory failure. Because of the worsening renal function and associated shortness of breath and respiratory failure patient was transferred to [facility] for further evaluation. EKG performed at [facility] showed a normal sinus rhythm with nonspecific ST- T wave changes. Blood pressure 106/60, heart rate in the 60s, temperature 99.5. White blood cell count 8.4, hemoglobin 10.9, platelet count 218. Sodium 140, potassium 3.3, BUN 47 and 3.04 yesterday, 44 and 2.9 this morning. Troponins are negative. BNP level 701. At the time of my examination this morning, patient is complaining of feeling extremely weak, she's also complaining of feeling short of breath. Low-grade temperature this morning. 03/07/2019 Patient was seen and examined this morning, overall feeling well. Repeat chest x-ray performed this morning showed mild cardiomegaly and vascular congestion. Small bilateral pleural effusions. has been maintained on IV fluids, creatinine is improving. She did have an episode of vomiting this morning, no diarrhea. Breathing is overall stable. Echocardiogram with Doppler study revealed an ejection fraction of 50-55%. Blood pressure 116/56 with a heart rate in the 70s, 96% on room air. White blood cell count 11.5, hemoglobin 10.7, platelet count 215. Sodium 142, potassium 3.9, BUN 56 and creatinine 1.8 today. Objective - Vital Signs Vital signs: Vital Signs Temp 97.8 F 03/07/19 08:00 Pulse 72 03/07/19 08:15 Resp 18 03/07/19 02:48 BP 117/56 03/07/19 08:00 Pulse Ox 96 03/07/19 08:00 Intake & Output 03/06/19 03/07/19 03/07/19 18:59 06:59 18:59 Intake Total 480 300 120 Output Total 300 Balance 180 300 120 Weight 87.4 kg Intake: Intake, IV Titration 300 Amount Sodium Chloride 0.9% 1, 300 000 ml @ 75 mls/hr IV . [id number] [facility] Rx#:[id number] Oral 480 120 Output: Urine 300 Other: Voiding Method Incontinent Incontinent Incontinent # Voids 2 - Exam PHYSICAL EXAMINATION: GENERAL: 88 stroke female in no acute distress at the time of my exa mination HEENT: Head is atraumatic, normocephalic. Pupils equal, round. Sclera anicteric. Conjunctiva are clear. Mucous membranes of the mouth are moist. Neck is supple. There is elevated jugular venous pressure. No carotid] bruit is heard. HEART EXAMINATION: S1 S2 1 systolic murmur is heard CHEST EXAMINATION: Lungs reveal scattered coarse rhonchi throughout ABDOMEN: Soft, nontender. Bowel sounds are heard. No organomegaly noted. EXTREMITIES: 2+ peripheral pulses with 1+ no evidence of peripheral edema and no calf tenderness noted. NEUROLOGIC patient is awake, alert and oriented 3 . - Labs CBC & Chem 7: 03/07/19 06:11 03/07/19 06:11 Labs: Abnormal Lab Results - Last 24 Hours (Table) 03/06/19 03/06/19 03/06/19 Range/Units 06:21 16:53 17:00 WBC (3.8-10.6) k/uL Hgb (11.4-16.0) gm/dL RDW (11.5-15.5) % Neutrophils # (1.3-7.7) k/uL Lymphocytes # (1.0-4.8) k/uL BUN (7-17) mg/dL Creatinine (0.52-1.04) mg/dL Glucose (74-99) mg/dL POC Glucose (mg/dL) 212 H (75-99) mg/dL Calcium (8.4-10.2) mg/dL Procalcitonin 0.16 H (0.02-0.09) ng/mL Urine Protein Trace H (Negative) 03/06/19 03/07/19 03/07/19 Range/Units 20:55 06:05 06:11 WBC 11.5 H (3.8-10.6) k/uL Hgb 10.7 L (11.4-16.0) gm/dL RDW 15.6 H (11.5-15.5) % Neutrophils # 10.1 H (1.3-7.7) k/uL Lymphocytes # 0.8 L (1.0-4.8) k/uL BUN (7-17) mg/dL Creatinine (0.52-1.04) mg/dL Glucose (74-99) mg/dL POC Glucose (mg/dL) 295 H 172 H (75-99) mg/dL Calcium (8.4-10.2) mg/dL Procalcitonin (0.02-0.09) ng/mL Urine Protein (Negative) 03/07/19 03/07/19 Range/Units 06:11 11:37 WBC (3.8-10.6) k/uL Hgb (11.4-16.0) gm/dL RDW (11.5-15.5) % Neutrophils # (1.3-7.7) k/uL Lymphocytes # (1.0-4.8) k/uL BUN 56 H (7-17) mg/dL Creatinine 1.89 H (0.52-1.04) mg/dL Glucose 153 H (74-99) mg/dL POC Glucose (mg/dL) 201 H (75-99) mg/dL Calcium 8.3 L (8.4-10.2) mg/dL Procalcitonin (0.02-0.09) ng/mL Urine Protein (Negative) Microbiology - Last 24 Hours (Table) 03/06/19 06:21 Blood Culture - Preliminary Blood No Growth after 24 hours 03/06/19 17:00 Urine Culture - Preliminary Urine,Catheterized Assessment and Plan Plan: Assessment and plan #1 Symptoms of progressive weakness with associated shortness of breath,likely secondary to pneumonia, no clear cut evidence of CHF, BNP 800 #3 hypertension #4 hyperlipidemia #5 coronary artery disease with prior stent placements #6 prior pacemaker implantation #7 hypothyroidism Plan Echocardiogram with Doppler study revealed a normal left ventricular systolic function. From cardiology's perspective, we will follow this with you now on an as-needed basis only, please don't hesitate to call with any questions. DNP note has been reviewed, I agree with a documented findings and plan of care. Patient was seen and examined.
--- NOTE | 2019-03-07 13:08 | P.PN ---
Subjective Progress Note Date: 03/07/19 Principal diagnosis: Residual pneumonia at the lung bases, acute renal failure related to drug or ATN, generalized weakness and medical debility, acute on chronic hypoxic respiratory failure, diastolic heart failure echo revealed ejection fraction of 55% 03/07/2019, patient seen eval examined during the rounds computed tomography scan finding reviewed there is some basal pneumonia is present which can explain hypoxia patient remained short of breath but severity has improved FiO2 is decreased to 3 L sats are 95-96% 88-year-old female who was seen evaluated examined on medical floor patient has a complex history of coronary artery disease hypertension hypertensive cardio vascular disease, she presented at [facility] with a diagnosis of pneumonia developed acute renal failure and worsening of renal function patient was transferred over here, review of the data reveals that she has a known history of hypertension, coronary artery disease with prior PCI, most recent stent placement was in May 2018 at which time patient underwent stenting of the LAD, prior pacemaker implantation, hypertension, hyperlipidemia, history of degenerative joint disease, who resides at an adult foster assisted, patient has been having a left shoulder discomfort, was treated on March 02 symptomatically, given Toradol and subsequently went back to the adult foster assisted, she again re-presented back to the hospital, had her dislocated shoulder replaced, and was also started on Levaquin for suspected pneumonia. Patient had been complaining of weakness, had apparently been having fevers as well. She presented to [facility], again diagnosed with pneumonia, subs equently developed renal failure, creatinine steadily increased from 0.8-3.6, patient was also found to be in respiratory failure. Because of the worsening renal function and associated shortness of breath and respiratory failure patient was transferred to [facility] for further evaluation. EKG performed at [facility] showed a normal sinus rhythm with nonspecific ST-T wave changes. The chest x-ray performed over here at [facility] no pneumonia is seen, labs reviewed white cell count is normal protection was slightly low, BUN/creatinine has improved to 44 and 2.1 Objective - Vital Signs Vital signs: Vital Signs Temp 97.8 F 03/07/19 08:00 Pulse 72 03/07/19 08:15 Resp 18 03/07/19 02:48 BP 117/56 03/07/19 08:00 Pulse Ox 96 03/07/19 08:00 Intake & Output 03/06/19 03/07/19 03/07/19 18:59 06:59 18:59 Intake Total 480 300 120 Output Total 300 Balance 180 300 120 Weight 87.4 kg Intake: Intake, IV Titration 300 Amount Sodium Chloride 0.9% 1, 300 000 ml @ 75 mls/hr IV . [id number] [facility] Rx#:[id number] Oral 480 120 Output: Urine 300 Other: Voiding Method Incontinent Incontinent Incontinent # Voids 2 - Exam - Constitutional General appearance: average body habitus, disheveled, mild distress - EENT Eyes: EOMI, PERRLA Ears: bilateral: normal - Neck Neck: normal ROM Carotids: bilateral: upstroke normal, bruit absent - Respiratory Respiratory: bilateral: diminished, rales, negative: dullness, rhonchi, wheezing - Cardiovascular Rhythm: regular Heart sounds: normal: S1, S2 - Gastrointestinal General gastrointestinal: decreased bowel sounds, distended, soft - Integumentary Integumentary: decreased turgor - Musculoskeletal Musculoskeletal: generalized weakness, strength equal bilaterally - Psychiatric Psychiatric: A&O x's 3, appropriate affect - Labs CBC & Chem 7: 03/07/19 06:11 03/07/19 06:11 Labs: Abnormal Lab Results - Last 24 Hours (Table) 03/06/19 03/06/19 03/06/19 Range/Units 06:21 16:53 17:00 WBC (3.8-10.6) k/uL Hgb (11.4-16.0) gm/dL RDW (11.5-15.5) % Neutrophils # (1.3-7.7) k/uL Lymphocytes # (1.0-4.8) k/uL BUN (7-17) mg/dL Creatinine (0.52-1.04) mg/dL Glucose (74-99) mg/dL POC Glucose (mg/dL) 212 H (75-99) mg/dL Calcium (8.4-10.2) mg/dL Procalcitonin 0.16 H (0.02-0.09) ng/mL Urine Protein Trace H (Negative) 03/06/19 03/07/19 03/07/19 Range/Units 20:55 06:05 06:11 WBC 11.5 H (3.8-10.6) k/uL Hgb 10.7 L (11.4-16.0) gm/dL RDW 15.6 H (11.5-15.5) % Neutrophils # 10.1 H (1.3-7.7) k/uL Lymphocytes # 0.8 L (1.0-4.8) k/uL BUN (7-17) mg/dL Creatinine (0.52-1.04) mg/dL Glucose (74-99) mg/dL POC Glucose (mg/dL) 295 H 172 H (75-99) mg/dL Calcium (8.4-10.2) mg/dL Procalcitonin (0.02-0.09) ng/mL Urine Protein (Negative) 03/07/19 03/07/19 Range/Units 06:11 11:37 WBC (3.8-10.6) k/uL Hgb (11.4-16.0) gm/dL RDW (11.5-15.5) % Neutrophils # (1.3-7.7) k/uL Lymphocytes # (1.0-4.8) k/uL BUN 56 H (7-17) mg/dL Creatinine 1.89 H (0.52-1.04) mg/dL Glucose 153 H (74-99) mg/dL POC Glucose (mg/dL) 201 H (75-99) mg/dL Calcium 8.3 L (8.4-10.2) mg/dL Procalcitonin (0.02-0.09) ng/mL Urine Protein (Negative) Microbiology - Last 24 Hours (Table) 03/06/19 06:21 Blood Culture - Preliminary Blood No Growth after 24 hours 03/06/19 17:00 Urine Culture - Preliminary Urine,Catheterized Assessment and Plan Assessment: Bilateral basal pneumonia clinically and radiographically improving Acute renal failure likely related to acute tubular necrosis versus drug related due to Toradol and intravascular volume depletion dehydration Generalized weakness related to multifactorial processes including renal failure heart failure Likely acute on chronic diastolic heart failure echo reviewed Plan: Agree with IV Rocephin for now Gentle rehydration DVT and peptic ulcer disease prophylaxis Monitor labs electrolytes closely Recommend PT and OT Further recommendations pending plan of care as per clinical response of the p atient UA and C&S Time with Patient: Greater than 30
--- NOTE | 2019-03-07 20:01 | PN ---
PROGRESS NOTE DATE OF SERVICE: 03/07/2019. HISTORY OF PRESENT ILLNESS: This 88-year-old woman with a past medical history of multiple medical problems admitted with renal failure, fluid overload and as well as congestive heart failure acute exacerbation as well as respiratory failure. Of note the patient had recurrent shoulder dislocation on the left side and necessitating recurrent replacement and two of the episodes resulted in multiple comorbidities and hospital admissions. The patient has been evaluated by Dr. Thorne in the outpatient setting, and I talked to Tej, the Orthopedic Associate's PA and they are considering the possibility of referral to [facility] for further evaluation treatment because of the high complex medical issues and comorbidities. Otherwise, the patient is closely followed by multiple consultants. A chest x-ray done yesterday which was personally reviewed by me showed still significant fluid overload, but probably slightly better compared to the previous one. The patient also doing slightly better. Multiple consultants including Pulmonary also following the patient closely. PAST MEDICAL HISTORY: Reviewed. REVIEW OF SYSTEMS: CARDIOVASCULAR: No angina. RESPIRATORY: As mentioned. GI: No nausea. : No dysuria. NERVOUS SYSTEM: No numbness or weakness. CURRENT MEDICATIONS: Reviewed and include: 1. Tylenol p.o. 320 daily. 2. DuoNeb q.i.d. and p.r.n. 3. Cordarone 200 mg p.o. daily. 4. Aspirin 81 mg. 5. Lipitor 40 mg q.h.s. 6. Symbicort 4.5 two puffs b.i.d. 7. Omnicef 300 mg p.o. daily. 8. Plavix 75 mg p.o. daily. 9. Vitamin B12 1000 mcg. 10.Colace 100 mg p.o. b.i.d. 11.Vitamin D2 50,000 p.o. Saturday. 12.Neurontin 300 mg p.o. b.i.d. 13.Heparin 5 subcu b.i.d. 14.NovoLog scale. 15.Synthroid 25 mcg. 16.Solu-Medrol 60 IV q.i.d. 17.Nitrostat 0.4 sublingually p.r.n. 18.Protonix 40 mg daily. 19.Zoloft 100 mg p.o. daily. PHYSICAL EXAM: Patient is alert, oriented x3. Pulse 72, blood pressure 117/56, respiration 20, temperature 97.8, pulse ox 98% on room air. HEENT: Conjunctivae normal. Oral mucosa moist. Neck is no jugular venous distention. No carotid bruit. No lymph node enlargement. CARDIOVASCULAR: S1, S2. RESPIRATORY: Breath sounds diminished in the bases. Bilateral scattered rhonchi. ABDOMEN: Soft, nontender. LEGS: No edema. No swelling. NERVOUS SYSTEM: No focal deficits. LAB STUDIES: WBC 11.7, hemoglobin 10.7, creatinine is 1.89. ASSESSMENT: 1. Shortness of breath with possible congestive heart failure acute exacerbation with acute on chronic diastolic dysfunction, ejection fraction 50-55 percent. 2. Acute renal failure possibly prerenal acute tubular necrosis. 3. Acute hypoxic respiratory failure secondary to congestive heart failure acute exacerbation. 4. History of recent pneumonia. 5. Left shoulder dislocation, recurrent. 6. History of coronary artery disease. 7. History of vitamin D deficiency. 8. Hyperlipidemia. 9. History of anxiety, depression. 10.Hypothyroidism. 11.Chronic hypoxic respiratory failure on home oxygen at 2 L nasal cannula. 12.History of coronary artery disease, stent. 13.History of pacemaker. 14.FULL CODE. RECOMMENDATIONS AND DISCUSSION: This 88-year-old woman who presented with multiple complex medical issues, will monitor the patient closely. Continue the current management and symptomatic treatment. Otherwise, creatinine is improving at 1.89. We will continue to monitor. Otherwise, the patient has seen multiple consultants including Orthopedic Surgery, Cardiology, Nephrology and Pulmonology. Care was coordinated. I had a detailed discussion with the family and also Orthopedic Associate's ELIUD Burnham and we might consider referring to [facility] probably as an outpatient because of the multiple complex medical issues. Please also note that the patient is running into significant troubles after reduction or procedure to correct the shoulder dislocations. Once again guarded prognosis. Further recommendations to follow. MMODL / IJN: [id number] /
[2019-03-07 20:17] LABS: Glucose,Whole Blood 278 mg/dL (75-99)
[2019-03-07] MEDS: ATORVASTATIN 40 MG TAB PO SCH (20:26)
[2019-03-08] MEDS: IPRATROPIUM-ALBUTEROL 3 ML NEB INHALATION SCH ×7 (00:42→23:18)
[2019-03-08] MEDS: SODIUM CHLORIDE 0.9% 1,000 ML IV SCH ×2 (05:02→21:41)
[2019-03-08 06:01] LABS: Glucose,Whole Blood 177 mg/dL (75-99)
[2019-03-08] MEDS: LEVOTHYROXINE 25 MCG TAB PO SCH (06:55)
[2019-03-08] MEDS: methylPREDNISolone SOD SUCCI 125 MG/2 ML VIAL IV SCH ×4 (06:55→22:44)
[2019-03-08] MEDS: INSULIN ASPART (NovoLOG) 100 UNIT/ML VIAL SQ SCH ×4 (06:55→21:38)
[2019-03-08 06:56] LABS: Basophils % (A) 0 %; Eosinophils % (A) 0 %; HCT 37.4 % (34.0-46.0); HGB 11.5 gm/dL (11.4-16.0); Hypochromasia Slight; Lymphocytes # (A) 0.7 k/uL (1.0-4.8); Lymphocytes % (A) 6 %; MCH 28.1 pg (25.0-35.0); MCHC 30.9 g/dL (31.0-37.0); MCV 91.1 fL (80.0-100.0); Mean Platelet Volume 7.6; Monocytes # (A) 0.2 k/uL (0-1.0); Monocytes % (A) 2 %; Neutrophils # (A) 11.7 k/uL (1.3-7.7); Neutrophils % (A) 92 %; Platelet Count 231 k/uL (150-450); RBC 4.11 m/uL (3.80-5.40); RDW 15.2 % (11.5-15.5); WBC 12.7 k/uL (3.8-10.6)
[2019-03-08] MEDS: SYMBICORT 160-4.5 MCG INHALER INHALATION SCH ×2 (06:58→19:12)
[2019-03-08 07:14] LABS: Calcium 8.6 mg/dL (8.4-10.2); Magnesium 2.3 mg/dL (1.6-2.3); Potassium 3.7 mmol/L (3.5-5.1)
[2019-03-08] MEDS: CLOPIDOGREL 75 MG TAB PO SCH (10:22)
[2019-03-08] MEDS: SERTRALINE 100 MG TAB PO SCH (10:22)
[2019-03-08] MEDS: PANTOPRAZOLE 40 MG TABLET PO SCH (10:22)
[2019-03-08] MEDS: ASPIRIN 81 MG PO SCH (10:22)
[2019-03-08] MEDS: CYANOCOBALAMIN 500 MCG TAB PO SCH (10:22)
[2019-03-08] MEDS: ACETAMINOPHEN TAB 325 MG TAB PO SCH (10:22)
[2019-03-08] MEDS: AMIODARONE 200 MG TAB PO SCH (10:22)
[2019-03-08] MEDS: GABAPENTIN 100 MG CAP PO SCH ×2 (10:22→21:37)
[2019-03-08] MEDS: CEFDINIR 300 MG CAP PO SCH (10:22)
[2019-03-08] MEDS: HEPARIN SODIUM,PORCINE 5,000 UNIT/ML 1 ML VIAL SQ SCH ×2 (10:23→21:38)
[2019-03-08] MEDS: DOCUSATE 100 MG CAP PO SCH ×2 (10:23→21:28)
--- NOTE | 2019-03-08 10:47 | P.PN ---
Subjective Patient is seen in follow-up for acute kidney injury. Her baseline creatinine was 1 and was elevated at 3.6 prior to admission. Patient's been maintained on IV fluids and renal function is improving. No edema. She is incontinent. No diarrhea. Oral intake is better. Creatinine is down to 1.7 today. Vital signs are stable. General: The patient appeared well nourished and normally developed. HEENT: Head exam is unremarkable. Neck is without jugular venous distension. LUNGS: Breath sounds decreased. HEART: Rate and Rhythm are regular. First and second heart sounds normal. No murmurs, rubs or gallops. ABDOMEN: Abdominal exam reveals normal bowel sounds. Non-tender and non- distended. No evidence of peritonitis. EXTREMITITES: No clubbing, cyanosis, or edema. Objective - Vital Signs Vital signs: Vital Signs Temp 97.9 F 03/08/19 08:00 Pulse 75 03/08/19 08:00 Resp 18 03/08/19 08:00 BP 115/55 03/08/19 08:00 Pulse Ox 94 L 03/08/19 08:00 Intake & Output 03/07/19 03/08/19 03/08/19 18:59 06:59 18:59 Intake Total 600 240 Balance 600 240 Weight 91.5 kg Intake: Oral 600 240 Other: Voiding Method Incontinent Incontinent Incontinent # Voids 1 1 # Bowel Movements 1 - Labs CBC & Chem 7: 03/08/19 06:30 03/08/19 06:30 Labs: Abnormal Lab Results - Last 24 Hours (Table) 03/07/19 03/07/19 03/08/19 Range/Units 11:37 20:14 05:59 WBC (3.8-10.6) k/uL MCHC (31.0-37.0) g/dL Neutrophils # (1.3-7.7) k/uL Lymphocytes # (1.0-4.8) k/uL Chloride (98-107) mmol/L BUN (7-17) mg/dL Creatinine (0.52-1.04) mg/dL Glucose (74-99) mg/dL POC Glucose (mg/dL) 201 H 278 H 177 H (75-99) mg/dL 03/08/19 03/08/19 Range/Units 06:30 06:30 WBC 12.7 H (3.8-10.6) k/uL MCHC 30.9 L (31.0-37.0) g/dL Neutrophils # 11.7 H (1.3-7.7) k/uL Lymphocytes # 0.7 L (1.0-4.8) k/uL Chloride 108 H (98-107) mmol/L BUN 55 H (7-17) mg/dL Creatinine 1.70 H (0.52-1.04) mg/dL Glucose 157 H (74-99) mg/dL POC Glucose (mg/dL) (75-99) mg/dL Microbiology - Last 24 Hours (Table) 03/06/19 06:21 Blood Culture - Preliminary Blood No Growth after 48 hours 03/06/19 17:00 Urine Culture - Final Urine,Catheterized Assessment and Plan Plan: Assessment: 1. Acute kidney injury mostly prerenal secondary to intravascular volume depletion from diuretics and further worsened with the use of losartan. Creatinine was 3.6 at [facility] and is 1.7 today. Baseline creatinine near 1. UA is quite benign. No evidence of hydronephrosis noted on renal ultra sound. 2. Hypokalemia from poor oral intake. Better. 3. History of coronary artery disease status post stenting of the LAD in May 2018. 4. Acute hypoxic respiratory failure. Doubt CHF as no evidence of vascular congestion on chest x-ray. No pleural effusions noted on chest CT. Currently on IV steroids and bronchodilator therapy. Also on antibiotics for possible pneumonia. 5. Diastolic CHF with mild mitral and tricuspid regurgitation. Mild pulmonary hypertension. Plan: Hep-Lock IV fluids. Encouraged oral intake. Repeat electrolytes in the morning.
--- NOTE | 2019-03-08 11:37 | P.PN ---
Subjective Progress Note Date: 03/08/19 Principal diagnosis: Residual pneumonia at the lung bases, acute renal failure related to drug or ATN, generalized weakness and medical debility, acute on chronic hypoxic respiratory failure, diastolic heart failure echo revealed ejection fraction of 55% 03/18/2019, patient seen eval reexamined during the rounds cuff congestion shortness of breath is improved patient is at room air oxygen is in mid 90s range denies any cough or sputum production denies any chest pain labs reviewed medications reviewed 03/07/2019, patient seen eval examined during the rounds computed tomography scan finding reviewed there is some basal pneumonia is present which can explain hypoxia patient remained short of breath but severity has improved FiO2 is decreased to 3 L sats are 95-96% 88-year-old female who was seen evaluated examined on medical floor patient has a complex history of coronary artery disease hypertension hypertensive cardiovascular disease, she presented at [facility] with a diagnosis of pneumonia developed acute renal failure and worsening of renal function patient was transferred over here, review of the data reveals that she has a known history of hypertension, coronary artery disease with prior PCI, most recent stent placement was in May 2018 at which time patient underwent stenting of the LAD, prior pacemaker implantation, hypertension, hyperlipidemia, history of degenerative joint disease, who resides at an adult foster long term, patient has been having a left shoulder discomfort, was treated on March 02 symptomatically, given Toradol and subsequently went back to the adult foster long term, she again re-presented back to the hospital, had her dislocated shoulder replaced, and was also started on Levaquin for suspected pneumonia. Patient had been complaining of weakness, had apparently been having fevers as well. She presented to [facility], again diagnosed with pneumonia, subsequently developed renal failure, creatinine steadily increased from 0.8- 3.6, patient was also found to be in respiratory failure. Because of the w orsening renal function and associated shortness of breath and respiratory failure patient was transferred to [facility] for further evaluation. EKG performed at [facility] showed a normal sinus rhythm with nonspecific ST- T wave changes. The chest x-ray performed over here at [facility] no pneumonia is seen, labs reviewed white cell count is normal protection was slightly low, BUN/creatinine has improved to 44 and 2.1 Objective - Vital Signs Vital signs: Vital Signs Temp 97.9 F 03/08/19 08:00 Pulse 75 06/09/19 08:00 Resp 18 03/08/19 08:00 BP 115/55 03/08/19 08:00 Pulse Ox 94 L 03/08/19 08:00 Intake & Output 03/07/19 03/08/19 03/08/19 18:59 06:59 18:59 Intake Total 600 240 Balance 600 240 Weight 91.5 kg Intake: Oral 600 240 Other: Voiding Method Incontinent Incontinent Incontinent # Voids 1 1 # Bowel Movements 1 - Exam - Constitutional General appearance: average body habitus, disheveled, mild distress - EENT Eyes: EOMI, PERRLA Ears: bilateral: normal - Neck Neck: normal ROM Carotids: bilateral: upstroke normal, bruit absent - Respiratory Respiratory: bilateral: diminished, rales, negative: dullness, rhonchi, wheezing - Cardiovascular Rhythm: regular Heart sounds: normal: S1, S2 - Gastrointestinal General gastrointestinal: decreased bowel sounds, distended, soft - Integumentary Integumentary: decreased turgor - Musculoskeletal Musculoskeletal: generalized weakness, strength equal bilaterally - Psychiatric Psychiatric: A&O x's 3, appropriate affect - Labs CBC & Chem 7: 03/08/19 06:30 03/08/19 06:30 Labs: Abnormal Lab Results - Last 24 Hours (Table) 03/07/19 03/07/19 03/08/19 Range/Units 11:37 20:14 05:59 WBC (3.8-10.6) k/uL MCHC (31.0-37.0) g/dL Neutrophils # (1.3-7.7) k/uL Lymphocytes # (1.0-4.8) k/uL Chloride (98-107) mmol/L BUN (7-17) mg/dL Creatinine (0.52-1.04) mg/dL Glucose (74-99) mg/dL POC Glucose (mg/dL) 201 H 278 H 177 H (75-99) mg/dL 03/08/19 03/08/19 Range/Units 06:30 06:30 WBC 12.7 H (3.8-10.6) k/uL MCHC 30.9 L (31.0-37.0) g/dL Neutrophils # 11.7 H (1.3-7.7) k/uL Lymphocytes # 0.7 L (1.0-4.8) k/uL Chloride 108 H (98-107) mmol/L BUN 55 H (7-17) mg/dL Creatinine 1.70 H (0.52-1.04) mg/dL Glucose 157 H (74-99) mg/dL POC Glucose (mg/dL) (75-99) mg/dL Microbiology - Last 24 Hours (Table) 03/06/19 06:21 Blood Culture - Preliminary Blood No Growth after 48 hours 03/06/19 17:00 Urine Culture - Final Urine,Catheterized Assessment and Plan Assessment: Bilateral basal pneumonia clinically and radiographically improving Acute renal failure likely related to acute tubular necrosis versus drug related due to Toradol and intravascular volume depletion dehydration Generalized weakness related to multifactorial processes including renal failure heart failure Likely acute on chronic diastolic heart failure echo reviewed Plan: Continue IV Rocephin for now Gentle rehydration DVT and peptic ulcer disease prophylaxis Monitor labs electrolytes closely Recommend PT and OT Further recommendations pending plan of care as per clinical response of the patient UA and C&S results reviewed Time with Patient: Greater than 30
[2019-03-08 11:48] LABS: Glucose,Whole Blood 253 mg/dL (75-99)
[2019-03-08 17:09] LABS: Glucose,Whole Blood 172 mg/dL (75-99)
--- NOTE | 2019-03-08 18:47 | PN ---
PROGRESS NOTE DATE OF SERVICE: 03/08/2019. HISTORY OF PRESENT ILLNESS: This 88-year-old woman was admitted with multiple medical problems, shortness of breath, CHF exacerbation, also had kidney failure. After IV fluids, kidney failure, improving at this time. One of the major issues, is recurrent left shoulder dislocation which was evaluated by Dr. Thorne in the outpatient setting. Dr. Thorne has recommended [facility] in [place] recommendation because of the high risk for surgery for evaluation and treatment. Otherwise, multiple consultants are following the patient including Dr. Castaneda and as well as Cardiology and Nephrology. PAST MEDICAL HISTORY: Reviewed. REVIEW OF SYSTEMS: CARDIOVASCULAR: No angina or palpitations. RESPIRATION: As mentioned. GI no nausea. : No dysuria. CENTRAL NERVOUS SYSTEM: No numbness or weakness. CURRENT MEDICATIONS: Reviewed and include: 1. Tylenol 325 p.o. daily. 2. DuoNeb q.i.d. and p.r.n. 3. Cordarone 200 mg b.i.d. 4. Aspirin 81 mg. 5. Lipitor 40 mg q.h.s. 6. Symbicort 160/4.5 two puffs b.i.d. 8. Plavix 75 mg p.o. daily. 9. Vitamin B12 1000 mcg p.o. daily. 10.Colace 100 mg p.o. b.i.d. 11.Vitamin D2 50,000 daily. 12.Neurontin 100 mg p.o. b.i.d. 13.Heparin 5000 subcu b.i.d. 14.NovoLog scale. 15.Synthroid 25 mcg p.o. daily. 16.Solu-Medrol 60 IV q.6. 17.Nitrostat. 18.Protonix 40 mg b.i.d. 19.Zoloft 100 mg p.o. daily. PHYSICAL EXAM: Patient is alert, oriented x3. Pulse is 72, blood pressure 108/52, respiration 14, temperature 98.6, pulse ox 97% on 2 L. HEENT: Conjunctivae normal. NECK: No jugular venous distention. CARDIOVASCULAR: S1, S2 muffled. RESPIRATORY: Breath sounds diminished in the bases. Bilateral scattered rhonchi and crackles. Expiratory wheezing also present. ABDOMEN: Soft, nontender. No mass palpable. LEGS: No edema. No swelling. NERVOUS SYSTEM: Higher functions as mentioned earlier. Moves all four limbs. No focal motor or sensory deficits. LYMPHATICS: No lymph nodes palpable in the neck, axillae or groin. SKIN: No ulcer, rashes or bleeding. JOINTS: No active deforming arthropathy. NERVOUS SYSTEM: Mild diffuse weakness. LAB STUDIES: WBC 12.2, hemoglobin 11.5, sodium 140, potassium 3.7, creatinine is 1.70. ASSESSMENT: 1. Shortness of breath with possible congestive heart failure acute exacerbation with acute on chronic diastolic dysfunction ejection fraction 50-55 percent. 2. Acute renal failure possibly prerenal acute tubular necrosis. 3. Acute hypoxic respiratory failure secondary to congestive heart failure acute exacerbation. 4. History of recent pneumonia. 5. Left shoulder dislocation, recurrent. 6. History of coronary artery disease. 7. History of vitamin D deficiency. 8. Hyperlipidemia. 9. History of anxiety, depression. 10.Hypothyroidism. 11.Chronic hypoxic respiratory failure on home oxygen at 2 L nasal cannula. 12.History of coronary artery disease/stent. 13.History of pacemaker. 14.FULL CODE. RECOMMENDATIONS AND DISCUSSION: In this 88-year-old woman who presented with multiple complex medical issues, we will monitor the patient closely, continue the current medications, management and symptomatic treatment. The creatinine is significantly improved. We will stop the IV fluids. I would recommend repeat chest x-ray in the morning to evaluate the fluid and electrolyte status. Otherwise, I would also recommend closely follow with multiple consultants as mentioned earlier. I had a detailed discussion with orthopedic surgery. Outpatient evaluation with the [facility] Orthopedic surgery is recommended regarding the recurrent shoulder dislocation and possible correction because the patient has multiple medical issues including renal failure, hypotension, other issues following reduction of dislocations previously. See orders for further details. Prognosis guarded. Further recommendations to follow. Otherwise PT, OT evaluation, possible ECF rehab. Further recommendations to follow. MMODL / IJN: [id number] / [id number]
[2019-03-08 21:20] LABS: Glucose,Whole Blood 253 mg/dL (75-99)
[2019-03-08] MEDS: ATORVASTATIN 40 MG TAB PO SCH (21:37)
[2019-03-09] MEDS: IPRATROPIUM-ALBUTEROL 3 ML NEB INHALATION SCH ×6 (03:20→22:59)
[2019-03-09] MEDS: methylPREDNISolone SOD SUCCI 125 MG/2 ML VIAL IV SCH ×5 (05:23→23:02)
[2019-03-09] MEDS: SYMBICORT 160-4.5 MCG INHALER INHALATION SCH ×2 (07:16→21:34)
--- NOTE | 2019-03-09 07:16 | XR ---
EXAMINATION TYPE: XR chest 1V portable DATE OF EXAM: 03/09/2019 COMPARISON: 03/07/2019 HISTORY: Congestive heart failure and shortness of breath TECHNIQUE: Single frontal view of the chest is obtained. FINDINGS: There is redemonstration of an enlarged cardiomediastinal silhouette with mild pulmonary v ascular congestion and trace left pleural effusion blunting the costophrenic angle. Retrocardiac airs pace disease is unchanged and may represent atelectasis and confluent edema or less likely pneumonia. No sizable pneumothorax. Dual lead cardiac pacemaker is present. No acute osseous pathology although chronic right rib deformities are seen. IMPRESSION: Enlarged cardiomediastinal silhouette, minimal pulmonary vascular congestion, and trace pleural effusion/retrocardiac airspace disease persists.
[2019-03-09 07:44] LABS: Glucose,Whole Blood 210 mg/dL (75-99)
[2019-03-09] MEDS: PANTOPRAZOLE 40 MG TABLET PO SCH (08:04)
[2019-03-09] MEDS: LEVOTHYROXINE 25 MCG TAB PO SCH (08:04)
[2019-03-09] MEDS: ASPIRIN 81 MG PO SCH (08:04)
[2019-03-09] MEDS: CEFDINIR 300 MG CAP PO SCH (08:05)
[2019-03-09] MEDS: SERTRALINE 100 MG TAB PO SCH (08:05)
[2019-03-09] MEDS: CYANOCOBALAMIN 500 MCG TAB PO SCH (08:05)
[2019-03-09] MEDS: ACETAMINOPHEN TAB 325 MG TAB PO SCH (08:05)
[2019-03-09] MEDS: GABAPENTIN 100 MG CAP PO SCH ×2 (08:05→20:32)
[2019-03-09] MEDS: INSULIN ASPART (NovoLOG) 100 UNIT/ML VIAL SQ SCH ×4 (08:06→20:32)
[2019-03-09] MEDS: CLOPIDOGREL 75 MG TAB PO SCH (08:06)
[2019-03-09] MEDS: AMIODARONE 200 MG TAB PO SCH (08:06)
[2019-03-09] MEDS: HEPARIN SODIUM,PORCINE 5,000 UNIT/ML 1 ML VIAL SQ SCH ×2 (08:06→20:32)
[2019-03-09] MEDS: DOCUSATE 100 MG CAP PO SCH ×2 (08:07→20:32)
[2019-03-09 08:11] LABS: Basophils % (A) 0 %; Eosinophils % (A) 0 %; HCT 35.6 % (34.0-46.0); HGB 11.2 gm/dL (11.4-16.0); Hypochromasia Slight; Lymphocytes # (A) 0.8 k/uL (1.0-4.8); Lymphocytes % (A) 6 %; MCH 28.6 pg (25.0-35.0); MCHC 31.5 g/dL (31.0-37.0); MCV 90.9 fL (80.0-100.0); Mean Platelet Volume 7.6; Monocytes # (A) 0.3 k/uL (0-1.0); Monocytes % (A) 2 %; Neutrophils # (A) 12.7 k/uL (1.3-7.7); Neutrophils % (A) 92 %; Platelet Count 234 k/uL (150-450); RBC 3.92 m/uL (3.80-5.40); RDW 15.1 % (11.5-15.5); WBC 13.8 k/uL (3.8-10.6)
[2019-03-09 08:27] LABS: Calcium 8.8 mg/dL (8.4-10.2); Magnesium 2.5 mg/dL (1.6-2.3); Potassium 3.9 mmol/L (3.5-5.1)
[2019-03-09 11:44] LABS: Glucose,Whole Blood 228 mg/dL (75-99)
[2019-03-09] MEDS: SODIUM CHLORIDE 0.9% 1,000 ML IV SCH (12:22)
--- NOTE | 2019-03-09 14:50 | P.PN ---
Subjective This is a pleasant 88 years old female with past medical history of heart failure, hyperlipidemia, hypertension, coronary artery disease, as her art hritis, urinary and stool incontinence, recurrent shoulder dislocation. Presents with signs and symptoms of pneumonia and acute kidney injury. Patient is generally weak however she says she is improving. Her creatinine coming down from 3.6 down to 1.7 and 1.6 today. IV fluid was stopped. Patient continue on steroids and oral antibiotics for pneumonia. Her WBC is 12.7 , going up to 13.8 K, however she is on steroids. Orthopedic team recommended patient to follow-up with [facility] for her recurrent shoulder dislocation, I discussed this recommendation with the patient and family at bedside and they declined surgery and follow up with [facility] at this time, patient states that she is 88 and she does not want anymore surgery. She has a sling in place. Patient is on oxygen at home at 3 L/m. Objective - Vital Signs Vital signs: Vital Signs Temp 97.8 F 03/09/19 13:25 Pulse 71 03/09/19 13:25 Resp 18 03/09/19 13:25 BP 145/63 03/09/19 13:25 Pulse Ox 96 03/09/19 13:25 Intake & Output 03/08/19 03/09/19 03/09/19 18:59 06:59 18:59 Intake Total 480 120 Output Total 1 Balance 479 120 Intake: Oral 480 120 Output: Stool 1 Other: Voiding Method Incontinent Incontinent Diaper Incontinent # Voids 2 # Bowel Movements 1 - Exam GENERAL: The patient is alert and oriented x3, not in any acute distress. Obese HEENT: Pupils are round and equally reacting to light. EOMI. No scleral icterus. No conjunctival pallor. Normocephalic, atraumatic. No pharyngeal erythema. No thyromegaly. CARDIOVASCULAR: S1 and S2 present. No murmurs, rubs, or gallops. -PULMONARY: Chest is clear to auscultation, scattered wheezing. No crepitation ABDOMEN: Soft, nontender, nondistended, normoactive bowel sounds. No palpable organomegaly. MUSCULOSKELETAL: No joint swelling or deformity. EXTREMITIES: No cyanosis, clubbing, or pedal edema. NEUROLOGICAL: Gross neurological examination did not reveal any focal deficits. SKIN: No rashes. - Labs CBC & Chem 7: 03/09/19 07:21 03/09/19 07:21 Labs: Abnormal Lab Results - Last 24 Hours (Table) 03/08/19 03/08/19 03/09/19 Range/Units 16:49 21:19 07:21 WBC 13.8 H (3.8-10.6) k/uL Hgb 11.2 L (11.4-16.0) gm/dL Neutrophils # 12.7 H (1.3-7.7) k/uL Lymphocytes # 0.8 L (1.0-4.8) k/uL BUN (7-17) mg/dL Creatinine (0.52-1.04) mg/dL Glucose (74-99) mg/dL POC Glucose (mg/dL) 172 H 253 H (75-99) mg/dL Magnesium (1.6-2.3) mg/dL 03/09/19 03/09/19 03/09/19 Range/Units 07:21 07:42 11:40 WBC (3.8-10.6) k/uL Hgb (11.4-16.0) gm/dL Neutrophils # (1.3-7.7) k/uL Lymphocytes # (1.0-4.8) k/uL BUN 57 H (7-17) mg/dL Creatinine 1.68 H (0.52-1.04) mg/dL Glucose 196 H (74-99) mg/dL POC Glucose (mg/dL) 210 H 228 H (75-99) mg/dL Magnesium 2.5 H (1.6-2.3) mg/dL Microbiology - Last 24 Hours (Table) 03/06/19 06:21 Blood Culture - Preliminary Blood No Growth after 72 hours Assessment and Plan Assessment: Acute kidney injury, improving Community-acquired pneumonia, improving Acute COPD exacerbation Recurrent shoulder dislocation. Sling is in a Place patient refused follow-up or surgery Generalized weakness History of coronary artery disease History of congestive heart failure, not in acute exacerbation Hypertension Hyperlipidemia History of stool and urine incontinence Plan: This is a pleasant 58 years old female who presents with pneumonia and acute kidney injury. Continue with antibiotics and steroids. Continue with hydration, oral hydration is recommended now. Patient will need ECF upon discharge for her generalized weakness for inpatient rehab. To bring consult is following the patient including pulmonary and nephrology. Labs and medication were reviewed.. Continue same treatment. Continue with symptomatic treatment. Resume home medication. Monitor lytes and vitals. DVT and GI prophylaxis. Further recommendations of the clinical course of the patient DVT prophylaxis: Subcutaneous heparin GI Prophylaxis: Pe Protonix pcid PT/OT: Recommended patient to go to [facility] for inpatient rehab Prognosis is guarded
--- NOTE | 2019-03-09 16:25 | PN ---
PROGRESS NOTE The patient is seen for followup for acute kidney injury. Her renal function seems to have improved. She was admitted with a creatinine of 3.0, it is down to 1.6 mg/dL now. The patient was hydrated. Currently, she is eating well and has had good urine output. Patient was admitted with symptoms of shortness of breath and cough. She is being treated for pneumonia and is also maintained on steroids and updraft treatments. She states she is feeling better. PHYSICAL EXAMINATION: On examination, blood pressure is 116/57 this morning. Heart rate about 71 per minute. She is afebrile. Examination of the heart S1, S2. Examination of the lungs, bilateral breath sounds are heard. Abdomen is soft, nontender. Examination of lower extremities shows trace edema. COURT MESSENGER exam is grossly intact. Left arm is in a sling. LABS: Show sodium 141, potassium 3.9, BUN 57, serum creatinine 1.68, magnesium 2.5, hemoglobin 11.2 g/dL. ASSESSMENT: 1. Acute kidney injury, mostly prerenal status post IV blew fluids, currently off of IV fluids, maintaining good oral intake and angiotensin receptor blockers are also on hold. 2. Hypokalemia associated with decreased oral intake, currently improved. 3. Mild pulmonary hypertension. 4. History of coronary artery disease with previous coronary stenting in May of 2018. PLAN: Continue off of IV fluids. Repeat labs as outpatient. Serum creatinine was as low as 1.0 on 11/18/2018. Hold off on angiotensin receptor blockers for now and patient is advised to avoid use of any nonsteroidal anti-inflammatory agents post discharge. MMODL / IJN: [id number] /
[2019-03-09 17:26] LABS: Glucose,Whole Blood 254 mg/dL (75-99)
--- NOTE | 2019-03-09 18:33 | P.PN ---
Subjective Progress Note Date: 03/09/19 Principal diagnosis: Residual pneumonia at the lung bases, acute renal failure related to drug or ATN, generalized weakness and medical debility, acute on chronic hypoxic respiratory failure, diastolic heart failure echo revealed ejection fraction of 55% 03/09/2019, patient seen eval reexamined during the rounds on 3 L nasal cannula breathing comfortably labs reviewed medications reviewed, Her WBC is 12.7 , going up to 13.8 K, however she is on steroids. Orthopedic team recommended patient to follow-up with [facility] for her recurrent shoulder dislocation 03/08/2019, patient seen eval reexamined during the rounds cuff congestion shortness of breath is improved patient is at room air oxygen is in mid 90s range denies any cough or sputum production denies any chest pain labs reviewed medications reviewed 03/07/2019, patient seen eval examined during the rounds computed tomography scan finding reviewed there is some basal pneumonia is present which can explain hypoxia patient remained short of breath but severity has improved FiO2 is decreased to 3 L sats are 95-96% 88-year-old female who was seen evaluated examined on medical floor patient has a complex history of coronary artery disease hypertension hypertensive cardiovascular disease, she presented at [facility] with a diagnosis of pneumonia developed acute renal failure and worsening of renal function patient was transferred over here, review of the data reveals that she has a known history of hypertension, coronary artery disease with prior PCI, most recent stent placement was in May 2018 at which time patient underwent stenting of the LAD, prior pacemaker implantation, hypertension, hyperlipidemia, history of degenerative joint disease, who resides at an adult foster fdc, patient has been having a left shoulder discomfort, was treated on March 02 symptomatically, given Toradol and subsequently went back to the adult foster fdc, she again re-presented back to the hospital, had her dislocated shoulder replaced, and was also started on Levaquin for suspected pneumonia. Patient had been complaining of weakness, had apparently been having fevers as well. She presented to [facility], again diagnosed with pneumonia, subsequently developed renal failure, creatinine steadily increased from 0.8- 3.6, patient was also found to be in respiratory failure. Because of the worsening renal function and associated shortness of breath and respiratory fail ure patient was transferred to [facility] for further evaluation. EKG performed at [facility] showed a normal sinus rhythm with nonspecific ST-T wave changes. The chest x-ray performed over here at [facility] no pneumonia is seen, labs reviewed white cell count is normal protection was slightly low, BUN/creatinine has improved to 44 and 2.1 Objective - Vital Signs Vital signs: Vital Signs Temp 97.8 F 03/09/19 13:25 Pulse 72 03/09/19 17:44 Resp 18 03/09/19 13:25 BP 145/63 03/09/19 13:25 Pulse Ox 96 03/09/19 13:25 Intake & Output 03/08/19 03/09/19 03/09/19 18:59 06:59 18:59 Intake Total 480 120 Output Total 1 Balance 479 120 Intake: Oral 480 120 Output: Stool 1 Other: Voiding Method Incontinent Incontinent Diaper Incontinent # Voids 2 # Bowel Movements 1 - Exam - Constitutional General appearance: average body habitus, disheveled, mild distress - EENT Eyes: EOMI, PERRLA Ears: bilateral: normal - Neck Neck: normal ROM Carotids: bilateral: upstroke normal, bruit absent - Respiratory Respiratory: bilateral: diminished, rales, negative: dullness, rhonchi, wheezing - Cardiovascular Rhythm: regular Heart sounds: normal: S1, S2 - Gastrointestinal General gastrointestinal: decreased bowel sounds, distended, soft - Integumentary Integumentary: decreased turgor - Musculoskeletal Musculoskeletal: generalized weakness, strength equal bilaterally - Psychiatric Psychiatric: A&O x's 3, appropriate affect - Labs CBC & Chem 7: 03/09/19 07:21 03/09/19 07:21 Labs: Abnormal Lab Results - Last 24 Hours (Table) 03/08/19 03/09/19 03/09/19 Range/Units 21:19 07:21 07:21 WBC 13.8 H (3.8-10.6) k/uL Hgb 11.2 L (11.4-16.0) gm/dL Neutrophils # 12.7 H (1.3-7.7) k/uL Lymphocytes # 0.8 L (1.0-4.8) k/uL BUN 57 H (7-17) mg/dL Creatinine 1.68 H (0.52-1.04) mg/dL Glucose 196 H (74-99) mg/dL POC Glucose (mg/dL) 253 H (75-99) mg/dL Magnesium 2.5 H (1.6-2.3) mg/dL 03/09/19 03/09/19 03/09/19 Range/Units 07:42 11:40 17:22 WBC (3.8-10.6) k/uL Hgb (11.4-16.0) gm/dL Neutrophils # (1.3-7.7) k/uL Lymphocytes # (1.0-4.8) k/uL BUN (7-17) mg/dL Creatinine (0.52-1.04) mg/dL Glucose (74-99) mg/dL POC Glucose (mg/dL) 210 H 228 H 254 H (75-99) mg/dL Magnesium (1.6-2.3) mg/dL Microbiology - Last 24 Hours (Table) 03/06/19 06:21 Blood Culture - Preliminary Blood No Growth after 72 hours Assessment and Plan Assessment: Bilateral basal pneumonia clinically and radiographically improving Acute renal failure likely related to acute tubular necrosis versus drug related due to Toradol and intravascular volume depletion dehydration Recurrent shoulder dislocation Generalized weakness related to multifactorial processes including renal failure heart failure Likely acute on chronic diastolic heart failure echo reviewed Plan: Continue IV Rocephin for now Gentle rehydration DVT and peptic ulcer disease prophylaxis Monitor labs electrolytes closely Recommend PT and OT Follow-up surgery [facility] [place] for recurrent shoulder rotation Further recommendations pending plan of care as per clinical response of the patient UA and C&S results reviewed Time with Patient: Greater than 30
[2019-03-09 20:25] LABS: Glucose,Whole Blood 196 mg/dL (75-99)
[2019-03-09] MEDS: ATORVASTATIN 40 MG TAB PO SCH (20:32)
[2019-03-10 02:25] VITALS: RESP 18
[2019-03-10] MEDS: IPRATROPIUM-ALBUTEROL 3 ML NEB INHALATION SCH ×4 (03:26→16:03)
[2019-03-10] MEDS: methylPREDNISolone SOD SUCCI 125 MG/2 ML VIAL IV SCH ×2 (05:29→12:28)
[2019-03-10] MEDS: LEVOTHYROXINE 25 MCG TAB PO SCH (05:29)
[2019-03-10] MEDS: SYMBICORT 160-4.5 MCG INHALER INHALATION SCH (07:30)
[2019-03-10 07:46] LABS: Glucose,Whole Blood 195 mg/dL (75-99)
[2019-03-10] MEDS: GABAPENTIN 100 MG CAP PO SCH (08:01)
[2019-03-10] MEDS: SERTRALINE 100 MG TAB PO SCH (08:01)
[2019-03-10] MEDS: PANTOPRAZOLE 40 MG TABLET PO SCH (08:01)
[2019-03-10] MEDS: CEFDINIR 300 MG CAP PO SCH (08:01)
[2019-03-10] MEDS: CYANOCOBALAMIN 500 MCG TAB PO SCH (08:01)
[2019-03-10] MEDS: AMIODARONE 200 MG TAB PO SCH (08:02)
[2019-03-10] MEDS: DOCUSATE 100 MG CAP PO SCH (08:02)
[2019-03-10] MEDS: ASPIRIN 81 MG PO SCH (08:02)
[2019-03-10] MEDS: ACETAMINOPHEN TAB 325 MG TAB PO SCH (08:02)
[2019-03-10] MEDS: CLOPIDOGREL 75 MG TAB PO SCH (08:02)
[2019-03-10] MEDS: HEPARIN SODIUM,PORCINE 5,000 UNIT/ML 1 ML VIAL SQ SCH (08:03)
[2019-03-10] MEDS: INSULIN ASPART (NovoLOG) 100 UNIT/ML VIAL SQ SCH ×2 (08:04→12:28)
[2019-03-10 10:31] LABS: Basophils # (A) 0.1 k/uL (0-0.2); Basophils % (A) 0 %; Eosinophils % (A) 0 %; HCT 36.8 % (34.0-46.0); HGB 11.8 gm/dL (11.4-16.0); Hypochromasia Slight; Lymphocytes # (A) 0.6 k/uL (1.0-4.8); Lymphocytes % (A) 4 %; MCH 29.2 pg (25.0-35.0); MCHC 32.2 g/dL (31.0-37.0); MCV 90.8 fL (80.0-100.0); Mean Platelet Volume 7.5; Monocytes # (A) 0.3 k/uL (0-1.0); Monocytes % (A) 2 %; Neutrophils % (A) 93 %; Platelet Count 234 k/uL (150-450); RBC 4.06 m/uL (3.80-5.40); RDW 15.5 % (11.5-15.5)
[2019-03-10 10:38] LABS: Calcium 8.1 mg/dL (8.4-10.2); Potassium 3.4 mmol/L (3.5-5.1)
[2019-03-10 11:32] LABS: Glucose,Whole Blood 206 mg/dL (75-99)
[2019-03-10 13:59] VITALS: BP 149/72; TEMP 98.7
[2019-03-10 16:04] VITALS: PULSE 80
--- NOTE | 2019-03-10 17:05 | P.PN ---
Subjective Progress Note Date: 03/10/19 Principal diagnosis: Residual pneumonia at the lung bases, acute renal failure related to drug or ATN, generalized weakness and medical debility, acute on chronic hypoxic respiratory failure, diastolic heart failure echo revealed ejection fraction of 55% 03/10/2019, patient seen eval reexamined during the rounds denies any cough congestion and sputum production denies any chest pain patient was evaluated for placement in rehab at reviewed medications reviewed, patient is being placed in extended care facility 03/09/2019, patient seen eval reexamined during the rounds on 3 L nasal cannula breathing comfortably labs reviewed medications reviewed, Her WBC is 12.7 , going up to 13.8 K, however she is on steroids. Orthopedic team recommended patient to follow-up with [facility] for her recurrent shoulder dislocation 03/08/2019, patient seen eval reexamined during the rounds cuff congestion shortness of breath is improved patient is at room air oxygen is in mid 90s range denies any cough or sputum production denies any chest pain labs reviewed medications reviewed 03/07/2019, patient seen eval examined during the rounds computed tomography scan finding reviewed there is some basal pneumonia is present which can explain hypoxia patient remained short of breath but severity has improved FiO2 is decreased to 3 L sats are 95-96% 88-year-old female who was seen evaluated examined on medical floor patient has a complex history of coronary artery disease hypertension hypertensive cardiovascular disease, she presented at [facility] with a diagnosis of pneumonia developed acute renal failure and worsening of renal function patient was transferred over here, review of the data reveals that she has a known history of hypertension, coronary artery disease with prior PCI, most recent stent placement was in May 2018 at which time patient underwent stenting of the LAD, prior pacemaker implantation, hypertension, hyperlipidemia, history of degenerative joint disease, who resides at an adult foster residential, patient has been having a left shoulder discomfort, was treated on March 02 symptomatically, given Toradol and subsequently went back to the adult foster residential, she again re-presented back to the hospital, had her dislocated sh oulder replaced, and was also started on Levaquin for suspected pneumonia. Patient had been complaining of weakness, had apparently been having fevers as well. She presented to [facility], again diagnosed with pneumonia, subsequently developed renal failure, creatinine steadily increased from 0.8- 3.6, patient was also found to be in respiratory failure. Because of the worsening renal function and associated shortness of breath and respiratory failure patient was transferred to [facility] for further evaluation. EKG performed at [facility] showed a normal sinus rhythm with nonspecific ST- T wave changes. The chest x-ray performed over here at [facility] no pneumonia is seen, labs reviewed white cell count is normal protection was slightly low, BUN/creatinine has improved to 44 and 2.1 Objective - Vital Signs Vital signs: Vital Signs Temp 98.7 F 03/10/19 13:30 Pulse 80 03/10/19 16:17 Resp 18 03/10/19 13:30 BP 149/72 03/10/19 13:30 Pulse Ox 95 03/10/19 13:30 Intake & Output 03/09/19 03/10/19 03/10/19 18:59 06:59 18:59 Weight 87.8 kg Other: Voiding Method Diaper Diaper Diaper Incontinent Incontinent Incontinent # Voids 2 2 1 # Bowel Movements 1 1 1 - Exam - Constitutional General appearance: average body habitus, disheveled, mild distress - EENT Eyes: EOMI, PERRLA Ears: bilateral: normal - Neck Neck: normal ROM Carotids: bilateral: upstroke normal, bruit absent - Respiratory Respiratory: bilateral: diminished, rales, negative: dullness, rhonchi, wheezing - Cardiovascular Rhythm: regular Heart sounds: normal: S1, S2 - Gastrointestinal General gastrointestinal: decreased bowel sounds, distended, soft - Integumentary Integumentary: decreased turgor - Musculoskeletal Musculoskeletal: generalized weakness, strength equal bilaterally - Psychiatric Psychiatric: A&O x's 3, appropriate affect - Labs CBC & Chem 7: 03/10/19 09:44 03/10/19 09:44 Labs: Abnormal Lab Results - Last 24 Hours (Table) 03/09/19 03/09/19 03/10/19 Range/Units 17:22 20:23 07:15 WBC (3.8-10.6) k/uL Neutrophils # (1.3-7.7) k/uL Lymphocytes # (1.0-4.8) k/uL Potassium (3.5-5.1) mmol/L BUN (7-17) mg/dL Creatinine (0.52-1.04) mg/dL Glucose (74-99) mg/dL POC Glucose (mg/dL) 254 H 196 H 195 H (75-99) mg/dL Calcium (8.4-10.2) mg/dL 03/10/19 03/10/19 03/10/19 Range/Units 09:44 09:44 11:27 WBC 14.0 H (3.8-10.6) k/uL Neutrophils # 13.0 H (1.3-7.7) k/uL Lymphocytes # 0.6 L (1.0-4.8) k/uL Potassium 3.4 L (3.5-5.1) mmol/L BUN 57 H (7-17) mg/dL Creatinine 1.69 H (0.52-1.04) mg/dL Glucose 210 H (74-99) mg/dL POC Glucose (mg/dL) 206 H (75-99) mg/dL Calcium 8.1 L (8.4-10.2) mg/dL Microbiology - Last 24 Hours (Table) 03/06/19 06:21 Blood Culture - Preliminary Blood No Growth after 96 hours Assessment and Plan Assessment: Bilateral basal pneumonia clinically and radiographically improving Acute renal failure likely related to acute tubular necrosis versus drug related due to Toradol and intravascular volume depletion dehydration Recurrent shoulder dislocation Generalized weakness related to multifactorial processes including renal failure heart failure Likely acute on chronic diastolic heart failure echo reviewed Plan: Continue IV Rocephin for now Gentle rehydration DVT and peptic ulcer disease prophylaxis Monitor labs electrolytes closely Recommend PT and OT Follow-up surgery [facility] for recurrent shoulder rotation Further recommendations pending plan of care as per clinical response of the patient UA and C&S results reviewed Time with Patient: Greater than 30
--- NOTE | 2019-03-10 17:14 | PN ---
PROGRESS NOTE Patient is seen for followup for acute kidney injury. Her renal function has improved. Creatinine has been staying at about 1.6 for the last 2 days. It is down from about 3.0 on initial admission. Patient was maintained on IV fluids. Currently she is off of IV fluids, tolerating oral intake well. On examination, blood pressure this morning was 129/77, heart rate of 80 per minute. She is afebrile. EXAMINATION OF THE HEART: S1 and S2. EXAMINATION OF LUNGS: Bilateral breath sounds are heard. ABDOMEN: Soft, non-tender. Examination of lower extremities shows trace edema bilaterally. MULTISKILL OPERATOR exam is grossly intact. Patient's left arm is in a sling. Labs show sodium 139, potassium 3.4, BUN 57, serum creatinine 1.69, hemoglobin 11.8 g/dL. ASSESSMENT: 1. Acute kidney injury, prerenal, currently resolved. Patient is currently off of IV fluids. She was hydrated initially and taken off of angiotensin receptor blockers. 2. Hypokalemia associated with decreased oral intake, status post replacement. 3. History of coronary artery disease with previous coronary stenting in May 2018. 4. Mild pulmonary hypertension. PLAN: Patient is stable for discharge from nephrology standpoint. She will need followup as outpatient in about 1-2 weeks' time. Continue off of angiotensin receptor blockers. She is also encouraged to avoid use of any nonsteroidal anti-inflammatory agents. MMODL / IJN: [id number] /
[2019-03-11] MEDS ORDERED: ERGOCALCIFEROL 50,000 UNIT CAP PO SCH (09:00)
--- NOTE | 2019-03-12 07:11 | CDI ---
Documentation Clarification Form Date: 03/12/2019 6:58:59 AM From: Raeann Sutton Phone: If you have a question about this query, please contact Dipika Clancy Salesperson Jewelry at [phone] between 8am and 5pm. Admit Date: 03/06/2019 1:36:00 PM Patient Name: Ruth Ambrocio Visit Number: [id number] Discharge Date: 03/10/2019 5:00:00 PM ATTENTION: The Clinical Documentation Specialists (CDI) and [facility] Coding Staff appreciate your assistance in clarifying documentation. Please respond to the clarification below the line at the bottom and electronically sign. The CDI & [facility] Coding staff will review the response and follow-up if needed. Please note: Queries are made part of the Legal Health Record. If you have any questions, please contact the author of this message via ITS. Dr. Angela Bobo Conflicting documentation has been found in the medical record: Cardiac consult documents no clear evidence CHF. PN's document Acute/chronic diastolic CHF and Pulmonary Consult documents acute/chronic systolic CHF. Please clarify. Did patient have exacerbation of CHF? IF so was diastolic or systolic? History/Risk Factors: respiratory failure. ATN HTN cardiiovascular disease. Clinical Indicators: BNP 701 03/07 CXR vascular congestion, EF 50-55 In your opinion, what is the most clinically appropriate diagnosis for this patient? CHF exacerbation ruled out Acute and Chronic systolic CHF Acute and Chronic diastolic CHF Other explanation of clinical findings Unable to determine (no explanation for clinical findings) __pt has chronic chf , no acute exacerbation . MTDD
--- NOTE | 2019-03-17 23:05 | P.DS ---
Providers Date of admission: 03/06/19 13:36 Attending physician: Teo Acosta MD Consults: 03/06/19 00:21 Consult Physician Stat Consulting Provider: Mely Gonzalez Consult Reason/Comments: FIDE Do you want consulting provider notified?: Yes 03/06/19 01:04 Consult Physician Routine Consulting Provider: Ayaan Ferreira Consult Reason/Comments: CHF fluid overload Do you want consulting provider notified?: Yes 03/06/19 01:44 Consult Physician Routine Consulting Provider: Jakub Castaneda Consult Reason/Comments: Sob- Harsh cough. Do you want consulting provider notified?: Yes, Notify in am 03/06/19 12:01 Consult Physician Routine Consulting Provider: Jason Chowdary Consult Reason/Comments: shoulder dislocation Do you want consulting provider notified?: Yes Primary care physician: Jason Bello Hospital Course: Diagnoses: Acute kidney injury, improving Community-acquired pneumonia, improving Acute COPD exacerbation Recurrent shoulder dislocation. Sling is in a Place patient refused follow-up or surgery Generalized weakness History of coronary artery disease History of congestive heart failure, not in acute exacerbation Hypertension Hyperlipidemia History of stool and urine incontinence Hospital course: This is a pleasant 88 years old female with past medical history of heart failure, hyperlipidemia, hypertension, coronary artery disease, as her arthritis, urinary and stool incontinence, recurrent shoulder dislocation. Presents with signs and symptoms of pneumonia and acute kidney injury. Patient is generally weak however she is improving. Her creatinine coming down from 3.6 down to 1.7 and 1.6 today. IV fluid was stopped. Patient continue on steroids and oral antibiotics for pneumonia. Her WBC is 12.7 , going up to 14 K, however she is on steroids. Orthopedic team recommended patient to follow-up with [facility] for her recurrent shoulder dislocation, I discussed this recommendation with the patient and family at bedside and they declined surgery and follow up with [facility] at this time, patient states that she is 88 yo and she does not want anymore surgery. She has a sling in place. Risks benefits and alternatives are explained and she verbalized understanding and acceptance. Patient is on oxygen at home at 3 L/m. patient showed interval improvement with no chest pain or dyspnea. No cough and patient states she has regular bowel movement this morning, she is tolerating diet well she has no nausea or vomiting and no abdominal pain. Her wheezing is significantly improved. Patient was evaluated by physical therapy recommended subacute rehab for her generalized weakness. I discussed the case with the patient and she agrees to quit rehab. Patient was cleared for discharge by pulmonary, cardiology, and nephrology team. Problems and management plan were discussed with the patient and he verbalized understanding and acceptance Patient was found stable and can be discharged home however he needs follow-up as an outpatient. pt agrees with appointment made for her with and Adriana, pt also instructed to f/u with her fisher sponge hooking and she agree Gen: patient is a AAOx3, no distress CVS: S1-S2, RRR, no murmur Lungs: B/L CTA, no wheezing Abdomen: soft, no distention, no tenderness, positive bowel sounds Extremity: no leg edema or induration Time spent more than 35 minutes Plan - Discharge Summary Discharge Rx Participant: No New Discharge Prescriptions: New Cefdinir [Omnicef] 300 mg PO DAILY 5 Days #5 cap predniSONE 10 mg PO DIRECTED #30 tab Ipratropium-Albuterol Nebulize [Duoneb 0.5 mg-3 mg/3 ml Soln] 3 ml INHALATION RT-Q4H PRN #30 ampul.neb PRN Reason: Shortness Of Breath Or Wheezing Continue Sertraline [Zoloft] 100 mg PO DAILY Atorvastatin [Lipitor] 40 mg PO HS Losartan/Hydrochlorothiazide [Losartan-Hctz 100-12.5 mg Tab] 1 tab PO DIRECTED Clopidogrel [Plavix] 75 mg PO DAILY Amiodarone [Cordarone] 200 mg PO DAILY Multivit with Calcium,Iron,Min [Women's Multivitamin] 1 tab PO DAILY Ergocalciferol (Vitamin D2) [Vitamin D2] 50,000 unit PO WE Cyanocobalamin (Vitamin B-12) [Vitamin B-12] 1,000 mcg PO DAILY Ipratropium-Albuterol Nebulize [Duoneb 0.5 mg-3 mg/3 ml Soln] 3 ml INHALATION RT-TID ampul.neb Gabapentin [Neurontin] 100 mg PO BID #6 cap Acetaminophen Tab [Tylenol] 325 mg PO DAILY amLODIPine [Norvasc] 5 mg PO DAILY Aspirin EC [Ecotrin Low Dose] 81 mg PO DAILY Levothyroxine Sodium [Synthroid] 25 mcg PO DAILY Nitroglycerin Sl Tabs [Nitrostat] 0.4 mg SUBLINGUAL Q5M PRN PRN Reason: Chest Pain Ranitidine HCl [Zantac] 150 mg PO HS Melatonin 10 mg PO HS Docusate [Colace] 100 mg PO BID Albuterol Sulfate [Proair Hfa] 2 puff INHALATION RT-Q6H PRN PRN Reason: Shortness Of Breath Discontinued Furosemide [Lasix] 20 mg PO DAILY Potassium Chloride Oral Liquid 20 meq PO BID Discharge Medication List Amiodarone [Cordarone] 200 mg PO DAILY 06/24/18 [History] Atorvastatin [Lipitor] 40 mg PO HS 06/24/18 [History] Clopidogrel [Plavix] 75 mg PO DAILY 06/24/18 [History] Cyanocobalamin (Vitamin B-12) [Vitamin B-12] 1,000 mcg PO DAILY 06/24/18 [History] Ergocalciferol (Vitamin D2) [Vitamin D2] 50,000 unit PO WE 06/24/18 [History] Losartan/Hydrochlorothiazide [Losartan-Hctz 100-12.5 mg Tab] 1 tab PO DIRECTED 06/24/18 [History] Multivit with Calcium,Iron,Min [Women's Multivitamin] 1 tab PO DAILY 06/24/18 [History] Sertraline [Zoloft] 100 mg PO DAILY 06/24/18 [History] Gabapentin [Neurontin] 100 mg PO BID #6 cap 11/18/18 [Rx] Ipratropium-Albuterol Nebulize [Duoneb 0.5 mg-3 mg/3 ml Soln] 3 ml INHALATION RT-TID ampul.neb 11/18/18 [Rx] Acetaminophen Tab [Tylenol] 325 mg PO DAILY 02/10/19 [History] Aspirin EC [Ecotrin Low Dose] 81 mg PO DAILY 02/10/19 [History] Levothyroxine Sodium [Synthroid] 25 mcg PO DAILY 02/10/19 [History] Nitroglycerin Sl Tabs [Nitrostat] 0.4 mg SUBLINGUAL Q5M PRN 02/10/19 [History] amLODIPine [Norvasc] 5 mg PO DAILY 02/10/19 [History] Albuterol Sulfate [Proair Hfa] 2 puff INHALATION RT-Q6H PRN 03/05/19 [History] Docusate [Colace] 100 mg PO BID 03/05/19 [History] Melatonin 10 mg PO HS 03/05/19 [History] Ranitidine HCl [Zantac] 150 mg PO HS 03/05/19 [History] Cefdinir [Omnicef] 300 mg PO DAILY 5 Days #5 cap 03/10/19 [Rx] Ipratropium-Albuterol Nebulize [Duoneb 0.5 mg-3 mg/3 ml Soln] 3 ml INHALATION RT-Q4H PRN #30 ampul.neb 03/10/19 [Rx] predniSONE 10 mg PO DIRECTED #30 tab 03/10/19 [Rx] Follow up Appointment(s)/Referral(s): Tej Palacios PAC [PHYSICIAN [facility]ER] - 04/01/19 11:00 am (othopedic for recurrent shoulder dislocation ) Mely Gonzalez MD [STAFF PHYSICIAN] - 1 Week (Office will be in contact with patient upon discharge to set up a follow up appointment) [facility], [NON-STAFF] - As Needed Jakub Castaneda MD [STAFF PHYSICIAN] - 03/24/19 9:45 am () Activity/Diet/Wound Care/Special Instructions: Call Wen at [facility] at discharge with report- [phone] Discharge Disposition: TRANSFER TO SNF/ECF
== END 2019-03-10 17:00 | DRG 682 ==
LOC: 3SCARD 22:01 → OBSVTOIN 03-06 13:36 → 4SSUR 03-08 22:24
PROVIDERS: ADMIT Internal Medicine; ATTEND Internal Medicine
DX: N17.0 Acute kidney failure with tubular necrosis (principal); J18.9 Pneumonia, unspecified organism; J96.21 Acute and chronic respiratory failure with hypoxia; J44.0 Chronic obstructive pulmonary disease with (acute) lower respiratory infection; J44.1 Chronic obstructive pulmonary disease with (acute) exacerbation; T39.8X5A Adverse effect of other nonopioid analgesics and antipyretics, not elsewhere classified, initial encounter; T46.5X5A Adverse effect of other antihypertensive drugs, initial encounter; T50.2X5A Adverse effect of carbonic-anhydrase inhibitors, benzothiadiazides and other diuretics, initial encounter; E03.9 Hypothyroidism, unspecified; E78.5 Hyperlipidemia, unspecified; E86.0 Dehydration; E87.6 Hypokalemia; I08.1 Rheumatic disorders of both mitral and tricuspid valves; I11.0 Hypertensive heart disease with heart failure; I25.10 Atherosclerotic heart disease of native coronary artery without angina pectoris; I25.2 Old myocardial infarction; I27.20 Pulmonary hypertension, unspecified; M19.90 Unspecified osteoarthritis, unspecified site; M24.412 Recurrent dislocation, left shoulder; R32 Unspecified urinary incontinence; R15.9 Full incontinence of feces; Z79.02 Long term (current) use of antithrombotics/antiplatelets; Z79.52 Long term (current) use of systemic steroids; Z79.82 Long term (current) use of aspirin; Z79.890 Hormone replacement therapy; Z79.899 Other long term (current) drug therapy; Z80.1 Family history of malignant neoplasm of trachea, bronchus and lung; Z82.3 Family history of stroke; Z82.49 Family history of ischemic heart disease and other diseases of the circulatory system; Z82.0 Family history of epilepsy and other diseases of the nervous system; Z87.01 Personal history of pneumonia (recurrent); Z90.49 Acquired absence of other specified parts of digestive tract; Z95.0 Presence of cardiac pacemaker; Z95.5 Presence of coronary angioplasty implant and graft; Z99.81 Dependence on supplemental oxygen; Z88.5 Allergy status to narcotic agent; F32.9 Major depressive disorder, single episode, unspecified; F41.9 Anxiety disorder, unspecified; E55.9 Vitamin D deficiency, unspecified; I50.9 Heart failure, unspecified
CPT/HCPCS: 71045; 71250; 76770; 80048; 81003; 83735; 83880; 84145; 84484; 85025; 87040; 87086; 87502; 93306; 94640; 94760